=== PATIENT | male | born 1950 | race Caucasian/White ===

== ENCOUNTER 2016-06-21 12:21 | Observation (INO) | payer MEDICARE, OTHER ==
[2016-06-21] MEDS ORDERED: SODIUM CHLORIDE 0.9% 1,000 ML IV STA (12:55)
[2016-06-21] MEDS ORDERED: SODIUM CHLORIDE 0.9% 500 ML IV STA (12:55)
[2016-06-21] MEDS ORDERED: PANTOPRAZOLE 40 MG/10 ML VIAL IVP STA (12:56)
[2016-06-21 14:19] LABS: Basophils # (A) 0.1 k/uL (0-0.2); Basophils % (A) 1 %; CH 31.9; CHCM 33.9; Eosinophils # (A) 0.3 k/uL (0-0.7); Eosinophils % (A) 3 %; HCT 31.6 % (39.0-53.0); HDW 2.62; HGB 10.7 gm/dL (13.0-17.5); Luc % (Auto) 2; Lymphocytes % (A) 21 %; MCHC 33.9 g/dL (31.0-37.0); MCV 94.4 fL (80.0-100.0); Mean Platelet Volume 7.3; Monocytes # (A) 0.5 k/uL (0-1.0); Monocytes % (A) 5 %; Neutrophils # (A) 6.2 k/uL (1.3-7.7); Neutrophils % (A) 67 %; RBC 3.34 m/uL (4.30-5.90); RDW 13.8 % (11.5-15.5); WBC 9.2 k/uL (3.8-10.6); WBC (Perox) 9.63
[2016-06-21 14:22] LABS: Prothrombin Time 10.6 sec (9.0-12.0)
[2016-06-21 14:28] LABS: Calcium 8.4 mg/dL (8.4-10.2); Potassium 4.4 mmol/L (3.5-5.1); Total Bilirubin 0.3 mg/dL (0.2-1.3)
--- NOTE | 2016-06-21 16:34 | ED ---
Recheck HPI - General Chief Complaint: Recheck/Abnormal Lab/Rx Stated Complaint: POSS ULCER - SENT BY [facility] IN [place] Time Seen by Provider: 06/21/16 12:41 Source: patient Mode of arrival: ambulatory Limitations: no limitations - History of Present Illness Initial Comments: Extremities 5 years old male seen at the [facility] yesterday he had some blood work done and he also had some rectal bleed the call them today and advised him to come to the ER he did know his baseline hemoglobin level but he felt that he he fell from a bit of abdominal pain this pain is similar to when he had a duodenal ulcer he also felt very weak, just ambulating few feet makes him short winded planes about mild epigastric pain he is bit short winded no chest pain he is profoundly weak he saying he denies any blood thinners no frequency urgency dysuria no symptoms of TIA or CVA - Related Data Home Medications Medication Instructions Recorded Confirmed Allopurinol [Allopurinol] 100 mg PO DAILY 06/21/16 06/21/16 Lisinopril-Hctz 20-25 mg 1 tab PO DAILY 06/21/16 06/21/16 [Zestoretic 20-25] Omeprazole [PriLOSEC] 20 mg PO DAILY 06/21/16 06/21/16 amLODIPine BESYLATE [Amlodipine 5 mg PO DAILY 06/21/16 06/21/16 Besylate] Allergies Allergy/AdvReac Type Severity Reaction Status Date / Time No Known Allergies Allergy Verified 06/21/16 13:51 Review of Systems ROS Statement: Those systems with pertinent positive or pertinent negative responses have been documented in the HPI. ROS Other: All systems not noted in ROS Statement are negative. Past Medical History Past Medical History: Hypertension Additional Past Medical History / Comment(s): ulcers, gout History of Any Multi-Drug Resistant Organisms: None Reported Past Psychological History: No Psychological Hx Reported Smoking Status: Former smoker Past Alcohol Use History: None Reported Past Drug Use History: None Reported General Exam - General Exam Comments Initial Comments: General: The patient is awake and alert, in no distress, and does not appear acutely ill. Skin: Skin is warm and dry and no rashes or lesions are noted. Eye: Pupils are equal, round and reactive to light, extra-ocular movements are intact; there is normal conjunctiva bilaterally. Ears, nose, mouth and throat: There are moist mucous membranes and no oral lesions. Neck: The neck is supple, there is no tenderness or JVD. Cardiovascular: There is a regular rate and rhythm. No murmur, rub or gallop is appreciated. Respiratory: To auscultation bilateral, no wheezing no rhonchi no distress respiratory espinoza noticed Gastrointestinal: Mildly tender in epigastric area. Back: There is no tenderness to palpation in the midline. There is no obvious deformity. Musculoskeletal: Normal ROM, no tenderness, There is no pedal edema. There is no calf tenderness or swelling. No cords were appreciated. Neurological: CN II-XII intact, Cranial nerves III through XII are intact. There are no obvious motor or sensory deficits. Coordination appears grossly intact. Speech is normal. Psychiatric: Cooperative, appropriate mood & affect, normal judgment. Limitations: no limitations Course Vital Signs 06/21/16 06/21/16 06/21/16 12:23 12:40 14:15 Temperature 98.1 F Pulse Rate 92 99 77 Respiratory 20 18 16 Rate Blood Pressure 99/53 106/52 94/55 O2 Sat by Pulse 98 99 96 Oximetry 06/21/16 06/21/16 15:44 16:14 Temperature Pulse Rate 87 83 Respiratory 16 16 Rate Blood Pressure 117/60 103/55 O2 Sat by Pulse 96 98 Oximetry Him EKG is normal sinus rhythm medical rate is 93 ID interval is 152 QRS duration is 88 QT/QTc is 362/450 review of this EKG does not reveal any ST elevation or ST depression Medical Decision Making - Lab Data Result diagrams: 06/21/16 12:40 06/21/16 12:40 Lab Results 06/21/16 06/21/16 06/21/16 Range/Units 12:40 12:40 12:40 WBC 9.2 (3.8-10.6) k/uL RBC 3.34 L (4.30-5.90) m/uL Hgb 10.7 L (13.0-17.5) gm/dL Hct 31.6 L (39.0-53.0) % MCV 94.4 (80.0-100.0) fL MCH 32.0 (25.0-35.0) pg MCHC 33.9 (31.0-37.0) g/dL RDW 13.8 (11.5-15.5) % Plt Count 348 (150-450) k/uL Neutrophils % 67 % Lymphocytes % 21 % Monocytes % 5 % Eosinophils % 3 % Basophils % 1 % Neutrophils # 6.2 (1.3-7.7) k/uL Lymphocytes # 2.0 (1.0-4.8) k/uL Monocytes # 0.5 (0-1.0) k/uL Eosinophils # 0.3 (0-0.7) k/uL Basophils # 0.1 (0-0.2) k/uL PT 10.6 (9.0-12.0) sec INR 1.0 (<1.1) Sodium 140 (137-145) mmol/L Potassium 4.4 (3.5-5.1) mmol/L Chloride 105 (98-107) mmol/L Carbon Dioxide 20 L (22-30) mmol/L Anion Gap 15 mmol/L BUN 51 H (9-20) mg/dL Creatinine 1.80 H (0.66-1.25) mg/dL Est GFR (MDRD) Af Amer 46 (>60 ml/min/1.73 sqM) Est GFR (MDRD) Non-Af 38 (>60 ml/min/1.73 sqM) Glucose 101 H (74-99) mg/dL Calcium 8.4 (8.4-10.2) mg/dL Total Bilirubin 0.3 (0.2-1.3) mg/dL AST 35 (17-59) U/L ALT 60 (21-72) U/L Alkaline Phosphatase 107 (38-126) U/L Total Protein 7.0 (6.3-8.2) g/dL Albumin 4.1 (3.5-5.0) g/dL Amylase 101 (30-110) U/L Lipase 437 H (23-300) U/L Stool Occult Blood (Negative) Blood Type Blood Type Recheck Antibody Screen Spec Expiration Date 06/21/16 06/21/16 Range/Units 12:40 15:40 WBC (3.8-10.6) k/uL RBC (4.30-5.90) m/uL Hgb (13.0-17.5) gm/dL Hct (39.0-53.0) % MCV (80.0-100.0) fL MCH (25.0-35.0) pg MCHC (31.0-37.0) g/dL RDW (11.5-15.5) % Plt Count (150-450) k/uL Neutrophils % % Lymphocytes % % Monocytes % % Eosinophils % % Basophils % % Neutrophils # (1.3-7.7) k/uL Lymphocytes # (1.0-4.8) k/uL Monocytes # (0-1.0) k/uL Eosinophils # (0-0.7) k/uL Basophils # (0-0.2) k/uL PT (9.0-12.0) sec INR (<1.1) Sodium (137-145) mmol/L Potassium (3.5-5.1) mmol/L Chloride (98-107) mmol/L Carbon Dioxide (22-30) mmol/L Anion Gap mmol/L BUN (9-20) mg/dL Creatinine (0.66-1.25) mg/dL Est GFR (MDRD) Af Amer (>60 ml/min/1.73 sqM) Est GFR (MDRD) Non-Af (>60 ml/min/1.73 sqM) Glucose (74-99) mg/dL Calcium (8.4-10.2) mg/dL Total Bilirubin (0.2-1.3) mg/dL AST (17-59) U/L ALT (21-72) U/L Alkaline Phosphatase (38-126) U/L Total Protein (6.3-8.2) g/dL Albumin (3.5-5.0) g/dL Amylase (30-110) U/L Lipase (23-300) U/L Stool Occult Blood Positive (Negative) Blood Type A Positive Blood Type Recheck No Antibody Screen NEGATIVE Spec Expiration Date 06/24/2016 - 2339 Critical Care Time Total Critical Care Time: 35 Critical Care Time: Patient felt that meal to do a duodenal ulcer him he had a blood work done yesterday hemoglobin has dropped lower than his baseline he is on a blood thinners his lipase is slightly elevated as well for 37, blood was positive but didn't see any kassi dark tarry blood or bright red and his blood pressure was low was giving him a fluid bolus now blood (up as an IV Protonix spoke to Dr. Foreman he be admitted to his service and now will get Dr. Mere Rutherford on board and then will keep an eye on his lipase [facility] [place] office CT of the abdomen and considering his elevated lipase since his creatinine is elevated I have hydrated him and I think we have typed and crossed for transfusion in case his hemoglobin drops, once his creatinine Stabilized he could have a CT abdomen with IV contrast as a inpatient Disposition Clinical Impression: GI bleed, Hypotension, Elevated lipase Disposition: ADMITTED IP TO THIS HOSP Condition: Good
[2016-06-21] MEDS ORDERED: MORPHINE SULFATE 4 MG/ML SYRINGE IV PRN (16:38)
[2016-06-21] MEDS ORDERED: NALOXONE 0.4 MG/ML 1 ML VIAL IV PRN (16:38)
[2016-06-21] MEDS ORDERED: ACETAMINOPHEN TAB 325 MG TAB PO PRN (16:38)
--- NOTE | 2016-06-21 17:22 | XR ---
EXAMINATION TYPE: XR chest 2V DATE OF EXAM: 06/21/2016 5:16 PM COMPARISON: 09/02/2008 HISTORY: Abdominal pain. Chest pain. TECHNIQUE: Frontal and lateral views of the chest are obtained. FINDINGS: There is no heart failure nor confluent pneumonic infiltrate. There are no hilar masses. T here are chest leads. Only thorax is intact. IMPRESSION: No active cardiopulmonary disease. No change.
--- NOTE | 2016-06-21 17:24 | XR ---
EXAMINATION TYPE: XR KUB DATE OF EXAM: 06/21/2016 5:16 PM COMPARISON: 09/01/2008 HISTORY: Abdominal pain TECHNIQUE: 4 views FINDINGS: There is no sign of intestinal obstruction or pneumoperitoneum. Fecal pattern is normal. Th ere is no sign of a mass. Lung bases are clear. There are no pathologic calcifications over the kidne ys. IMPRESSION: Nonacute abdomen. No change.
[2016-06-21 19:00] VITALS: BMI 35.4
[2016-06-21 19:43] LABS: Basophils % (A) 1 %; CHCM 32.9; Eosinophils # (A) 0.3 k/uL (0-0.7); Eosinophils % (A) 4 %; HCT 28.4 % (39.0-53.0); HDW 2.68; HGB 9.5 gm/dL (13.0-17.5); Luc # (Auto) 0.19; Luc % (Auto) 3; Lymphocytes # (A) 1.7 k/uL (1.0-4.8); Lymphocytes % (A) 26 %; MCH 31.8 pg (25.0-35.0); MCHC 33.7 g/dL (31.0-37.0); MCV 94.6 fL (80.0-100.0); Mean Platelet Volume 7.3; Monocytes # (A) 0.4 k/uL (0-1.0); Monocytes % (A) 6 %; Neutrophils # (A) 3.8 k/uL (1.3-7.7); Neutrophils % (A) 60 %; RDW 13.6 % (11.5-15.5); WBC 6.4 k/uL (3.8-10.6); WBC (Perox) 6.78
[2016-06-22 00:54] LABS: Basophils % (A) 1 %; CH 31.6; CHCM 33.1; Eosinophils # (A) 0.3 k/uL (0-0.7); Eosinophils % (A) 5 %; HCT 29.3 % (39.0-53.0); HDW 2.61; HGB 9.2 gm/dL (13.0-17.5); Luc # (Auto) 0.18; Luc % (Auto) 3; Lymphocytes # (A) 2.1 k/uL (1.0-4.8); Lymphocytes % (A) 33 %; MCH 30.4 pg (25.0-35.0); MCHC 31.6 g/dL (31.0-37.0); MCV 96.2 fL (80.0-100.0); Mean Platelet Volume 7.6; Monocytes # (A) 0.4 k/uL (0-1.0); Monocytes % (A) 7 %; Neutrophils # (A) 3.3 k/uL (1.3-7.7); Neutrophils % (A) 52 %; RBC 3.04 m/uL (4.30-5.90); RDW 13.8 % (11.5-15.5); WBC 6.3 k/uL (3.8-10.6); WBC (Perox) 6.39
[2016-06-22 07:48] LABS: Basophils % (A) 1 %; CH 31.2; CHCM 33.2; Eosinophils # (A) 0.2 k/uL (0-0.7); Eosinophils % (A) 4 %; HCT 29.1 % (39.0-53.0); HDW 2.66; HGB 9.9 gm/dL (13.0-17.5); Luc # (Auto) 0.16; Luc % (Auto) 3; Lymphocytes # (A) 1.7 k/uL (1.0-4.8); Lymphocytes % (A) 30 %; MCH 32.3 pg (25.0-35.0); MCHC 34.1 g/dL (31.0-37.0); MCV 94.5 fL (80.0-100.0); Monocytes # (A) 0.4 k/uL (0-1.0); Monocytes % (A) 7 %; Neutrophils # (A) 3.1 k/uL (1.3-7.7); Neutrophils % (A) 56 %; RBC 3.08 m/uL (4.30-5.90); RDW 13.7 % (11.5-15.5); WBC 5.6 k/uL (3.8-10.6); WBC (Perox) 5.88
[2016-06-22 07:56] LABS: ALT 53 U/L (21-72); AST 28 U/L (17-59); Alkaline Phosphatase 86 U/L (38-126); Anion Gap 9 mmol/L; Blood Urea Nitrogen 30 mg/dL (9-20); Calcium 8.3 mg/dL (8.4-10.2); Carbon Dioxide 24 mmol/L (22-30); Chloride 110 mmol/L (98-107); Glucose 96 mg/dL (74-99); Non-African American GFR(MDRD) 56 (>60 ml/min/1.73 sqM); Potassium 4.6 mmol/L (3.5-5.1); Sodium 143 mmol/L (137-145); Total Bilirubin 0.4 mg/dL (0.2-1.3); Total Protein 6.4 g/dL (6.3-8.2)
[2016-06-22] MEDS ORDERED: PANTOPRAZOLE 40 MG/10 ML VIAL IV SCH (09:00)
--- NOTE | 2016-06-22 09:54 | P.CONS ---
History of Present Illness - Reason for Consult Consult date: 06/22/16 GI bleed history of duodenal ulcer Requesting physician: Kalina Foreman - History of Present Illness 65-year-old [facility] hypertension, duodenal ulcer disease several years ago and gout. Presented to the ER with mild abdominal pain in the midepigastrium with black colored stool x 4 days similar to when he had a duodenal ulcer several years ago. Patient states he had an EGD performed by Dr. Chauhan several years ago with findings of "large duodenal ulcer". Denies ETOH, ASA or NSAID usage. Few doses of Pepto-Bismol a few days ago. Mild epigastric discomfort no emesis. No weight loss or fever. Hemoglobin 10.7 on admission currently 9.2. White count 6.3. BUN 51 creatinine 1.8. Hemoccult stool positive. Review of Systems Constitutional: Denies fever, chills, sweats, weight gain, or loss. HEENT: Negative for migraines, blurred vision or loss, earaches, drainage, tinnitus, oral mucosal lesions, dysphagia, or odynophagia. Cardiac: Hypertension. Negative for chest pain, arrhythmias, or palpitation. Respiratory: Negative for shortness of breath, hemoptysis, cough, or sputum production. Gastrointestinal: See HPI for pertinent findings. Genitourinary: Negative for hematuria, urgency, frequency, polyuria, dysuria, or penile discharge. Musculoskeletal: History of gout. Negative for muscle aches, swelling, arthritis, and arthralgias. Neurologic: Negative for stroke or TIA. Endocrine: Negative for thyroid problems. Skin: Negative for rash or itching. Psychiatric: Negative history for depression and anxiety Past Medical History Past Medical History: Hypertension Additional Past Medical History / Comment(s): ulcers, gout History of Any Multi-Drug Resistant Organisms: None Reported Past Surgical History: Appendectomy, Tonsillectomy Additional Past Surgical History / Comment(s): COLONOSCOPY, EGD [facility] DR Audie CHAUHAN 6 YEARS AGO FOR DUODENAL ULCER, RIGHT ROTATER CUFF, Past Anesthesia/Blood Transfusion Reactions: No Reported Reaction Past Psychological History: No Psychological Hx Reported Smoking Status: Never smoker Past Alcohol Use History: None Reported Past Drug Use History: None Reported - Past Family History Father Family Medical History: Prostate Disorder Additional Family Medical History / Comment(s): FROM PROSATE CA, DUODENAL ULCER Medications and Allergies Home Medications Medication Instructions Recorded Confirmed Type Allopurinol [Allopurinol] 100 mg PO DAILY 06/21/16 06/21/16 History Lisinopril-Hctz 20-25 mg 1 tab PO DAILY 06/21/16 06/21/16 History [Zestoretic 20-25] Omeprazole [PriLOSEC] 20 mg PO DAILY 06/21/16 06/21/16 History amLODIPine BESYLATE [Amlodipine 5 mg PO DAILY 06/21/16 06/21/16 History Besylate] Allergies Allergy/AdvReac Type Severity Reaction Status Date / Time No Known Allergies Allergy Verified 06/21/16 13:51 Physical Exam Vitals: Vital Signs Temp Pulse Pulse Resp BP BP Pulse Ox 06/22/16 04:00 16 06/22/16 03:44 98 F 102 H 16 136/68 96 06/21/16 23:47 97.8 F 88 16 105/61 95 06/21/16 23:41 16 06/21/16 20:00 16 06/21/16 18:41 97.7 F 90 16 115/57 98 06/21/16 17:30 97.3 F L 85 18 110/55 99 Intake and Output 06/21/16 06/22/16 06/22/16 22:59 06:59 14:59 Other: # Voids 1 Weight 118.7 kg General appearance: The patient is alert, oriented, in no acute distress. HET: Head is normocephalic and atraumatic. Pupils are equal and reactive. Oropharynx is clear without lesions. Neck: Supple without lymphadenopathy. Trachea midline. Heart: S1 S2. Regular rate and rhythm. Lungs: No crackles or wheezes are heard. Abdomen: Soft, mild midepigastric tenderness, nondistended with bowel sounds. No peritoneal signs. No palpable organomegaly or masses. Extremities: Normal skin color and turgor. No cyanosis, rash, ulceration, clubbing, or edema. Radial and pedal pulses are 2/4 bilaterally. Neurological: No focal deficits. Strength and sensation are grossly intact. Results CBC & Chem 7: 06/22/16 06:49 06/22/16 06:49 Labs: Abnormal Lab Results - Last 24 Hours (Table) 06/21/16 06/22/16 Range/Units 19:02 00:26 RBC 3.00 L 3.04 L (4.30-5.90) m/uL Hgb 9.5 L 9.2 L (13.0-17.5) gm/dL Hct 28.4 L 29.3 L (39.0-53.0) % Assessment and Plan (1) GI bleed Narrative/Plan: Possible recurrent peptic ulcer disease. History of duodenal ulcer. Status: Acute (2) Acute blood loss anemia Status: Acute Plan: 1. Protonix 40 mg IV every 12. 2. CBC monitoring. 3. We'll proceed with EGD evaluation this afternoon. The processor helper has discussed the risks, benefits and alternative therapies for the above-mentioned procedure and for both sedation/analgesia as well as necessary blood product administration, if indicated, as they pertain to this patient. The patient has indicated understanding and acceptance of the risks and procedures discussed. Thank you for this kind referral and the opportunity to participate in the care of your patient. This consultation was discussed with Dr. Moore. The impression and plan of care have been directed as dictated.
[2016-06-22] MEDS: PANTOPRAZOLE 40 MG/10 ML VIAL IV SCH ×2 (11:57→20:55)
[2016-06-22] MEDS: ALLOPURINOL 100 MG TAB PO SCH (11:57)
[2016-06-22 13:35] LABS: Basophils % (A) 1 %; CH 31.1; CHCM 33.3; Eosinophils # (A) 0.2 k/uL (0-0.7); Eosinophils % (A) 4 %; HCT 28.5 % (39.0-53.0); HGB 9.7 gm/dL (13.0-17.5); Luc # (Auto) 0.17; Luc % (Auto) 3; Lymphocytes # (A) 1.5 k/uL (1.0-4.8); Lymphocytes % (A) 27 %; MCH 31.9 pg (25.0-35.0); MCHC 33.9 g/dL (31.0-37.0); Mean Platelet Volume 7.1; Monocytes # (A) 0.4 k/uL (0-1.0); Monocytes % (A) 7 %; Neutrophils # (A) 3.1 k/uL (1.3-7.7); Neutrophils % (A) 58 %; RBC 3.03 m/uL (4.30-5.90); RDW 13.6 % (11.5-15.5); WBC 5.4 k/uL (3.8-10.6); WBC (Perox) 5.61
--- NOTE | 2016-06-22 14:13 | CONS ---
DATE OF CONSULTATION: 06/22/2016 REASON FOR CONSULTATION: Renal failure. HISTORY OF PRESENT ILLNESS: Patient is a 65-year-old white male with no prior history of kidney disease. He was admitted to the hospital with complaints of rectal bleeding. He also had some abdominal pain and overall not feeling well. He is scheduled for an endoscopy today. Patient did admit to history of use of nonsteroidal anti-inflammatory agents prior to admission. His blood pressure was low with systolic in the 90s when he first came in. Patient had been on EDNA inhibitors at home and he did admit to use of nonsteroidal anti-inflammatory agents. PAST MEDICAL HISTORY: 1. Hypertension. 2. Gastroesophageal reflux disease. 3. Hyperuricemia/gout. PAST SURGICAL HISTORY: None. SOCIAL HISTORY: Patient is an ex-smoker. No history of drug abuse or alcohol abuse. Medications at home included: 1. Allopurinol. 2. Lisinopril/hydrochlorothiazide. 3. Omeprazole. 4. Amlodipine. On examination, patient is comfortable, awake, alert, oriented x3. He is not in any acute distress. Blood pressure is 122/61, heart rate 96 per minute. He is afebrile. EXAMINATION OF THE HEART: S1 and S2. EXAMINATION OF THE LUNGS: Bilateral breath sounds are heard. ABDOMEN: Soft, nontender. Examination of lower extremities shows no evidence of edema. 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 Labs show sodium 143, potassium 4.6, chloride 110, BUN 30, serum creatinine 1.29. Hemoglobin 9.7 g/dL. ASSESSMENT: 1. Acute kidney injury. Appears to be mainly prerenal with serum creatinine improved from 1.8 to 1.29 mg/dL. Continue off of EDNA inhibitors. Continue to avoid nonsteroidal anti-inflammatory agents. Patient has been maintained on IV fluids, which we can continue until he is eating. 2. Rule out chronic kidney disease. We do not have any previous labs available for comparison at this time. 3. Peptic ulcer disease; scheduled for endoscopy today. PLAN: Continue off of EDNA inhibitors. Continue IV fluids. Avoid NSAIDs and repeat labs in a.m.
[2016-06-22] MEDS ORDERED: LACTATED RINGERS 1,000 ML IV ONE ×2 (17:00)
[2016-06-22] MEDS ORDERED: PROPOFOL 10 MG/ML 20 ML VIAL IV ONE (17:20)
--- NOTE | 2016-06-22 18:01 | P.PCN ---
Date of Procedure: 06/22/16 Procedure(s) Performed: Procedure: Esophagogastroduodenoscopy and biopsy. Preoperative diagnosis: Upper GI bleeding and anemia. Postoperative diagnosis: 1. Duodenal ulcer in the immediate post bulbar area not actively bleeding at the time of this exam or causing any gastric outlet obstruction. 2. Mild antral gastritis, biopsies obtained to rule out H. pylori infection. Preparation and sedation: Was provided by anesthesia. Brief clinical history: The patient is a 65-year-old male with PMH of hypertension, duodenal ulcer disease several years ago and gout. Presented to the ER with mild abdominal pain in the midepigastrium with black colored stool x 4 days similar to when he had a duodenal ulcer several years ago. Patient states he had an EGD performed by Dr. Chauhan several years ago with findings of "large duodenal ulcer". Denies ETOH, ASA or NSAID usage. Had few doses of Pepto- Bismol a few days ago. Mild epigastric discomfort no emesis. No weight loss or fever. Hemoglobin 10.7 on admission currently 9.2. White count 6.3. BUN 51 creatinine 1.8. Hemoccult stool positive. The details are summarized in the history and physical and dictated consultation. Procedure: With the patient on his left lateral decubitus position and after informed consent and adequate sedation, I passed the Olympus-GIF 160 video upper endoscope through the cricopharyngeus down the esophagus. The esophagus appeared healthy with no ulcers, erosions, strictures or Metz's esophagus. There was no hiatal hernia, then the endoscope was advanced into the stomach which was insufflated with air and inspected in detail including the retroflex view in the cardia. There was some mottling and erythema in the antrum consistent with mild antral gastritis but no ulcers or definite erosions. Pyloric channel did not show any ulcers. Duodenal bulb showed erythema and edema and in the immediate post bulbar area there was a large ulcer covered with white exudate with some edema and friability noted upon manipulating the endoscope into the descending duodenum. There was no spontaneous bleeding or any visible vessel, clots or dark protuberances. Descending duodenum showed normal mucosa and bilious colored secretions. I obtained biopsies from the antrum before the endoscope was withdrawn. All secretions in the stomach, esophagus and duodenum were normal in color. The patient tolerated the procedure well. Plan: The patient was reassured. Would keep on PPI and clear liquid diet and monitor blood counts closely. Further plans based on his course and biopsy results.
[2016-06-22 19:08] LABS: Basophils % (A) 1 %; CH 31.2; CHCM 32.8; Eosinophils # (A) 0.2 k/uL (0-0.7); Eosinophils % (A) 4 %; HCT 30.1 % (39.0-53.0); HDW 2.68; HGB 10.2 gm/dL (13.0-17.5); Luc % (Auto) 2; Lymphocytes # (A) 1.3 k/uL (1.0-4.8); Lymphocytes % (A) 25 %; MCH 32.4 pg (25.0-35.0); MCHC 33.9 g/dL (31.0-37.0); MCV 95.6 fL (80.0-100.0); Mean Platelet Volume 6.8; Monocytes # (A) 0.2 k/uL (0-1.0); Monocytes % (A) 5 %; Neutrophils # (A) 3.3 k/uL (1.3-7.7); Neutrophils % (A) 63 %; RBC 3.15 m/uL (4.30-5.90); RDW 13.6 % (11.5-15.5); WBC 5.2 k/uL (3.8-10.6); WBC (Perox) 5.43
--- NOTE | 2016-06-22 19:11 | HP ---
DATE OF ADMISSION: Patient is a 65-year-old with history of duodenal ulcer in the past; came in with epigastric abdominal pain which resolved at this point of time. Had dark-colored stools, about 3 to 4 a day for the last 3 days. Last stool was about 3 days ago. His stool yesterday and today was normal, as per the patient. Patient's hemoglobin was 10.7; now around 9.7. Patient has highly elevated BUN and creatinine went up to 1.8. Patient's baseline creatinine is not available at this time. Patient is on lisinopril hydrochlorothiazide along with amlodipine. Blood pressure is normal without these medications. Patient may have hypotension related to these medications. Anti-hypertensives are being held at this point of time. Upon discharge patient may not need hydrochlorothiazide and lisinopril. He probably still will require amlodipine. Will continue to monitor him without blood pressure medications until tomorrow. REVIEW OF SYSTEMS: CONSTITUTIONAL: No fever, no malaise, no fatigue. HEENT: No recent visual problems or hearing problems. Denied any sore throat. CARDIOVASCULAR: No chest pain, orthopnea, PND, no palpitations, no syncope. PULMONARY: No shortness of breath, no cough, no hemoptysis. GASTROINTESTINAL: As described in HPI. NEUROLOGICAL: No headaches, no weakness, no numbness. HEMATOLOGICAL: Denies any bleeding or petechiae. GENITOURINARY: Denies any burning micturition, frequency, or urgency. MUSCULOSKELETAL/RHEUMATOLOGICAL: Denies any joint pain, swelling, or any muscle pain. ENDOCRINE: Denies any polyuria or polydipsia. The rest of the 14 point review of systems is negative. PAST MEDICAL HISTORY: 1. Hypertension. 2. Gout. 3. Duodenal ulcer in the past. SOCIAL HISTORY: Denied any smoking, alcohol abuse or any drug abuse. FAMILY HISTORY: Father had prostate cancer and duodenal ulcer. Home medications include: 1. Allopurinol. 2. Lisinopril hydrochlorothiazide. 3. Omeprazole. 4. Amlodipine. ALLERGIES: NO KNOWN DRUG ALLERGIES. PHYSICAL EXAMINATION: VITAL SIGNS: Temperature 97.6, pulse of 96, respiratory rate of 18. Blood pressure is 122/61. Saturating at 97% on room air. GENERAL: The patient is alert and oriented x3, not in any acute distress. Well developed, well nourished. HEENT: Pupils are round and equally reacting to light. EOMI. No scleral icterus. No conjunctival pallor. Normocephalic, atraumatic. No pharyngeal erythema. No thyromegaly. CARDIOVASCULAR: S1 and S2 present. No murmurs, rubs, or gallops. PULMONARY: Chest is clear to auscultation, no wheezing or crackles. ABDOMEN: Soft, nontender, nondistended, normoactive bowel sounds. No palpable organomegaly. MUSCULOSKELETAL: No joint swelling or deformity. EXTREMITIES: No cyanosis, clubbing, or pedal edema. NEUROLOGICAL: Gross neurological examination did not reveal any focal deficits. SKIN: No rashes. LABORATORY DATA: CBC, CMP as mentioned above. BUN and creatinine as mentioned above. ASSESSMENT AND PLAN: 1. Acute gastrointestinal bleed, probably upper gastrointestinal bleed. Patient has peptic ulcer disease. Patient is on Protonix. Patient is going for upper GI endoscopy today. 2. Acute blood loss anemia from gastrointestinal bleed. 3. Tachycardia due to acute blood loss anemia. 4. Acute renal failure probably related to: 1) gastrointestinal bleed; 2) anti-hypertensive medications. Patient may eventually require amlodipine. Will monitor blood pressure without any of his antihypertensives. Patient is on lisinopril and hydrochlorothiazide, which will be discontinued. Patient is on IV fluids, which will be continued. Kidney function did improve. Will continue to monitor the kidney function. Anti-hypertensive medications upon discharge depending on his blood pressure behavior today and tomorrow. Patient may not need hydrochlorothiazide and lisinopril; most probably will need amlodipine.
[2016-06-22] MEDS: SODIUM CHLORIDE 0.9% 1,000 ML IV SCH (20:54)
[2016-06-23 01:55] LABS: Basophils # (A) 0.1 k/uL (0-0.2); Basophils % (A) 1 %; CH 31.4; Eosinophils # (A) 0.2 k/uL (0-0.7); Eosinophils % (A) 4 %; HCT 29.6 % (39.0-53.0); HDW 2.71; HGB 9.9 gm/dL (13.0-17.5); Luc # (Auto) 0.16; Luc % (Auto) 3; Lymphocytes # (A) 1.7 k/uL (1.0-4.8); Lymphocytes % (A) 29 %; MCHC 33.5 g/dL (31.0-37.0); MCV 95.4 fL (80.0-100.0); Mean Platelet Volume 6.8; Monocytes # (A) 0.4 k/uL (0-1.0); Monocytes % (A) 7 %; Neutrophils # (A) 3.5 k/uL (1.3-7.7); Neutrophils % (A) 57 %; RDW 13.6 % (11.5-15.5); WBC (Perox) 6.28
[2016-06-23] MEDS: SODIUM CHLORIDE 0.9% 1,000 ML IV SCH ×2 (06:39→16:49)
[2016-06-23 08:24] LABS: Anion Gap 9 mmol/L; Blood Urea Nitrogen 17 mg/dL (9-20); Calcium 8.4 mg/dL (8.4-10.2); Carbon Dioxide 22 mmol/L (22-30); Chloride 111 mmol/L (98-107); Glucose 145 mg/dL (74-99); Non-African American GFR(MDRD) >60 (>60 ml/min/1.73 sqM); Potassium 4.4 mmol/L (3.5-5.1); Sodium 142 mmol/L (137-145)
[2016-06-23] MEDS: ALLOPURINOL 100 MG TAB PO SCH (09:02)
[2016-06-23] MEDS: PANTOPRAZOLE 40 MG/10 ML VIAL IV SCH ×2 (09:03→19:41)
[2016-06-23 11:42] LABS: Basophils # (A) 0.1 k/uL (0-0.2); Basophils % (A) 1 %; CH 31.7; CHCM 32.4; Eosinophils # (A) 0.3 k/uL (0-0.7); Eosinophils % (A) 5 %; HCT 30.2 % (39.0-53.0); HDW 2.61; HGB 9.5 gm/dL (13.0-17.5); Luc # (Auto) 0.14; Luc % (Auto) 2; Lymphocytes # (A) 1.8 k/uL (1.0-4.8); Lymphocytes % (A) 26 %; MCH 30.9 pg (25.0-35.0); MCHC 31.5 g/dL (31.0-37.0); MCV 98.3 fL (80.0-100.0); Mean Platelet Volume 7.4; Monocytes # (A) 0.4 k/uL (0-1.0); Monocytes % (A) 5 %; Neutrophils # (A) 4.2 k/uL (1.3-7.7); Neutrophils % (A) 62 %; RBC 3.07 m/uL (4.30-5.90); RDW 13.9 % (11.5-15.5); WBC 6.8 k/uL (3.8-10.6); WBC (Perox) 6.68
--- NOTE | 2016-06-23 13:00 | P.PN ---
Subjective Principal diagnosis: this is a 65-year-old male with acute kidney injury secondary to low blood pressure, EDNA inhibitor's and possibly use of nonsteroidals. He came in because of GI bleed.he had a EGD and a duodenal ulcer was noted without any active bleeding. Mild antral gastritis was also noted. his creatinine is improved to 1.12 this morning. He is completely asymptomatic and is able to walk around and is looking forward to eating full diet as morning. He has no dizziness chest pain shortness of breath no abdominal pain or back pain. No bowel movement this morning. His hemoglobin stable, currently 9.5was 10.7 on admission on 06/21/2016 Objective - Vital Signs Vital signs: Vital Signs Temp 97.5 F L 06/23/16 07:47 Pulse 90 06/23/16 07:47 Resp 16 06/23/16 07:47 BP 153/66 06/23/16 07:47 Pulse Ox 98 06/23/16 07:47 Intake & Output 06/22/16 06/23/16 06/23/16 18:59 06:59 18:59 Intake Total 860 525 Balance 860 525 Intake: IV 200 Oral 660 525 Other: Voiding Method Toilet Toilet Toilet # Voids 1 on examination is awake alert oriented HEENT exam no JVP neck supple no facial asymmetry Lungs are clear to auscultation good air entry bilaterally. Heart sounds are unremarkable Abdomen soft nontender Extremity exam was no edema Neurologically awake alert oriented - Labs CBC & Chem 7: 06/23/16 07:35 06/23/16 07:35 Labs: Abnormal Lab Results - Last 24 Hours (Table) 06/22/16 06/22/16 06/23/16 Range/Units 12:52 18:40 01:28 RBC 3.03 L 3.15 L 3.10 L (4.30-5.90) m/uL Hgb 9.7 L 10.2 L 9.9 L (13.0-17.5) gm/dL Hct 28.5 L 30.1 L 29.6 L (39.0-53.0) % Chloride (98-107) mmol/L Glucose (74-99) mg/dL 06/23/16 06/23/16 Range/Units 07:35 07:35 RBC 3.07 L (4.30-5.90) m/uL Hgb 9.5 L (13.0-17.5) gm/dL Hct 30.2 L (39.0-53.0) % Chloride 111 H (98-107) mmol/L Glucose 145 H (74-99) mg/dL Assessment and Plan Plan: impression. 1. Acute kidney injury from low blood pressure, EDNA inhibitor's and possible use of nonsteroidals resolved creatinines down to 1.12. 2. Upper GI bleed from duodenal ulcer. Has had this 7 years ago. Cause not very clear. Recommendation. recommendation is to continue same medication hold off the EDNA inhibitor is for right now until followed up in the outpatient and resume if necessary based on blood pressures
--- NOTE | 2016-06-23 18:35 | PN ---
DATE OF SERVICE: 06/23/2016 Mr. Agosto is a 65-year-old male with a past medical history of duodenal ulcer, hypertension, and gout, coming to the hospital with the chief complaint of epigastric abdominal pain and dark-colored stool that has been going on for the past 3 to 4 days. The patient's hemoglobin at the time of admission is 10.4 and his creatinine was also elevated at time of admission. Patient was given IV fluids and GI, Dr. Moore has been consulted. The patient did have an EGD done yesterday showing a duodenal ulcer in the immediate post bulbar area and mild gastritis. This morning the patient has been started on clear liquids and has been tolerating well. He does not have any active complaints. Patient did have a bowel movement this morning that was brownish in color, but no active bleeding noticed. REVIEW OF SYSTEMS: CONSTITUTIONAL: Denies having any dizziness, loss of consciousness, no fevers. GI: He has mild abdominal discomfort, but no pain. No nausea, vomiting. He had a bowel movement which is brown in color. CHEST: No cough. No difficulty in breathing. CARDIAC: No chest pain or palpitations. Patient's medications have been reviewed. He is on: 1. Tylenol. 2. Allopurinol. 3. Morphine. 4. Narcan. 5. Protonix IV. 6. IV fluids. 7. Normal saline. On examination, patient's vital signs temperature 97.3, heart rate 85, respiratory rate 16, blood pressure 137/65, saturating at 97% on room air. GENERAL EXAMINATION: Patient appears to be in no acute distress lying comfortably in the bed. HEAD: Atraumatic, normocephalic. EYES: Pupils, round, and reactive to light. NECK: No JVD. No thyromegaly. CARDIOVASCULAR: S1, S2 heard. LUNGS: Bilateral breath sounds are positive. No wheeze or crackles. ABDOMEN: Soft, nontender. Bowel sounds are positive. EXTREMITIES: No edema. No cyanosis, no clubbing. Peripheral pulses are felt. MUSCULOSKELETAL: No joint swelling or deformity. NEUROLOGICAL: CHEESE SUPERVISOR alert, awake, oriented x3. No focal deficits. SKIN: No rashes. LABS: Hemoglobin is 9.5, platelets of 327. Sodium 142, potassium 4.4, chloride 111, bicarb 22, BUN 17, creatinine 1.12. ASSESSMENT AND PLAN: 1. Anemia secondary to acute gastrointestinal bleed. 2. Gastrointestinal bleed from duodenal ulcer and also having mild antral gastritis. 3. Acute kidney injury, most likely prerenal in the origin. His creatinine is improving with IV fluids. We will avoid nephrotoxins. 4. Hypertension. 5. History of duodenal ulcer in the past. 6. History of gout. Plan is to continue the patient on PPIs, and we will advance the diet as tolerated. We will check his hemoglobin. We will resume his home medications and further recommendations to follow depending on the progress of the patient.
[2016-06-23 19:28] LABS: Basophils % (A) 1 %; CH 31.5; Eosinophils # (A) 0.3 k/uL (0-0.7); Eosinophils % (A) 4 %; HCT 30.4 % (39.0-53.0); HDW 2.69; HGB 10.1 gm/dL (13.0-17.5); Luc # (Auto) 0.15; Luc % (Auto) 2; Lymphocytes # (A) 1.6 k/uL (1.0-4.8); Lymphocytes % (A) 24 %; MCHC 33.3 g/dL (31.0-37.0); MCV 95.9 fL (80.0-100.0); Monocytes # (A) 0.3 k/uL (0-1.0); Monocytes % (A) 5 %; Neutrophils # (A) 4.2 k/uL (1.3-7.7); Neutrophils % (A) 65 %; RBC 3.17 m/uL (4.30-5.90); RDW 13.5 % (11.5-15.5); WBC 6.6 k/uL (3.8-10.6); WBC (Perox) 7.16
[2016-06-24] MEDS: SODIUM CHLORIDE 0.9% 1,000 ML IV SCH ×2 (06:54→06:55)
[2016-06-24 07:36] LABS: Anion Gap 8 mmol/L; Blood Urea Nitrogen 14 mg/dL (9-20); Carbon Dioxide 23 mmol/L (22-30); Chloride 110 mmol/L (98-107); Glucose 94 mg/dL (74-99); Non-African American GFR(MDRD) >60 (>60 ml/min/1.73 sqM); Potassium 4.8 mmol/L (3.5-5.1); Sodium 141 mmol/L (137-145)
[2016-06-24 07:50] VITALS: RESP 16
[2016-06-24] MEDS: ALLOPURINOL 100 MG TAB PO SCH (08:49)
[2016-06-24] MEDS: PANTOPRAZOLE 40 MG/10 ML VIAL IV SCH (08:49)
[2016-06-24 11:24] VITALS: BP 132/68; PULSE 69; TEMP 98.8
--- NOTE | 2016-06-25 17:26 | DS ---
DATE OF ADMISSION: 06/21/2016 DATE OF DISCHARGE: 06/24/2016 HOSPITAL COURSE: Mr. Agosto is a 65-year-old male with a past medical history of duodenal ulcer, hypertension and gout, coming to the hospital with the chief complaint of epigastric abdominal pain and dark-colored stool. The patient was also having acute kidney injury secondary to hypovolemia. Patient was given IV fluids, started on IV Protonix. GI, Dr. Moore, was consulted. The patient did have an EGD done showing a duodenal ulcer in the immediate post-bulbar area and also showing mild gastritis. The patient was advised to continue on PPIs. Patient's blood pressure medication has been held in view of his elevated creatinine and low blood pressure. His kidney function is back to baseline today. We are holding off his EDNA inhibitors for now, as his blood pressure has been within normal limits without his blood pressure medications. Patient had a bowel movement this afternoon which was normal. He did not notice any blood in his bowel movement. PATIENT'S VITALS AT THE TIME OF DISCHARGE: Temperature 98.8, heart rate 69, respiratory rate 16, blood pressure 132/68. Saturating at 94% on room air. GENERAL EXAMINATION: Patient appears to be in no acute distress. Alert and awake, oriented x3. HEAD: Atraumatic, normocephalic. EYES: No pallor. NECK: No JVD. CARDIOVASCULAR: S1, S2 heard. BILATERAL LOWER EXTREMITIES: No edema. No cyanosis. DISTRIBUTION AGENT: No focal deficits. PATIENT'S LABS AT THE TIME OF DISCHARGE: White count 6.6, hemoglobin 10.1, platelets 351. Sodium 141, potassium 4.8, chloride 110, bicarb 23. BUN 14, creatinine 1.09. DISCHARGE DIAGNOSES: 1. Acute blood loss anemia secondary to gastrointestinal bleed. 2. Gastrointestinal bleed from duodenal ulcer and also has mild antral gastritis. 3. Acute kidney injury secondary to dehydration and ( ) secondary to hypovolemia. Creatinine is back to baseline. 4. Hypertension. 5. History of duodenal ulcer in the past. 6. History of gout. PATIENT'S DISCHARGE MEDICATIONS: 1. Allopurinol 100 mg p.o. daily. 2. Omeprazole 20 mg p.o. daily. 3. Amlodipine 5 mg p.o. daily. His Zestoretic has been kept on hold until he follows up with his primary care physician, as he is recovering from the acute kidney injury. Normal diet. Activity as tolerated. The patient is advised to follow up with his primary care physician, Dr. Oliver Price, in 2 to 3 days. Patient is being discharged home in stable condition. More than 35 minutes spent on discharge of the patient.
== END 2016-06-24 15:59 | disposition home or self-care (01) ==
LOC: EC 12:21 → 3OBS 16:38
PROVIDERS: ADMIT Hospitalist; ATTEND Hospitalist
DX: D62 Acute posthemorrhagic anemia (principal); K26.4 Chronic or unspecified duodenal ulcer with hemorrhage; K29.60 Other gastritis without bleeding; E86.0 Dehydration; E86.1 Hypovolemia; N17.9 Acute kidney failure, unspecified; I10 Essential (primary) hypertension; M10.9 Gout, unspecified; K21.9 Gastro-esophageal reflux disease without esophagitis; Z79.899 Other long term (current) drug therapy; Z87.891 Personal history of nicotine dependence; R53.1 Weakness; I95.9 Hypotension, unspecified; N14.1 Nephropathy induced by other drugs, medicaments and biological substances; T50.995A Adverse effect of other drugs, medicaments and biological substances, initial encounter
CPT/HCPCS: 99284 ×2; 96374 ×2; 96361 ×6; 36415; 86900; 86901; 88305; 80053 ×2; 80048 ×2; 82150; 83690; 85025 ×3; 85610; 86850; 82272; 88342; 71020; 74000; 43239; G0378 ×4; J2704; C9113 ×4; 93005

== ENCOUNTER 2019-01-14 12:05 | Day surgery (SDC) | payer OTHER ==
[2019-01-09 14:26] VITALS: BMI 33.6
[~2019-01-14 12:05] MED LIST: LACTATED RINGERS 1,000 ML IV SCH; LIDOCAINE 1% 20 ML VIAL (10MG/ML) FOR IV START INTRADERMA PRN
[2019-01-14 12:22] VITALS: TEMP 98.1
[2019-01-14] MEDS ORDERED: LACTATED RINGERS 1,000 ML IV ONE (12:22)
[2019-01-14] MEDS ORDERED: PROPOFOL 10 MG/ML 20 ML VIAL IV ONE (13:15)
--- NOTE | 2019-01-14 13:48 | P.PCN ---
Date of Procedure: 01/14/19 Procedure(s) Performed: BRIEF HISTORY: Patient is a 68-year-old pleasant white male, scheduled for an elective colonoscopy as a part of an elective colonoscopy as a part of screening for colorectal neoplasia. His last coloscopy was about 10 years ago. PROCEDURE PERFORMED: Colonoscopy with biopsy and snare polypectomy. PREOPERATIVE DIAGNOSIS: Screening for colon cancer. IV sedation per Anesthesia. PROCEDURE: After informed consent was obtained, the patient, was brought into the endoscopy unit. IV sedation was administered by Anesthesia under continuous monitoring. Digital rectal examination was normal. Initially the Olympus CF-160 flexible video colonoscope was then inserted in the rectum, gradually advanced into the cecum without any difficulty. Careful examination was performed as the scope was gradually being withdrawn. Ileocecal valve and the appendiceal orifice were visualized and appeared normal. Prep was fair.. Mucosa of the cecum, ascending colon, transverse colon, descending colon, sigmoid colon, and rectum appeared normal. Retroflexion was performed in the rectum and there was a 2.5-3 cm distal rectal polypoid mass involving the dentate line. Part of the polyp was removed by snare polypectomy and this time it appeared the mass was very suspicious for neoplasm. Hence multiple biopsies were done from this area. Scattered sigmoidal diverticulosis seen. The patient tolerated the procedure well. IMPRESSION: 2.5-3 cm distal rectal polypoid mass involving the dentate line status post biopsy/partial piecemeal snare polypectomy Scattered sigmoid diverticulosis. RECOMMENDATIONS: Findings of this examination were discussed with the patient as well as his family. He was advised to follow with the biopsy results and he'll be seen in office next week..
[2019-01-14 14:10] VITALS: BP 133/64; PULSE 75; RESP 18
== END 2019-01-14 14:30 | disposition home or self-care (01) ==
LOC: ORWHC2ENDO 12:05
PROVIDERS: ATTEND Internal Medicine Gastroenterology
DX: Z12.11 Encounter for screening for malignant neoplasm of colon (principal); C20 Malignant neoplasm of rectum; K57.30 Diverticulosis of large intestine without perforation or abscess without bleeding; K21.9 Gastro-esophageal reflux disease without esophagitis; I10 Essential (primary) hypertension; F32.9 Major depressive disorder, single episode, unspecified; Z79.899 Other long term (current) drug therapy; Z97.2 Presence of dental prosthetic device (complete) (partial)
CPT/HCPCS: 45385; 45380; 88305; J2704

== ENCOUNTER → 2019-02-25 | Outpatient (CLI) | payer OTHER ==
--- NOTE | 2019-02-25 15:14 | CT ---
EXAMINATION TYPE: CT ChestAbdPelvis w con DATE OF EXAM: 02/25/2019 COMPARISON: HISTORY: rectal and prostate ca CT DLP: 2550.4 mGycm CONTRAST: CT scan of the chest, abdomen and pelvis is performed with Oral Contrast and with IV Contrast, patien t injected with 100 mL of Isovue 300. CT Chest: LUNGS: The lungs are clear and free of infiltrate or atelectasis. No pulmonary nodule or mass is det ected. No pleural effusion or CT evidence of interstitial lung disease. MEDIASTINUM: Thoracic aorta is of normal caliber. The heart is not enlarged. No evidence for media stinal mass or adenopathy. HILAR STRUCTURES: No evidence for mass. No hilar adenopathy is appreciated. OTHER: No significant abnormality. None CONTRAST CT ABDOMEN AND PELVIS FINDINGS: LIVER/GB: Fatty infiltration is noted. No calcified gallstones. No space occupying hepatic lesion. Biliary tree is of normal caliber. PANCREAS: No inflammation. No distinct mass. SPLEEN: No splenic enlargement. No lesion seen. ADRENALS: No nodule. No thickening. KIDNEYS/BLADDER: No hydronephrosis. No nephrolithiasis. No disctinct renal mass. BOWEL: Normal appendix. Normal bowel caliber. No inflammation. GENITAL ORGANS: No gross abnormality. LYMPH NODES: No greater than 1cm abdominal or pelvic lymph nodes are appreciated. AORTA: No significant abnormality. OSSEOUS STRUCTURES: No significant abnormality is seen. OTHER: No significant additional abnormality is seen. IMPRESSION: 1. No evidence of metastatic disease. 2. Fatty hepatic infiltration.
== END | disposition home or self-care (01) ==
LOC: RADCTMAIN 13:05
PROVIDERS: ATTEND Internal Medicine Hematology & Oncology
DX: K76.0 Fatty (change of) liver, not elsewhere classified (principal); C21.0 Malignant neoplasm of anus, unspecified
CPT/HCPCS: 82565; 84520; 71260; 74177; 36415; Q9967

== ENCOUNTER → 2019-03-23 | Outpatient (CLI) | payer OTHER ==
--- NOTE | 2019-03-24 12:27 | MR ---
EXAMINATION TYPE: MR pelvis wo/w con DATE OF EXAM: 03/23/2019 COMPARISON: CT chest abdomen pelvis dated 02/25/2019. HISTORY: Anal Cancer CONTRAST: Standard multiplanar, multisequence MRI departmental protocol of the low pelvis and evaluation for an al carcinoma utilizing 13 mL intravenous Gadavist gadolinium contrast. FINDINGS: Beginning approximately 1.9 cm from the anal verge there is annular and circumferential nodular mass with rectal wall thickening and resultant luminal narrowing. The rectum however is nondistended. The T2 hypointense muscularis propria is preserved at most locations however there is nodular contour wit h poor delineation of the T2 hyperintense peripheral muscularis propria on T2 axial image 15 of elias s 401 measuring 1.1 cm. This extends approximately 6 mm in craniocaudal dimension also seen on image 17. No extension into the mesorectal fat is seen. There does not appear to be invasion into the urina ry bladder. No local adenopathy is identified. The area of nodularity extends approximately 3.0 cm in length. As noted in the operative report the dentate line would be involved. The more proximal rectu m is nondistended and suboptimally evaluated with the appearance of mild wall thickening likely on th e basis of nondistention. The prostate gland appears surgically absent. Visualized osseous structures appear to maintain normal bone marrow signal. Limited images of the pelvis were performed. IMPRESSION: Biopsy-proven squamous cell anal carcinoma measuring approximately 3.0 cm in length of beginning appr oximately 1.9 cm from the anal verge, involving the dentate line and demonstrating a focal 1.1 x 0.6 cm area of invasion through the muscularis propria corresponding to a radiographic T2 N0 M0 neoplasm. No local suspicious adenopathy or invasion into the urinary bladder.
== END | disposition home or self-care (01) ==
LOC: RADMRIMAIN 16:40
PROVIDERS: ATTEND Internal Medicine Hematology & Oncology
DX: C21.0 Malignant neoplasm of anus, unspecified (principal)
CPT/HCPCS: 72197; A9585

== ENCOUNTER → 2019-04-06 | Day surgery (SDC) | payer OTHER ==
[2019-04-02 09:16] VITALS: BMI 34.5
[~2019-04-06] MED LIST changes: -LACTATED RINGERS 1,000 ML IV SCH; -LIDOCAINE 1% 20 ML VIAL (10MG/ML) FOR IV START INTRADERMA PRN; +LIDOCAINE 1% INJ 10MG/ML (20 ML MDV) ONE; +LIDOCAINE 1% INJ 10MG/ML (20 ML MDV) SQ ONE
[2019-04-06 10:21] VITALS: RESP 18; TEMP 97.9
[2019-04-06 11:58] LABS: Basophils # (A) 0.1 k/uL (0-0.2); Basophils % (A) 2 %; Eosinophils # (A) 0.3 k/uL (0-0.7); Eosinophils % (A) 4 %; HCT 39.8 % (39.0-53.0); HGB 13.1 gm/dL (13.0-17.5); Lymphocytes % (A) 28 %; MCH 30.9 pg (25.0-35.0); MCHC 32.9 g/dL (31.0-37.0); MCV 94.1 fL (80.0-100.0); Mean Platelet Volume 7.6; Monocytes # (A) 0.5 k/uL (0-1.0); Monocytes % (A) 7 %; Neutrophils # (A) 3.9 k/uL (1.3-7.7); Neutrophils % (A) 56 %; Platelet Count 268 k/uL (150-450); Potassium 4.5 mmol/L (3.5-5.1); RBC 4.23 m/uL (4.30-5.90); RDW 13.3 % (11.5-15.5); WBC 6.9 k/uL (3.8-10.6)
[2019-04-06 12:36] VITALS: BP 131/59; PULSE 78
--- NOTE | 2019-04-06 16:14 | IR ---
EXAMINATION TYPE: IR cvc insert >=5 years DATE OF EXAM: 04/06/2019 COMPARISON: NONE CLINICAL HISTORY: Anal carcinoma Needs long-term intravenous access for chemotherapy. PROCEDURE: After informed consent, the skin overlying the left basilic vein was localized with ultrasound and no maría to be compressible and patent. An ultrasound image was obtained and submitted on the patient's c romeo. The overlying skin was prepped and draped and Lidocaine was used for local anesthesia. A skin elba was made with a scalpel. Access was gained to the vein under ultrasound guidance with a 21 gau ge needle and a 0.018 inch wire was advanced. Access site was dilated with Peel-Away sheath and cath eter tailored to the appropriate length and advanced such that the distal tip is at the cavoatrial ju nction. Spot image was obtained verifying placement. Catheter was fixed to the skin with suture and a sterile dressing was placed following hemostasis. Catheter was aspirated and flushed with saline. Patient was discharged in stable condition without complication.Maximal barrier technique is utiliz ed. Ultrasound image is documented on the chart. Ultrasound used with sterile technique. Fluoro time and fluoroscopic images submitted to document procedure: 25 intraoperative images tanisha t the procedure, 0.1 minutes fluoroscopy time IMPRESSION: STATUS POST ULTRASOUND AND FLUOROSCOPIC GUIDED PICC LINE PLACEMENT, READY FOR USE. THIS PROCEDURE WAS PERFORMED BY THE UNDERSIGNED.
== END ==
LOC: CATHCVL 09:56
PROVIDERS: ATTEND Radiology Diagnostic Radiology
DX: C21.0 Malignant neoplasm of anus, unspecified (principal); I10 Essential (primary) hypertension; M10.9 Gout, unspecified; I87.2 Venous insufficiency (chronic) (peripheral); Z79.899 Other long term (current) drug therapy; Z98.890 Other specified postprocedural states; Z90.49 Acquired absence of other specified parts of digestive tract; Z90.79 Acquired absence of other genital organ(s); Z87.891 Personal history of nicotine dependence; Z80.42 Family history of malignant neoplasm of prostate; Z80.1 Family history of malignant neoplasm of trachea, bronchus and lung; Z86.19 Personal history of other infectious and parasitic diseases
CPT/HCPCS: 36573; 80051; 82565; 84520; 85025; C1751; C1769; J2001

== ENCOUNTER → 2019-11-27 | Day surgery (SDC) | payer OTHER ==
[2019-11-25 11:20] VITALS: BMI 34.5
[~2019-11-27] MED LIST changes: +LACTATED RINGERS 1,000 ML IV SCH; +LIDOCAINE 1% (10MG/ML) FOR IV START INTRADERMA PRN; -LIDOCAINE 1% INJ 10MG/ML (20 ML MDV) ONE; -LIDOCAINE 1% INJ 10MG/ML (20 ML MDV) SQ ONE; +PROPOFOL 10 MG/ML 20 ML VIAL IV ONE
[2019-11-27 09:03] VITALS: RESP 16; TEMP 98.1
--- NOTE | 2019-11-27 10:11 | P.PCN ---
Date of Procedure: 11/27/19 Procedure(s) Performed: BRIEF HISTORY: Patient is a 69-year-old pleasant male scheduled for an elective colonoscopy as a part of follow-up of history of anal cancer diagnosed in December 2018. He is status post chemoradiation therapy that ended in May 2019. PROCEDURE PERFORMED: Colonoscopy with biopsy. PREOPERATIVE DIAGNOSIS: History of anal cancer diagnosed in December 2018. IV sedation per Anesthesia. PROCEDURE: After informed consent was obtained, the patient, was brought into the endoscopy unit. IV sedation was administered by Anesthesia under continuous monitoring. Digital rectal examination was normal. Initially the Olympus CF-160 flexible video colonoscope was then inserted in the rectum, gradually advanced into the cecum without any difficulty. Careful examination was performed as the scope was gradually being withdrawn. Ileocecal valve and the appendiceal orifice were visualized and appeared normal. Prep was excellent. Mucosa of the cecum, ascending colon, appeared normal. In the past millimeters polyp that was removed by cold biopsy. Rest of the transverse colon, descending colon, sigmoid colon appeared normal. In the distal rectum there were multiple telangiectasia consistent with radiation proctitis. No bleeding noted. Retroflexion was performed in the rectum and no lesions were seen. The patient tolerated the procedure well. IMPRESSION: 3 mm transverse colon polyp status post cold biopsy Moderate to severe radiation therapy. RECOMMENDATIONS: Findings of this examination were discussed with the patient as well as his family. He was advised to follow with the biopsy results. He can have a repeat colonoscopy in 3 years as a part of surveillance of anal cancer..
[2019-11-27 10:37] VITALS: BP 115/71; PULSE 72
== END ==
LOC: ORWHC2ENDO 08:06
PROVIDERS: ATTEND Internal Medicine Gastroenterology
DX: Z12.11 Encounter for screening for malignant neoplasm of colon (principal); D12.3 Benign neoplasm of transverse colon; K62.7 Radiation proctitis; I10 Essential (primary) hypertension; M10.9 Gout, unspecified; F41.9 Anxiety disorder, unspecified; K21.9 Gastro-esophageal reflux disease without esophagitis; Z85.048 Personal history of other malignant neoplasm of rectum, rectosigmoid junction, and anus; Z92.21 Personal history of antineoplastic chemotherapy; Z92.3 Personal history of irradiation; Z79.899 Other long term (current) drug therapy; Z79.890 Hormone replacement therapy; Z97.2 Presence of dental prosthetic device (complete) (partial); Z85.820 Personal history of malignant melanoma of skin; Z85.46 Personal history of malignant neoplasm of prostate; Z87.11 Personal history of peptic ulcer disease
CPT/HCPCS: 88305; 45380; J2704

== ENCOUNTER → 2020-06-20 | Outpatient (CLI) | payer OTHER ==
--- NOTE | 2020-06-20 12:51 | CT ---
EXAMINATION TYPE: CT ChestAbdPelvis w con DATE OF EXAM: 06/20/2020 COMPARISON: 02/25/2019 HISTORY: Anal cancer, observation for mets CT DLP: 2979.3 mGycm Automated exposure control for dose reduction was used. CONTRAST: CT scan of the chest, abdomen and pelvis is performed with Oral Contrast and with IV Contrast, patien t injected with 80 mL of Isovue 300. FINDINGS: LUNGS: The lungs are grossly clear, there is stable 3 mm nodule left lower lobe axial image 46. The re is no pleural effusion or pneumothorax seen. The tracheobronchial tree is patent. MEDIASTINUM: There are no greater than 1 cm hilar or mediastinal lymph nodes. No pericardial effusi on is seen. Coronary artery calcification noted. OTHER: No additional significant abnormality is seen. LIVER/GB: Reduced attenuation liver is compatible with fatty infiltration. Tiny gallstones not exclud ed. PANCREAS: No significant abnormality is seen. SPLEEN: No significant abnormality is seen. ADRENALS: No significant abnormality is seen. KIDNEYS: Punctate 1 mm lower pole right renal calculus with no hydronephrosis. BOWEL: Changes of mild diverticulosis. Mild thickening of the wall the sigmoid colon without evidenc e of significant inflammatory changes. LYMPH NODES: No greater than 1 cm abdominal or pelvic lymph nodes are appreciated. OSSEOUS STRUCTURES: Hypertrophic and degenerative changes of the spine.. OTHER: Aorta of normal caliber. No sizable free fluid. IMPRESSION: 1. Nonspecific mild wall thickening to the sigmoid colon correlate clinically and with direct visuali zation as clinically warranted. 2. No pathologic adenopathy. Stable 3 mm left lower lobe pulmonary nodule axial image 6 2 small to ch aracterize. 3. Fatty infiltration of the liver 4. Cholelithiasis 5. Nonobstructing punctate 1 mm right renal calculus.
== END | disposition home or self-care (01) ==
LOC: RADCTMAIN 10:24
PROVIDERS: ATTEND Internal Medicine Hematology & Oncology
DX: N20.0 Calculus of kidney (principal); K80.20 Calculus of gallbladder without cholecystitis without obstruction; K76.0 Fatty (change of) liver, not elsewhere classified
CPT/HCPCS: 82565; 84520; 71260; 74177; 36415; Q9967

== ENCOUNTER 2020-08-12 10:49 | Day surgery (SDC) | payer OTHER ==
[2020-08-09 15:45] VITALS: BMI 35.2
[~2020-08-12 10:49] MED LIST changes: -PROPOFOL 10 MG/ML 20 ML VIAL IV ONE
[2020-08-12 11:17] VITALS: TEMP 97.5
[2020-08-12] MEDS ORDERED: MIDAZOLAM 2 MG/2 ML VIAL ONE (11:53)
[2020-08-12] MEDS ORDERED: PROPOFOL 10 MG/ML 20 ML VIAL IV ONE (11:53)
--- NOTE | 2020-08-12 12:09 | P.PCN ---
Date of Procedure: 08/12/20 Procedure(s) Performed: BRIEF HISTORY: Patient is a 69-year-old pleasant white male scheduled for an elective colonoscopy as a part of follow-up of anal cancer diagnosed in 2019. He is in clinical remission. PROCEDURE PERFORMED: Colonoscopy. PREOPERATIVE DIAGNOSIS: Follow-up in the cancer diagnosed in 2019. IV sedation per Anesthesia. PROCEDURE: After informed consent was obtained, the patient, was brought into the endoscopy unit. IV sedation was administered by Anesthesia under continuous monitoring. Digital rectal examination was normal. Initially the Olympus CF-160 flexible video colonoscope was then inserted in the rectum, gradually advanced into the cecum without any difficulty. Careful examination was performed as the scope was gradually being withdrawn. Ileocecal valve and the appendiceal orifice were visualized and appeared normal. Prep was excellent. Mucosa of the cecum, ascending colon, transverse colon, descending colon, sigmoid colon, and rectum appeared normal. There were scattered telangiectasia noted in the distal rectum consistent with very mild radiation proctitis. Moderate sigmoid diverticulosis seen. Retroflexion was performed in the rectum and small internal hemorrhoids were seen. The patient tolerated the procedure well. IMPRESSION: Normal-appearing colon from rectum to cecum with no evidence of colorectal neoplasia. 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 He was advised to have a repeat colonoscopy in 3 years..
[2020-08-12 12:31] VITALS: RESP 20
[2020-08-12 12:38] VITALS: BP 111/71; PULSE 84
== END 2020-08-12 13:00 | disposition home or self-care (01) ==
LOC: ORWHC2ENDO 10:49
PROVIDERS: ATTEND Internal Medicine Gastroenterology
DX: Z12.11 Encounter for screening for malignant neoplasm of colon (principal); Z85.048 Personal history of other malignant neoplasm of rectum, rectosigmoid junction, and anus; K62.7 Radiation proctitis; K64.8 Other hemorrhoids; K57.90 Diverticulosis of intestine, part unspecified, without perforation or abscess without bleeding; I10 Essential (primary) hypertension; E07.9 Disorder of thyroid, unspecified; Z79.899 Other long term (current) drug therapy
CPT/HCPCS: J2250; J2704; G0105; 45378

== ENCOUNTER 2020-09-08 17:46 | Emergency (ER) | payer OTHER ==
[2020-09-08 18:04] VITALS: RESP 18
[2020-09-08] MEDS ORDERED: MORPHINE SULFATE 4 MG/ML SYRINGE IV STA (18:31)
[2020-09-08] MEDS ORDERED: SODIUM CHLORIDE 0.9% 500 ML 500 ML IV STA (18:31)
[2020-09-08] MEDS ORDERED: KETOROLAC 15 MG/ML 1 ML VIAL IVP STA (18:31)
[2020-09-08] MEDS ORDERED: ONDANSETRON 4 MG/2 ML VIAL IVP STA (18:31)
[2020-09-08] MEDS ORDERED: SODIUM CHLORIDE 0.9% 1,000 ML IV STA (18:31)
[2020-09-08 18:58] LABS: Basophils % (A) 0 %; Eosinophils % (A) 0 %; HCT 36.4 % (39.0-53.0); HGB 12.6 gm/dL (13.0-17.5); Lymphocytes # (A) 0.5 k/uL (1.0-4.8); Lymphocytes % (A) 6 %; MCH 32.1 pg (25.0-35.0); MCHC 34.5 g/dL (31.0-37.0); MCV 92.9 fL (80.0-100.0); Mean Platelet Volume 7.2; Monocytes # (A) 0.6 k/uL (0-1.0); Monocytes % (A) 7 %; Neutrophils # (A) 7.4 k/uL (1.3-7.7); Neutrophils % (A) 86 %; Platelet Count 268 k/uL (150-450); RBC 3.92 m/uL (4.30-5.90); RDW 13.6 % (11.5-15.5); WBC 8.6 k/uL (3.8-10.6)
[2020-09-08 19:06] LABS: Albumin 4.4 g/dL (3.5-5.0); Calcium 9.5 mg/dL (8.4-10.2); Potassium 4.1 mmol/L (3.5-5.1); Total Bilirubin 0.2 mg/dL (0.2-1.3); Total Protein 7.2 g/dL (6.3-8.2)
--- NOTE | 2020-09-08 19:52 | ED ---
Abdominal Pain HPI - General Chief Complaint: Abdominal Pain Stated Complaint: Abd pain Time Seen by Provider: 09/08/20 18:25 Source: patient Mode of arrival: ambulatory Limitations: no limitations - History of Present Illness Initial Comments: This 69-year-old male presents with a complaint of right flank pain. This started at approximately 4:30 AM this morning. He describes as a sharp and severe type of pain. He denies any previous similar incidents. He denies any urinary frequency, urgency or dysuria or hematuria. He denies any fevers or chi lls. He was nauseated and vomited twice today. He denies any diarrhea or constipation. He denies any history of kidney stones in the past. He is requesting something for pain as he states that the pain is fairly severe. No other complaints or modifying factors. No anterior abdominal tenderness. - Related Data Home Medications Medication Instructions Recorded Confirmed Allopurinol 100 mg PO QAM 06/21/16 08/12/20 Omeprazole [PriLOSEC] 20 mg PO QAM 06/21/16 08/12/20 amLODIPine BESYLATE [Amlodipine 5 mg PO QAM 06/21/16 08/12/20 Besylate] Lisinopril-Hctz 20-25 mg 1 tab PO QAM 01/09/19 08/12/20 [Zestoretic 20-25] PARoxetine [Paxil] 10 mg PO QAM 01/09/19 08/12/20 Levothyroxine Sodium [Synthroid] 25 mcg PO DAILY 11/25/19 08/12/20 Previous Rx's Medication Instructions Recorded HYDROcodone/APAP 5-325MG [[place] 5] 1 - 2 each PO Q6HR PRN #15 tab 09/08/20 Ondansetron Odt [Zofran ODT] 8 mg PO Q8HR PRN #10 tab 09/08/20 Tamsulosin [Flomax] 0.4 mg PO DAILY #15 cap 09/08/20 Allergies Allergy/AdvReac Type Severity Reaction Status Date / Time No Known Allergies Allergy Verified 08/12/20 11:18 Review of Systems ROS Statement: Those systems with pertinent positive or pertinent negative responses have been documented in the HPI. ROS Other: All systems not noted in ROS Statement are negative. Past Medical History Past Medical History: Cancer, GERD/Reflux, Hypertension, Thyroid Disorder Additional Past Medical History / Comment(s): HX DUODENAL ULCER, PROSTATE CANCER (SURGERY), MELANOMA ., GOUT, INFECTION AFTER WRIST SURGERY AND HARDWARE REMOVED AND CAST WAS APPLIED. 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 History of Any Multi-Drug Resistant Organisms: None Reported Past Surgical History: Appendectomy, Orthopedic Surgery, Prostate Surgery, Tonsillectomy Additional Past Surgical History / Comment(s): COLONOSCOPY, EGD , RIGHT ROTATER CUFF, FX RIGHT WRIST SURGERY, rt cataract surgery. Past Anesthesia/Blood Transfusion Reactions: No Reported Reaction Past Psychological History: Anxiety Smoking Status: Former smoker Past Alcohol Use History: None Reported Past Drug Use History: None Reported - Past Family History Father Family Medical History: Cancer Additional Family Medical History / Comment(s): Prostate cancer Mother Family Medical History: Cancer Additional Family Medical History / Comment(s): Lung Brother(s) Family Medical History: Cancer Additional Family Medical History / Comment(s): Prostate General Exam - General Exam Comments Initial Comments: GENERAL: The patient is well nourished and well hydrated. VITAL SIGNS: Heart rate, blood pressure, respiratory rate reviewed as recorded in nurse's notes. EYES: Pupils are round and reactive. Extraocular movements are intact. No conjunctival / lid redness or swelling. ENT: No external evidence of injury, swelling, or ecchymosis. Airway is patent. Throat is clear. NECK: Nontender. No swelling or evidence of injury. No subcutaneous emphysema. Trachea is midline. No thyroid mass. HEART: Regular rate and rhythm. Good peripheral pulses. LUNGS/CHEST: Breath sounds clear and equal bilaterally. No rales, rhonchi, or wheezes. No ecchymosis, subcutaneous emphysema, or tenderness. ABDOMEN: Tenderness noted to the right flank. No palpable masses or organomegaly. No peritoneal signs. No abdominal wall swelling or ecchymosis. EXTREMITIES: No extremity tenderness. Normal muscle tone and function. No thoracolumbar tenderness. NEUROLOGIC: Sensation is grossly intact. Cranial nerve exam reveals face is symmetrical, tongue is midline, speech is clear. SKIN: No abrasions or ecchymosis is noted. No induration or masses noted. PSYCHIATRIC: Alert and oriented. Appropriate behavior and judgment. Limitations: no limitations Course Vital Signs 09/08/20 18:01 Temperature 97.8 F Pulse Rate 88 Respiratory 18 Rate Blood Pressure 141/74 O2 Sat by Pulse 97 Oximetry Medical Decision Making - Medical Decision Making The patient was seen and examined. All diagnostics are reviewed. Laboratory shows a slight anemia. The patient also received an IV with IV fluids and formula because of morphine intravenously and 4 mg of Zofran intravenously and 30 mg of Toradol intravenously. On recheck, he is feeling remarkably improved. The laboratory overall is fairly unremarkable with a mild anemia. The urinalysis does not show any evidence of infection. The computed tomography scan of the abdomen and pelvis does show 2 stones in the right kidney but no definitive ureteral stones. Upon my evaluation of the films, there is potentially a small stone noted at the ureteral vesicular junction. There is no identifiable hydronephrosis. His symptoms certainly would be consistent with a ureteral stone. It is felt as though he stable for discharge. Return parameters are discussed. Urology referral information is given. - Lab Data Result diagrams: 09/08/20 18:54 09/08/20 18:54 Lab Results 09/08/20 09/08/20 09/08/20 Range/Units 18:54 18:54 19:55 WBC 8.6 (3.8-10.6) k/uL RBC 3.92 L (4.30-5.90) m/uL Hgb 12.6 L (13.0-17.5) gm/dL Hct 36.4 L (39.0-53.0) % MCV 92.9 (80.0-100.0) fL MCH 32.1 (25.0-35.0) pg MCHC 34.5 (31.0-37.0) g/dL RDW 13.6 (11.5-15.5) % Plt Count 268 (150-450) k/uL MPV 7.2 Neutrophils % 86 % Lymphocytes % 6 % Monocytes % 7 % Eosinophils % 0 % Basophils % 0 % Neutrophils # 7.4 (1.3-7.7) k/uL Lymphocytes # 0.5 L (1.0-4.8) k/uL Monocytes # 0.6 (0-1.0) k/uL Eosinophils # 0.0 (0-0.7) k/uL Basophils # 0.0 (0-0.2) k/uL Sodium 137 (137-145) mmol/L Potassium 4.1 (3.5-5.1) mmol/L Chloride 101 (98-107) mmol/L Carbon Dioxide 27 (22-30) mmol/L Anion Gap 9 mmol/L BUN 27 H (9-20) mg/dL Creatinine 1.07 (0.66-1.25) mg/dL Est GFR (CKD-EPI)AfAm 81 (>60 ml/min/1.73 sqM) Est GFR (CKD-EPI)NonAf 70 (>60 ml/min/1.73 sqM) Glucose 129 H (74-99) mg/dL Calcium 9.5 (8.4-10.2) mg/dL Total Bilirubin 0.2 (0.2-1.3) mg/dL AST 36 (17-59) U/L ALT 38 (4-49) U/L Alkaline Phosphatase 84 (38-126) U/L Total Protein 7.2 (6.3-8.2) g/dL Albumin 4.4 (3.5-5.0) g/dL Lipase 93 (23-300) U/L Urine Color Yellow Urine Appearance Clear (Clear) Urine pH 5.0 (5.0-8.0) Ur Specific [place] 1.021 (1.001-1.035) Urine Protein Trace H (Negative) Urine Glucose (UA) Negative (Negative) Urine Ketones Negative (Negative) Urine Blood Negative (Negative) Urine Nitrite Negative (Negative) Urine Bilirubin Negative (Negative) Urine Urobilinogen <2.0 (<2.0) mg/dL Ur Leukocyte Esterase Negative (Negative) Disposition Clinical Impression: Flank pain, Nausea and vomiting, Kidney stone on right side, Anemia Disposition: ADMITTED IP TO THIS [facility] Condition: Good Instructions (If sedation given, give patient instructions): Flank Pain (ED), Kidney Stones (ED) Prescriptions: Tamsulosin [Flomax] 0.4 mg PO DAILY #15 cap HYDROcodone/APAP 5-325MG [[place] 5] 1 - 2 each PO Q6HR PRN #15 tab PRN Reason: Pain Ondansetron Odt [Zofran ODT] 8 mg PO Q8HR PRN #10 tab PRN Reason: Nausea And Vomiting Is patient prescribed a controlled substance at d/c from ED?: Yes When asked, does pt state using other controlled substances?: No If prescribed controlled substance>3 days was MAPS reviewed?: Prescribed <3 Days Referrals: [facility],Clinic [Primary Care Provider] - 1-2 days Time of Disposition: 20:32
--- NOTE | 2020-09-08 19:57 | CT ---
EXAMINATION TYPE: CT abdomen pelvis wo con DATE OF EXAM: 09/08/2020 COMPARISON: 06/20/2020 CT HISTORY: right flank pain CT DLP: 1580.4 mGycm Automated exposure control for dose reduction was used. TECHNIQUE: Helical acquisition of images was performed from the lung bases through the pelvis. FINDINGS: Within the study limitations of noncontrast CT, the following observations are made. LUNG BASES: No acute findings, but left coronary calcifications noted. LIVER/GB: No significant abnormality is appreciated. PANCREAS: No significant abnormality is seen. SPLEEN: No significant abnormality is seen. ADRENALS: No significant abnormality is seen. KIDNEYS AND URETERS: No hydronephrosis. No hydroureter. No calcifications within the ureters. There i s a nonobstructing 1 mm calcification in the upper pole right kidney and a 3 mm nonobstructing calcif ication lower pole right kidney. No calcifications in the left kidney. URINARY BLADDER: No significant abnormality is seen. No calcifications. FREE AIR: No free air is visualized RETROPERITONEAL ADENOPATHY: None visualized REPRODUCTIVE ORGANS: No significant abnormality is seen PELVIC ADENOPATHY: None visualized. OSSEOUS STRUCTURES: No significant abnormality is seen. BOWEL: No significant abnormality is seen. 2.5 cm diameter posterior duodenal diverticulum at the ju nction of the second and third portion of the duodenum is redemonstrated. IMPRESSION: NO ACUTE PROCESS.
[2020-09-08 20:06] LABS: Appearance,Urine Clear (Clear); Bilirubin,Urine Negative (Negative); Blood,Urine Negative (Negative); Color,Urine Yellow; Glucose,Urine (UA) Negative (Negative); Ketones,Urine Negative (Negative); Leukocyte Esterase,Urine Negative (Negative); Nitrite,Urine Negative (Negative); Protein,Urine Trace (Negative); Specific Gravity,Urine 1.021 (1.001-1.035); Urobilinogen,Urine <2.0 mg/dL (<2.0)
[2020-09-08 20:43] VITALS: BP 109/59; PULSE 78; TEMP 98.1
== END 2020-09-08 20:51 | disposition other institution (70) ==
LOC: EC 17:46
DX: N20.0 Calculus of kidney (principal); D64.9 Anemia, unspecified; I10 Essential (primary) hypertension; K21.9 Gastro-esophageal reflux disease without esophagitis; M10.9 Gout, unspecified; E07.9 Disorder of thyroid, unspecified; Z85.46 Personal history of malignant neoplasm of prostate; Z85.820 Personal history of malignant melanoma of skin; Z87.891 Personal history of nicotine dependence
CPT/HCPCS: 36415; 80053; 83690; 85025; 81003; 74176; 99284; 96374; 96375 ×2; 96361 ×2; J2270; J2405; J1885

== ENCOUNTER 2021-02-15 10:01 | Day surgery (SDC) | payer OTHER ==
[2021-02-10 11:26] VITALS: BMI 33.9
[~2021-02-15 10:01] MED LIST changes: -LIDOCAINE 1% (10MG/ML) FOR IV START INTRADERMA PRN
[2021-02-15 10:47] VITALS: TEMP 97.2
[2021-02-15] MEDS ORDERED: LIDOCAINE 1% (10MG/ML) FOR IV START INTRADERMA ONE (10:47)
[2021-02-15] MEDS ORDERED: PROPOFOL 10 MG/ML 20 ML VIAL IV ONE (11:15)
[2021-02-15] MEDS ORDERED: LIDOCAINE 1% INJ 10MG/ML (20 ML MDV) ONE (11:15)
--- NOTE | 2021-02-15 11:30 | P.PCN ---
Date of Procedure: 02/15/21 Procedure(s) Performed: BRIEF HISTORY: Patient is a 70-year-old pleasant white male scheduled for an elective colonoscopy as a part of follow-up of anal cancer that was diagnosed in 2018. Last colonoscopy was a year ago and was within normal limits. PROCEDURE PERFORMED: Colonoscopy with biopsy With biopsy PREOPERATIVE DIAGNOSIS: Follow-up anal cancer diagnosed in 2069. IV sedation per Anesthesia. PROCEDURE: After informed consent was obtained, the patient, was brought into the endoscopy unit. IV sedation was administered by Anesthesia under continuous monitoring. Digital rectal examination was normal. Initially the Olympus CF-160 flexible video colonoscope was then inserted in the rectum, gradually advanced into the cecum without any difficulty. Careful examination was performed as the scope was gradually being withdrawn. Ileocecal valve and the appendiceal orifice were visualized and appeared normal. Prep was excellent. Mucosa of the cecum,appeared normal. In the ascending colon there was a 5 mm polyp that was removed by cold biopsy. Rest of the ascending colon, transverse colon, descending colon, sigmoid colon, and rectum appeared normal. In the distal rectum there were several scattered telangiectasia consistent with mild radiation proctitis. Retroflexion was performed in the rectum andsmall internal hemorrhoids were seen. were seen. The patient tolerated the procedure well. IMPRESSION: 5 mm ascending colon polyp status post removal by cold biopsy Mild radiation proctitis Small internal hemorrhoids RECOMMENDATIONS: Findings of this examination were discussed with the patient as well as his family. he was advised to follow with the biopsy results and martinez ve a repeat Surveillance colonoscopy in 3 years from now..
[2021-02-15 11:53] VITALS: BP 106/68; PULSE 69; RESP 20
== END 2021-02-15 12:20 | disposition home or self-care (01) ==
LOC: ORWHC2ENDO 10:01
PROVIDERS: ATTEND Internal Medicine Gastroenterology
DX: Z08 Encounter for follow-up examination after completed treatment for malignant neoplasm (principal); K62.7 Radiation proctitis; K64.8 Other hemorrhoids; D12.2 Benign neoplasm of ascending colon; I10 Essential (primary) hypertension; E07.9 Disorder of thyroid, unspecified; Z85.46 Personal history of malignant neoplasm of prostate; Z79.899 Other long term (current) drug therapy
CPT/HCPCS: 88305; 45380; J2001; J2704

== ENCOUNTER → 2021-06-12 | Outpatient (CLI) | payer OTHER ==
--- NOTE | 2021-06-12 20:07 | CT ---
EXAMINATION TYPE: CT ChestAbdPelvis w con DATE OF EXAM: 06/12/2021 COMPARISON: CT dated 06/20/2020 and 09/08/2020 HISTORY: f/u ca CT DLP: 2590.8 mGycm Automated exposure control for dose reduction was used. CONTRAST: CT scan of the chest, abdomen and pelvis is performed with Oral Contrast and with IV Contrast, patien t injected with 80cc mL of Isovue 300. FINDINGS: LUNGS: Slightly more prominent left lung base nodule measuring 4.8 mm compared to 3.7 mm previously, attention on follow-up. Stable right posterior lower lobe subpleural reticulations. No new suspicious or progressive lung lesion otherwise. Patent central airways. No pleural effusion. MEDIASTINUM: No pathologically enlarged lymph nodes in the chest. No pericardial effusion. Unchanged cardiac size and arterial atherosclerotic calcifications. OTHER: No aggressive bone lesion. LIVER/GB: Hepatic steatosis. With this limitation, no definite hepatic focal lesion identified. Depen dent tiny calculi versus thick sludge seen at the gallbladder neck. No evidence of acute cholecystiti s. PANCREAS: No significant abnormality is seen. SPLEEN: No significant abnormality is seen. ADRENALS: No significant abnormality is seen. KIDNEYS: No significant abnormality is seen. BOWEL: Mild thickening of the gastric fundus and its greater curvature as well as the gastroduodenal junction, nonspecific. Unremarkable stomach otherwise. Second part of the duodenum diverticulum. Unr emarkable small bowel. Mesorectal fascial thickening and perirectal adhesions. Scattered uncomplicate d colonic diverticulosis. No gross colonic mass however a small lesion cannot be excluded. REPRODUCTIVE ORGANS: Nonvisualized prostate. Nondistended the urinary bladder. LYMPH NODES: No greater than 1 cm abdominal or pelvic lymph nodes are appreciated. OSSEOUS STRUCTURES: No aggressive bone lesion. OTHER: No sizable ascites. IMPRESSION: 1. Slightly more prominent left basal lung nodule as described above, recommend precautionary follow- up CT scan of the chest in 3 months for reassessment. 2. Otherwise no evidence of metastatic disease seen in the chest, abdomen or the pelvis. Incidental f indings as described above.
== END | disposition home or self-care (01) ==
LOC: RADCTMAIN 13:02
PROVIDERS: ATTEND Internal Medicine Hematology & Oncology
DX: C21.0 Malignant neoplasm of anus, unspecified (principal); R91.1 Solitary pulmonary nodule
CPT/HCPCS: 82565; 84520; 71260; 74177; 36415; Q9967

== ENCOUNTER → 2021-12-13 | Outpatient (CLI) | payer OTHER ==
--- NOTE | 2021-12-13 10:04 | CT ---
EXAMINATION TYPE: CT chest wo con DATE OF EXAM: 12/13/2021 COMPARISON: 06/12/2021 HISTORY: Lung nodule CT DLP: 693 mGycm, Automated exposure control for dose reduction was used. CONTRAST: Performed injected with 0 mL of Isovue 300. TECHNIQUE: Axial images were obtained at 5 mm thick sections. Reconstructed images are reviewed on olook computer in the coronal plane. FINDINGS: Portion of the thyroid visualized is normal. There is a punctate nodule in the posterior right lung base. Series 4 image 38. This appears to prese nt previously. There is a 0.4 cm stable nodule within the left lateral lung base. Series 4 image 44. No enlarged mediastinal or hilar adenopathy is evident. The ascending aorta diameter at the level o f the main pulmonary artery is 3.5 cm. The main pulmonary artery diameter at the bifurcation is 3.5 cm. While coronary artery calcification is present. Limited CT sections are obtained through the upper abdomen. Abdomen is essentially unremarkable. IMPRESSIONS: 1. Small stable bilateral lung nodules discussed above. Follow-up examination in 6 months is recommen ded.
== END | disposition home or self-care (01) ==
LOC: RADCTMAIN 09:21
PROVIDERS: ATTEND Internal Medicine Hematology & Oncology
DX: R91.8 Other nonspecific abnormal finding of lung field (principal)
CPT/HCPCS: 71250

== ENCOUNTER 2022-03-02 11:12 | Day surgery (SDC) | payer OTHER ==
[2022-03-01 11:47] VITALS: BMI 34.5
[2022-03-02] MEDS ORDERED: LACTATED RINGERS 1,000 ML IV SCH (11:26)
[2022-03-02 11:30] VITALS: TEMP 97.9
[2022-03-02] MEDS ORDERED: LIDOCAINE 2% INJ 20 MG/ML (2 ML VIAL) ONE (12:29)
[2022-03-02] MEDS ORDERED: PROPOFOL 10 MG/ML 20 ML VIAL IV ONE (12:29)
--- NOTE | 2022-03-02 12:42 | P.PCN ---
Date of Procedure: 03/02/22 Procedure(s) Performed: BRIEF HISTORY: Patient is a 71-year-old pleasant white male scheduled for an elective colonoscopy as a part of surveillance of anorectal cancer diagnosed in 2019. Status post radiation therapy and is in clinical remission. He scheduled for a flexible sigmoidoscopy as a part of surveillance today. 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 IV sedation per Anesthesia. PROCEDURE: After informed consent was obtained, the patient, was brought into the endoscopy unit. IV sedation was administered by Anesthesia under continuous monitoring. Digital rectal examination was normal. Initially the Olympus CF-160 flexible video colonoscope was then inserted in the rectum, gradually advanced into the splenic flexure without any difficulty. Careful examination was pe rformed as the scope was gradually being withdrthe cause of the descending colon, sigmoid colon, and rectum appeared normal. in the mid rectum there was a small polypoid-like area noted which was biopsied. It was not clear whether this was a thickened rectal fold versus a polyp. Scattered sigmoid diverticula seen. Retroflexion was performed in the rectummild radiation proctitis and small internal hemorrhoids were seen. The patient tolerated the procedure well. IMPRESSION: Mild radiation proctitis and small internal hemorrhoids Scattered sigmoid diverticulosis 5 mm and 7 mm rectal polyp thickened rectal fold status post biopsy . RECOMMENDATIONS: Findings of this examination were discussed with the patient as well as a family. He was advised to follow with the biopsy results and will plan a repeat surveillance sigmoidoscopy in 6 months
[2022-03-02 12:51] VITALS: RESP 16
[2022-03-02 13:03] VITALS: BP 116/58; PULSE 83
== END 2022-03-02 13:59 | disposition home or self-care (01) ==
LOC: ORWHC2ENDO 11:12
PROVIDERS: ATTEND Internal Medicine Gastroenterology
DX: C21.8 Malignant neoplasm of overlapping sites of rectum, anus and anal canal (principal); K62.89 Other specified diseases of anus and rectum; K57.30 Diverticulosis of large intestine without perforation or abscess without bleeding; K64.8 Other hemorrhoids; Y84.2 Radiological procedure and radiotherapy as the cause of abnormal reaction of the patient, or of later complication, without mention of misadventure at the time of the procedure; Z98.890 Other specified postprocedural states; Z92.3 Personal history of irradiation; K21.9 Gastro-esophageal reflux disease without esophagitis; E03.9 Hypothyroidism, unspecified; Z79.890 Hormone replacement therapy; Z79.01 Long term (current) use of anticoagulants; Z79.83 Long term (current) use of bisphosphonates
CPT/HCPCS: 45331; 88305; J2704; J2001; 45380

== ENCOUNTER → 2022-07-17 | Outpatient (CLI) | payer OTHER ==
--- NOTE | 2022-07-17 22:01 | CT ---
EXAMINATION TYPE: CT ChestAbdPelvis w con DATE OF EXAM: 07/17/2022 COMPARISON: Most recent whole body CT June 12, 2021 and older studies. HISTORY: obs for mets. hx of rectal ca CT DLP: 2802.0 mGycm. Automated Exposure Control for Dose Reduction was Utilized. CONTRAST: CT scan of the thorax, abdomen and pelvis is performed with oral and with IV Contrast, patient inject ed with 100 mL of Isovue 300. FINDINGS: LUNGS: The lungs are grossly clear, there is no concerning new greater than 5 mm parenchymal mass or nodule identified. Stable 4 mm peripheral left lower lobe nodule axial image 47. There is no pleural effusion or pneumothorax seen. The tracheobronchial tree is patent. MEDIASTINUM: There are no greater than 1 cm hilar or mediastinal lymph nodes. No cardiomegaly or pe ricardial effusion is seen. Coronary artery calcification is redemonstrated. LIVER/GB: Tiny dependent gallstones in the gallbladder. Diffuse fatty infiltration of liver redemonst rated. PANCREAS: No significant abnormality is seen. SPLEEN: No significant abnormality is seen. ADRENALS: No significant abnormality is seen. KIDNEYS: Incidental 2 left renal arteries are noted. BOWEL: Contrast reaches level of splenic flexure. No suspicious small or large bowel dilatation. GENITAL ORGANS: Prostate gland is not seen and suspected surgically absent. LYMPH NODES: No new greater than 1cm abdominal or pelvic lymph nodes are appreciated. OSSEOUS STRUCTURES: No significant abnormality is seen. OTHER: No significant additional abnormality is seen. IMPRESSION: No suspicious nor enlarging mass or adenopathy to suggest active neoplastic recurrence.
== END | disposition home or self-care (01) ==
LOC: RADCTMAIN 14:26
PROVIDERS: ATTEND Internal Medicine Hematology & Oncology
DX: Z03.89 Encounter for observation for other suspected diseases and conditions ruled out (principal); C21.0 Malignant neoplasm of anus, unspecified
CPT/HCPCS: 82565; 84520; 71260; 74177; 36415; Q9967

== ENCOUNTER 2022-09-12 18:54 | Observation (INO) | payer MEDICARE, OTHER ==
--- NOTE | 2022-09-12 20:11 | CT ---
EXAMINATION TYPE: CT brain petar burciaga DATE OF EXAM: 09/12/2022 COMPARISON: HISTORY: pain after fall CT DLP: 1768.[address] of the brain was performed. The ventricles, basal cisterns and sulci overlying the cerebral convexities demonstrate enlargement. There is no evidence for intracranial hemorrhage or sulcal effacement. There is decreased attenuatio n about the periventricular white matter and deep white matter of both cerebral hemispheres, compatib le with chronic small vessel ischemia. No mass effects are seen. If symptoms persist consider MRI. Osseous calvarium is intact. Moderate to large left frontal scalp hematoma. IMPRESSION: 1. Age related atrophic and chronic small vessel ischemic change without acute intracranial process seen at this time. CT Cervical Spine: Unenhanced CT of the cervical spine was performed with bone and soft tissue window settings submitted . Coronal and sagittal reconstruction is obtained. There is a lytic lesion involving the right articular pillar of C2 as well as the right articular pil lar of C3 seen best on image 44 sequence 303, image 61 through 63 sequence 304 and axial images 47 th rough 54. While these could reflect subarticular cysts underlying lesions are not excluded. Image 49 of 109 sequence 301 demonstrates cortical discontinuity pathologic fracture is not excluded. No addit ional fractures are felt to be present. Alignment is anatomic. Moderate degenerative disc space narro wing C4-C6. IMPRESSION: 1. 2 lytic lesions involving the right articular pillars of C2 and C3 as discussed above. While these could reflect subarticular degenerative cysts underlying metastatic disease is not excluded. As note d above there is a suggestion of cortical discontinuity image 49 sequence 301 and pathologic fracture is not excluded. No additional fracture seen.
--- NOTE | 2022-09-12 21:06 | XR ---
EXAMINATION TYPE: XR chest 2V DATE OF EXAM: 09/12/2022 COMPARISON: 06/21/2016 HISTORY: Shortness of breath TECHNIQUE: Frontal and lateral views of the chest are obtained. FINDINGS: Scattered senescent parenchymal changes noted. Hyperinflation compatible with COPD. No evidence for infiltrate. No evidence for atelectasis. Heart size is stable. Mediastinal structures are stable and grossly unremarkable. No evidence for hilar prominence. Degenerative changes dorsal spine. IMPRESSION: 1. No evidence for acute pulmonary disease.
--- NOTE | 2022-09-12 21:24 | ED ---
Fall HPI - General Chief Complaint: Fall Stated Complaint: Fall, Head Injury Time Seen by Provider: 09/12/22 19:06 Source: patient, EMS Mode of arrival: EMS - History of Present Illness Initial Comments: 71-year-old male presenting for evaluation post fall. Patient had a trip and fall in his bathroom and hit his head on the floor. There is a large hematoma to the left side of the forehead. Patient is not on any blood thinners, no loss of consciousness. Patient has some discomfort in the left thoracic area with certain movements. No neck pain, nausea, vomiting, dizziness, abdominal pain, numbness, tingling, weakness, vision or hearing changes. He is wearing a collar that was placed by EMS. - Related Data Home Medications Medication Instructions Recorded Confirmed Omeprazole [PriLOSEC] 20 mg PO QAM 06/21/16 03/01/22 allopurinoL [Allopurinol] 100 mg PO QAM 06/21/16 03/01/22 amLODIPine BESYLATE [Amlodipine 10 mg PO QAM 06/21/16 03/01/22 Besylate] PARoxetine [Paxil] 20 mg PO QAM 01/09/19 03/01/22 Levothyroxine Sodium [Synthroid] 50 mcg PO DAILY 11/25/19 03/01/22 Naproxen Sodium [Aleve] 440 mg PO Q12HR PRN 07/28/21 03/01/22 Allergies Allergy/AdvReac Type Severity Reaction Status Date / Time No Known Allergies Allergy Verified 03/01/22 11:40 Review of Systems ROS Statement: Those systems with pertinent positive or pertinent negative responses have been documented in the HPI. ROS Other: All systems not noted in ROS Statement are negative. Past Medical History Past Medical History: Cancer, GERD/Reflux, Hypertension, Thyroid Disorder Additional Past Medical History / Comment(s): HX DUODENAL ULCER, PROSTATE CANCER (SURGERY), MELANOMA ., GOUT, INFECTION AFTER WRIST SURGERY AND HARDWARE REMOVED AND CAST WAS APPLIED. 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 History of Any Multi-Drug Resistant Organisms: None Reported Past Surgical History: Appendectomy, Orthopedic Surgery, Prostate Surgery, Tonsillectomy Additional Past Surgical History / Comment(s): COLONOSCOPY, EGD , RIGHT ROTATER CUFF, FX RIGHT WRIST SURGERY, b/l cataract surgery. Past Anesthesia/Blood Transfusion Reactions: No Reported Reaction Past Psychological History: Anxiety Smoking Status: Former smoker - Past Family History Father Family Medical History: Cancer Additional Family Medical History / Comment(s): Prostate cancer. Mother Family Medical History: Cancer Additional Family Medical History / Comment(s): Lung cancer. Brother(s) Family Medical History: Cancer Additional Family Medical History / Comment(s): Prostate cancer. General Exam Limitations: no limitations General appearance: alert, in no apparent distress Head exam: Present: atraumatic, normocephalic, normal inspection Eye exam: Present: normal appearance, PERRL, EOMI. Absent: scleral icterus, conjunctival injection, periorbital swelling Neck exam: Present: normal inspection. Absent: tenderness Respiratory exam: Present: normal lung sounds bilaterally. Absent: respiratory distress, wheezes, rales, rhonchi, stridor Cardiovascular Exam: Present: regular rate, normal rhythm, normal heart sounds. Absent: systolic murmur, diastolic murmur, rubs, gallop, clicks Neurological exam: Present: alert, oriented X3, CN II-XII intact Expanded Patient oriented to: Present: person, place, time Speech: Present: fluid speech Cranial nerves: EOM's Intact: Normal Cerebellar function: Finger to Nose: Normal Motor strength exam: RUE: 5, LUE: 5, RLE: 5, LLE: 5 Eye Response: (4) open spontaneously Motor Response: (6) obeys commands Verbal Response: (5) oriented [place] Total: 15 Psychiatric exam: Present: normal affect, normal mood Skin exam: Present: warm, dry, intact, normal color. Absent: rash Course Vital Signs 09/12/22 09/13/22 18:58 00:04 Temperature 98.5 F 98.1 F Pulse Rate 68 70 Respiratory 18 20 Rate Blood Pressure 148/88 140/78 O2 Sat by Pulse 96 98 Oximetry Medical Decision Making - Medical Decision Making Was pt. sent in by a medical professional or institution (, PA, CHEMICAL PLANT MANAGER, urgent ca re, hospital, or snf...) When possible be specific @ -No Did you speak to anyone other than the patient for history (EMS, parent, family, police, friend...)? What history was obtained from this source @ -No Did you review nursing and triage notes (agree or disagree)? Why? @ -I reviewed and agree with nursing and triage notes Were old charts reviewed (outside hosp., previous admission, EMS record, old EKG, old radiological studies, urgent care reports/EKG's, snf records)? Report findings @ -No old charts were reviewed Differential Diagnosis (chest pain, altered mental status, abdominal pain women, abdominal pain men, vaginal bleeding, weakness, fever, dyspnea, syncope, headache, dizziness, GI bleed, back pain, seizure, CVA, palpatations, mental health, musculoskeletal)? @ -Differential includes intracranial hemorrhage, cervical spine fracture, hematoma, this is not an all inclusive list EKG interpreted by me (3pts min.). @ -As above X-rays interpreted by me (1pt min.). @ -chest x-ray shows no acute process CT interpreted by me (1pt min.). @ -CT shows no acute intracranial process. 2 lytic lesions involving the right articular pillars of C2 and C3. All these could reflect subarticular degenerative cysts underlying metastatic disease is not excluded. There is a suggestion of cortical discontinuity in pathologic fracture is not excluded. No additional fracture seen U/S interpreted by me (1pt. min.). @ -None done What testing was considered but not performed or refused? (CT, X-rays, U/S, labs)? Why? @ -None What meds were considered but not given or refused? Why? @ -None Did you discuss the management of the patient with other professionals (professionals i.e. , PA, CHEMICAL PLANT MANAGER, lab, RT, psych nurse, manager social services, billing associate, teacher, co founder and chief strategy officer, director of casework services)? Give summary @ -My attending spoke with Dr. Valderrama, who states that the changes in the cervical spine seen on CT appear chronic, given that the patient has no neck pain or radicular symptoms he may remove his hard c-collar in follow up with his PCP. I spoke with Dr. Graf who accepted admission Was smoking cessation discussed for >3mins.? @ -No Was critical care preformed (if so, how long)? @ -No Were there social determinants of health that impacted care today? How? (Homelessness, low income, unemployed, alcoholism, drug addiction, transportation, low edu. Level, literacy, decrease access to med. care, custodial, rehab)? @ -No Was there de-escalation of care discussed even if they declined (Discuss DNR or withdrawal of care, Hospice)? DNR status @ -No What co-morbidities impacted this encounter? (DM, HTN, Smoking, COPD, CAD, Cancer, CVA, ARF, Chemo, Hep., AIDS, mental health diagnosis, sleep apnea, morbid obesity)? @ -None Was patient admitted / discharged? Hospital course, mention meds given and route, prescriptions, significant lab abnormalities, going to OR and other pertinent info. @ -Admitted. 71-year-old male presenting for evaluation post fall at home. Patient did hit his head, no loss of consciousness or blood thinners. CT showed no acute intracranial process. There was concern for irregularity seen with the cervical spine. My attending spoke with Dr. Valderrama who states that these irregularities appear chronic, given that the patient has no neck pain we may remove the hard c-collar in patient may follow up with his PCP. Attempted to ambulate the patient but he was unable to do so. He will be admitted for generalized weakness. Basic labs and urine are ordered. I spoke with Dr. Graf who accepted admission. Patient is agreeable with this plan. I discussed this case my attending Dr. Nuñez Undiagnosed new problem with uncertain prognosis? @ -No Drug Therapy requiring intensive monitoring for toxicity (Heparin, Nitro, Insulin, Cardizem)? @ -No Were any procedures done? @ -No Diagnosis/symptom? @ -Weakness, fall Acute, or Chronic, or Acute on Chronic? @ -acute Uncomplicated (without systemic symptoms) or Complicated (systemic symptoms)? @ -Complicated Side effects of treatment? @ -No Exacerbation, Progression, or Severe Exacerbation? @ -No Poses a threat to life or bodily function? How? (Chest pain, USA, CA, pneumonia, PE, COPD, DKA, ARF, appy, cholecystitis, CVA, Diverticulitis, Homicidal, Suicidal, threat to staff... and all critical care pts) @ -Low likelihood - Lab Data Result diagrams: 09/13/22 00:20 09/13/22 00:20 Disposition Clinical Impression: Fall Disposition: ADMITTED IP TO THIS [facility] Condition: Fair Time of Disposition: 23:10
[2022-09-12] MEDS ORDERED: KETOROLAC 15 MG/ML 1 ML VIAL IVP STA (23:11)
[2022-09-12] MEDS ORDERED: ACETAMINOPHEN TAB 325 MG TAB PO PRN (23:49)
[2022-09-12] MEDS ORDERED: NALOXONE 0.4 MG/ML 1 ML VIAL IV PRN (23:49)
[2022-09-12] MEDS: LIDOCAINE 5% PATCH TOPICAL SCH (23:52)
[2022-09-13 00:36] LABS: Basophils % (A) 0 %; Eosinophils # (A) 0.1 k/uL (0-0.7); Eosinophils % (A) 2 %; HGB 11.8 gm/dL (13.0-17.5); Lymphocytes # (A) 0.8 k/uL (1.0-4.8); Lymphocytes % (A) 11 %; MCH 32.1 pg (25.0-35.0); MCHC 33.6 g/dL (31.0-37.0); MCV 95.7 fL (80.0-100.0); Mean Platelet Volume 8.8; Monocytes # (A) 0.6 k/uL (0-1.0); Monocytes % (A) 8 %; Neutrophils # (A) 5.5 k/uL (1.3-7.7); Neutrophils % (A) 76 %; Platelet Count 271 k/uL (150-450); RBC 3.66 m/uL (4.30-5.90); RDW 13.7 % (11.5-15.5); WBC 7.2 k/uL (3.8-10.6)
[2022-09-13 00:57] LABS: ALT 29 U/L (4-49); AST 28 U/L (17-59); African American GFR (CKD) 82 (>60 ml/min/1.73 sqM); Albumin 3.8 g/dL (3.5-5.0); Alkaline Phosphatase 85 U/L (38-126); Anion Gap 6 mmol/L; Blood Urea Nitrogen 23 mg/dL (9-20); Calcium 8.5 mg/dL (8.4-10.2); Carbon Dioxide 25 mmol/L (22-30); Chloride 106 mmol/L (98-107); Glucose 104 mg/dL (74-99); Non-African American GFR(CKD) 71 (>60 ml/min/1.73 sqM); Potassium 4.1 mmol/L (3.5-5.1); Sodium 137 mmol/L (137-145); Total Bilirubin 0.4 mg/dL (0.2-1.3); Total Protein 6.6 g/dL (6.3-8.2)
[2022-09-13 01:54] LABS: Appearance,Urine Clear (Clear); Bilirubin,Urine Negative (Negative); Blood,Urine Negative (Negative); Color,Urine Light Yellow; Glucose,Urine (UA) Negative (Negative); Ketones,Urine Negative (Negative); Leukocyte Esterase,Urine Negative (Negative); Nitrite,Urine Negative (Negative); PH, Urine 6.5 (5.0-8.0); Protein,Urine Negative (Negative); Specific Gravity,Urine 1.014 (1.001-1.035); Urobilinogen,Urine <2.0 mg/dL (<2.0)
[2022-09-13] MEDS ORDERED: KETOROLAC 15 MG/ML 1 ML VIAL IVP STA (02:09)
[2022-09-13] MEDS: PANTOPRAZOLE 40 MG TABLET PO SCH ×2 (02:26→06:21)
--- NOTE | 2022-09-13 05:04 | P.HPIM ---
History of Present Illness H&P Date: 09/13/22 Chief Complaint: fall 71 year old male with hypertension patient coming in for evaluation after sustaining a fall at home. 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 he denies any recent illnesses or hospitalizations. he was in the bathroom when accidentally slipped and fell, hit his head, no LOC. he is not on blood thinner. he found it difficult to get up as he was hurting on his side due to the fall. no nausea , vomiting, no focal neuro deficits, no palpitations, no history of arrhythmias , no chest pain no SOB. denies tobacco smoking or heavy drinking , denies any illicit drugs review of systems Pertinent positives as noted in HPI. All other systems were reviewed and are negative on exam Constitutional: No acute distress, conversant, pleasant Eyes: Anicteric sclerae, moist conjunctiva, Pupils equal round reactive to light ENMT: NC/ hematoma over the left forehead. no open wounds Oropharynx clear, no erythema, or exudates Neck: Supple, no masses, or JVD No carotid bruits No thyromegaly Lungs: Clear to auscultation Clear to percussion Normal respiratory effort, no accessory muscle use Cardiovascular: Heart regular in rate and rhythm, No murmurs, gallops, or rubs No peripheral edema Abdominal: Soft Nontender, no guarding, rebound or rigidity Abdomen moving with respiration Normoactive bowel sounds No hepatomegaly, No splenomegaly No palpable mass No abdominal wall hernia noted Skin: Normal temperature, tone, texture, turgor No induration No subcutaneous nodules No rash, lesions No ulcers Extremities: No digital cyanosis No clubbing Pedal pulses intact and symmetrical Radial pulses intact and symmetrical No calf tenderness Psychiatric: Alert and oriented to person, place and time Appropriate affect fair judgement Neuro Muscles Strength 5/5 in all 4 extremities Sensation to light touch grossly present throughout Cranial nerves II-XII grossly intact Lymphatics: no palpable cervical or supraclavicular lymph nodes Past Medical History Past Medical History: Cancer, GERD/Reflux, Hypertension, Thyroid Disorder Additional Past Medical History / Comment(s): HX DUODENAL ULCER, PROSTATE CANCER (SURGERY), MELANOMA ., GOUT, INFECTION AFTER WRIST SURGERY AND HARDWARE REMOVED AND CAST WAS APPLIED. 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 History of Any Multi-Drug Resistant Organisms: None Reported Past Surgical History: Appendectomy, Orthopedic Surgery, Prostate Surgery, Tonsillectomy Additional Past Surgical History / Comment(s): COLONOSCOPY, EGD , RIGHT ROTATER CUFF, FX RIGHT WRIST SURGERY, b/l cataract surgery. Past Anesthesia/Blood Transfusion Reactions: No Reported Reaction Past Psychological History: Anxiety Smoking Status: Former smoker - Past Family History Father Family Medical History: Cancer Additional Family Medical History / Comment(s): Prostate cancer. Mother Family Medical History: Cancer Additional Family Medical History / Comment(s): Lung cancer. Brother(s) Family Medical History: Cancer Additional Family Medical History / Comment(s): Prostate cancer. Medications and Allergies Home Medications Medication Instructions Recorded Confirmed Type Omeprazole [PriLOSEC] 20 mg PO QAM 06/21/16 03/01/22 History allopurinoL [Allopurinol] 100 mg PO QAM 06/21/16 03/01/22 History amLODIPine BESYLATE [Amlodipine 10 mg PO QAM 06/21/16 03/01/22 History Besylate] PARoxetine [Paxil] 20 mg PO QAM 01/09/19 03/01/22 History Levothyroxine Sodium [Synthroid] 50 mcg PO DAILY 11/25/19 03/01/22 History Naproxen Sodium [Aleve] 440 mg PO Q12HR PRN 07/28/21 03/01/22 History Allergies Allergy/AdvReac Type Severity Reaction Status Date / Time No Known Allergies Allergy Verified 03/01/22 11:40 Physical Exam Vitals: Vital Signs Temp Pulse Pulse Resp BP BP Pulse Ox 09/13/22 01:23 97.9 F 85 18 142/83 98 09/13/22 00:04 98.1 F 70 20 140/78 98 09/12/22 18:58 98.5 F 68 18 148/88 96 Intake and Output 09/12/22 09/12/22 09/13/22 14:59 22:59 06:59 Output Total 600 Balance -600 Output: Urine 600 Other: Voiding Method Urinal Weight 119.748 kg 119.748 kg Results CBC & Chem 7: 09/13/22 00:20 09/13/22 00:20 Labs: Abnormal Lab Results - Last 24 Hours (Table) 09/13/22 09/13/22 Range/Units 00:20 00:20 RBC 3.66 L (4.30-5.90) m/uL Hgb 11.8 L (13.0-17.5) gm/dL Hct 35.0 L (39.0-53.0) % Lymphocytes # 0.8 L (1.0-4.8) k/uL BUN 23 H (9-20) mg/dL Glucose 104 H (74-99) mg/dL Thrombosis Risk Factor Assmnt - Choose All That Apply Each Factor Represents 1 point: Medical pt on bed rest, Obesity (BMI >25) Each Risk Factor Represents 2 Points: Age 61-74 years Thrombosis Risk Factor Assessment Total Risk Factor Score: 4 Thrombosis Risk Factor Assessment Level: Moderate Risk Assessment and Plan Assessment: 71 year old male with hypertension , had an accidental fall at home , coming in for evaluation , I discussed the case with ED doc, patient had refractory pain to his side, with difficulty moving, I accepted the admission for pain control with anticipated length of stay < 2 midnights refractory pain post accidental fall at home pain control with Toradol PRN 15 mg IVP Protonix 40 mg po daily h/o duodenal ulcer CT brain no acute fractures, suspicious lytic lesion over C1 and C2, consider OP workup , patient does have history of rectal cancer in remission mild anemia Hgb 11.8 denies GI bleeding h/o duodenal ulcer Protonix 40 mg po daily patient had 6 C scopes over past 3 years with his GI specialist , post rectal cancer hypertension , controlled resume amlodipine hypothyroid resume levothyroxine renal function unremarkable with Na 137, K 4.1 , BUN 23 , Cr 1.05 CXR no acute pathology full code fall precautions DVT PPX mechanical
[2022-09-13] MEDS: LEVOTHYROXINE 50 MCG TAB PO SCH (06:21)
[2022-09-13] MEDS: amLODIPine 10 MG TAB PO SCH (08:37)
[2022-09-13] MEDS: LIDOCAINE 5% PATCH TOPICAL SCH (08:37)
[2022-09-13] MEDS: FLUoxetine HCL 20 MG CAP PO SCH (08:37)
[2022-09-13] MEDS ORDERED: PARoxetine 20 MG TAB PO SCH (09:00)
--- NOTE | 2022-09-13 19:25 | P.PN ---
Subjective Progress Note Date: 09/13/22 Hospital course: Patient is a 71-year-old male with a past medical history hypertension and hypothyroidism. He presented to the emergency department status post fall at home. Patient reportedly tripped and fell hitting his head when ambulating his to use the restroom. 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 He underwent full evaluation in the emergency department chest x-ray was completed negative for acute cardiopulmonary process. CT had completed revealing right articular pillars of C2 and C3 which could reflect degenerative cysts versus underlying metastatic process, recommend outpatient follow-up for repeat imaging. Physical exam: Vital signs reviewed and stable. General: Nontoxic, no distress and appears stated age. Derm: Skin warm and dry, normal coloration for ethnicity. Head: Small abrasion with bruising to left lateral head, normocephalic and symmetric. Eyes: EOMs intact, no lid lag, and anicteric sclera Mouth: no lip lesions, mucus membranes moist Cardiovascular: regular rate and rhythm with normal S1S2, systolic murmur, positive posterior tibial pulses bilaterally, and cap refill < 2 seconds. Lungs: Respirations even, regular, and unlabored on room air. Lungs CTA bilaterally, no rhonchi, no rales, no wheezing, and no accessory muscle usage. Abdominal: soft, nontender to palpation, no guarding, no appreciable organomegaly Ext: ROM intact. No gross muscle atrophy, 1+ bilateral lower extremity pitting edema, no contractures Neuro: Speech clear, face symmetrical and CN II-XII grossly intact with no noted focal neuro deficits Psych: Alert and oriented to person, place, time, and situation. Appropriate and pleasant affect. Assessment and Plan of Care: Mechanical fall Generalized pain/discomfort Head injury -Fall precautions -PT/OT consult -Symptomatic care and pain management -Consult orthospine secondary to persistent pain and CT findings of articular pillars of C2 and C3\ Hypertension -Monitor vital signs and continue daily medication regimen with amlodipine. Hypothyroidism -Continue daily medication management with levothyroxine. CODE STATUS: Full code DVT prophylaxis: SCDs Discussed with: Patient and RN Anticipated discharge date: 24-[address]: Home Patient was seen independently by Nurse Pracitioner. This document was prepared using [employer] dictation software. Please allow for errors in mounter smoking pipe, while rare they do occur. Goran Pako, FUNCTIONAL ARCHITECT rendered care for this patient independently, reviewed the findings and plan as documented in the note above. I did not physically speak with or examine the patient on this date. Objective - Vital Signs Vital signs: Vital Signs Temp 97.9 F 09/13/22 07:00 Pulse 72 09/13/22 07:00 Resp 18 09/13/22 07:00 BP 138/71 09/13/22 07:00 Pulse Ox 96 09/13/22 07:00 FiO2 Intake & Output 09/12/22 09/13/22 09/13/22 18:59 06:59 18:59 Output Total 600 Balance -600 Weight 119.748 kg 119.748 kg Output: Urine 600 Other: Voiding Method Urinal - Labs CBC & Chem 7: 09/14/22 05:43 09/14/22 05:43 Labs: Abnormal Lab Results - Last 24 Hours (Table) 09/13/22 09/13/22 Range/Units 00:20 00:20 RBC 3.66 L (4.30-5.90) m/uL Hgb 11.8 L (13.0-17.5) gm/dL Hct 35.0 L (39.0-53.0) % Lymphocytes # 0.8 L (1.0-4.8) k/uL BUN 23 H (9-20) mg/dL Glucose 104 H (74-99) mg/dL
[2022-09-13] MEDS: HYDROcodone/APAP 5-325MG 1 EACH TAB PO PRN (21:13)
[2022-09-14] MEDS: PANTOPRAZOLE 40 MG TABLET PO SCH (05:49)
[2022-09-14] MEDS: LEVOTHYROXINE 50 MCG TAB PO SCH (05:49)
[2022-09-14 08:52] LABS: ALT 28 U/L (10-49); AST 23 U/L (14-35); Albumin/Globulin Ratio 1.67 Ratio (1.60-3.17); Alkaline Phosphatase 93 U/L (41-126); BUN/Creat Ratio 21.58 Ratio (12.00-20.00); Blood Urea Nitrogen 25.9 mg/dL (9.0-27.0); Calcium 9.1 mg/dL (8.7-10.3); Carbon Dioxide 25.2 mmol/L (21.6-31.8); Chloride 104 mmol/L (96-109); Globulin 2.4 d/dL (1.6-3.3); Glucose 94 mg/dL (70-110); Potassium 4.4 mmol/L (3.5-5.5); Sodium 139 mmol/L (135-145); Total Bilirubin 0.3 mg/dL (0.3-1.2); Total Protein 6.4 d/dL (6.2-8.2)
[2022-09-14] MEDS: FLUoxetine HCL 20 MG CAP PO SCH (08:59)
[2022-09-14] MEDS: amLODIPine 10 MG TAB PO SCH (08:59)
[2022-09-14] MEDS: MORPHINE SULFATE 4 MG/ML SYRINGE IV PRN ×3 (09:02→20:51)
[2022-09-14 09:04] LABS: HCT 37.9 % (39.6-50.0); MCH 30.5 pg (27.0-32.0); MCHC 31.7 d/dL (32.0-37.0); MCV 96.2 FL (80.0-97.0); Mean Platelet Volume 10.2 FL (9.5-12.2); NRBC Per 100 WBC 0 X 10*3/uL (0.00-0.01); Platelet Count 260 X 10*3/uL (140-440); RBC 3.94 X 10*6/uL (4.40-5.60); RDW 13.7 % (11.5-14.5); WBC 6.05 X 10*3/uL (4.50-10.00)
--- NOTE | 2022-09-14 10:48 | CT ---
EXAMINATION TYPE: CT CervThoracic spine wo con DATE OF EXAM: 09/14/2022 COMPARISON: None HISTORY: Increased left sided rib/back pain post fall. CT DLP: 1328 mGycm Automated exposure control for dose reduction was used. Contrast: None Technique: Axial images 3 mm thick sections. Reconstructed images in the coronal and sagittal planes. FINDINGS: Uncovertebral joint hypertrophy is present bilaterally C3-4 on the left at C2-3 and to mild degree bi laterally C4-5 contributes to some mild foraminal narrowing. Correlate with radicular symptoms. Some endplate spurring is present centrally at C4-5 mild anterior thecal sac compression. Central and endplate spurring is present C5-6 without spinal canal stenosis Vertebral body heights are preserved. Mild diffuse disc space narrowing is present through the cervic al spine and to a lesser degree through the thoracic spine. No spinal canal stenosis is present. No a cute osseous abnormality is evident. Vertebral body heights are preserved. Other: Kidneys within the field of view appear unremarkable. Note is made of cholelithiasis. Liver sp mary and pancreas within the field of view is unremarkable. No pericardial effusion is evident. Mild coronary artery calcification is noted. Lung windows appear clear. IMPRESSION: 1. MILD CERVICAL SPINE DEGENERATIVE DISC CHANGE, UNCOVERTEBRAL JOINT HYPERTROPHY AND ENDPLATE SPURRIN G DISCUSSED ABOVE. CORRELATE WITH RADICULAR SYMPTOMS. NO SPINAL CANAL STENOSIS IS EVIDENT. 2. MILDER DEGENERATIVE CHANGES WITHIN THE THORACIC SPINE WITHOUT SPINAL CANAL STENOSIS
[2022-09-14] MEDS: LIDOCAINE 5% PATCH TOPICAL SCH (11:01)
[2022-09-14] MEDS: HYDROcodone/APAP 5-325MG 1 EACH TAB PO PRN (11:01)
--- NOTE | 2022-09-14 11:05 | XR ---
EXAMINATION TYPE: XR ribs LT w pa chest xray DATE OF EXAM: 09/14/2022 CLINICAL HISTORY: Worsening left rib pain after fall injury. TECHNIQUE: Single frontal view of the chest is obtained. A frontal and oblique images of the left-ena ed ribs. COMPARISON: Chest x-ray 2 days earlier and older studies. FINDINGS: There is focal left lower lung linear scarring and/or atelectasis redemonstrated. Right bernie g remains clear. The cardiac silhouette size is stable and upper limits of normal. The osseous str uctures are intact. Dedicated images of the left-sided ribs show no acute displaced fractures. Overlying soft tissue is u nremarkable. IMPRESSION: 1. No acute displaced left-sided rib fractures. 2. No suspicious new acute pulmonary process.
[2022-09-14] MEDS ORDERED: KETOROLAC 15 MG/ML 1 ML VIAL IVP STA (13:33)
[2022-09-14] MEDS ORDERED: ORPHENADRINE 30 MG/ML 2 ML VIAL IVP STA (13:33)
[2022-09-14] MEDS ORDERED: LORazepam 2 MG/ML INJ IV STA (14:16)
--- NOTE | 2022-09-14 16:21 | MR ---
EXAMINATION TYPE: MR brain wo con DATE OF EXAM: 09/14/2022 3:35 PM COMPARISON: 09/04/2022 CT. CLINICAL INDICATION:Male, 71 years old with history of new weakness; New weakness TECHNIQUE: Multi planar, multi sequence imaging was performed through the brain including: T1, T2, In version recovery, Diffusion weighted imaging, and gradient echo imaging. No gadolinium was given. FINDINGS: Dilation of the ventricles in proportion to cerebral atrophy.. Left scalp hematoma remains present. S cattered foci of high T2 signal intensity are seen within the periventricular white matter. Midline s tructures show no abnormality. Diffusion-weighted imaging shows no evidence of restricted diffusion. The susceptibility weighted images do not reveal any evidence for micro-hemorrhage. The bone marrow signal is within normal limits. Paranasal sinuses and mastoid air cells: Mild scattered paranasal sinus disease. Visualized orbits: Bilateral aphakia IMPRESSION: 1. No evidence of intracranial mass or acute/subacute infarct. 2. Nonspecific white matter changes, likely secondary to small vessel ischemic disease. 3. Left scalp hematoma.
--- NOTE | 2022-09-14 16:21 | MR ---
EXAMINATION TYPE: MR cspine/tspine wo con DATE OF EXAM: 09/14/2022 4:15 PM CLINICAL INDICATION:Male, 71 years old with history of new weakness; New weakness COMPARISON: CT 09/04/2022 TECHNIQUE: Multi planar, multi sequence imaging was performed utilizing: T1-weighted, T2-weighted, a nd turbo inversion recovery imaging of the cervical and thoracic spine. MR contrast: IV Contrast: None. FINDINGS: CERVICAL: Motion artifact limits evaluation. Alignment: The cervical vertebral bodies have preserved heights. Alignment is within normal limits gi nany patient positioning. Bones: Scattered mild degeneration changes with osteophyte formation, disc space narrowing and facet and uncovertebral joint arthropathy. Cord: The spinal cord is unremarkable with regards to their signal intensity and morphology. Discs: Multilevel disc desiccation is present. C2-C3: No significant disc pathology. The spinal canal is patent. No neural foraminal stenosis. C3-C4: No significant disc pathology. The spinal canal is patent. No neural foraminal stenosis. C4-C5: A disc osteophyte complex is present with mild spinal canal stenosis. This impresses upon the anterior spinal cord. Bilateral facet and uncovertebral joint arthropathy are present with moderate right and mild to moderate left neural foraminal stenosis. C5-C6: A disc osteophyte complex is present with mild spinal canal stenosis. This impresses upon the anterior spinal cord. Bilateral facet and uncovertebral joint arthropathy are present with mild bila teral neural foraminal stenosis. C6-C7: No significant disc pathology. The spinal canal is patent. No neural foraminal stenosis. C7-T1: No significant disc pathology. The spinal canal is patent. No neural foraminal stenosis. THORACIC: . Multilevel disc degeneration changes of the thoracic spine with disc space narrowing, ost eophytes and Schmorl's nodes. Facet joint arthropathy seen throughout the thoracic spine. No evidence for fracture or significant spinal canal or neural foraminal stenosis. The spinal cord signal is dina ntained. Other: None. IMPRESSION: Extremely limited exam secondary to motion artifact. 1. C4-C5 and C5-C6 central Disc osteophyte complex which impresses upon the anterior spinal cord. Sp inal cord signal is maintained. 2. Degeneration changes worse at C4-C5 and C5-C6 with at least moderate right C4-C5 and mild bilater al C5-C6 neural foraminal stenosis. 3. No evidence for significant spinal canal or neural foraminal stenosis of the thoracic spine.
--- NOTE | 2022-09-14 18:40 | P.PN ---
Subjective Progress Note Date: 09/14/22 Hospital course: Patient is a 71-year-old male with a past medical history hypertension and hypothyroidism. He presented to the emergency department status post fall at home. Patient reportedly tripped and fell hitting his head when ambulating his to use the restroom. 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 Patient since having difficulty with ambulation, pain Phy to left rib region and upper back with palpation and/or movement. Patient requiring moderate to maximum assistance at this time. PT/OT following. Repeat imaging being ordered at this time. Physical exam: Vital signs reviewed and stable. General: Nontoxic, no distress and appears stated age. Derm: Skin warm and dry, normal coloration for ethnicity. Head: Small abrasion with bruising to left lateral head, normocephalic and symmetric. Eyes: EOMs intact, no lid lag, and anicteric sclera Mouth: no lip lesions, mucus membranes moist Cardiovascular: regular rate and rhythm with normal S1S2, systolic murmur, positive posterior tibial pulses bilaterally, and cap refill < 2 seconds. Lungs: Respirations even, regular, and unlabored on room air. Lungs CTA bila terally, no rhonchi, no rales, no wheezing, and no accessory muscle usage. Abdominal: soft, nontender to palpation, no guarding, no appreciable organomegaly. Patient reporting significant pain to left rib region upon palpation. No noted bruising, erythema, or obvious injury. Ext: Movement and sensation intact, however limited secondary to patient's reports of pain. No gross muscle atrophy, scant lower extremity edema, no contractures Neuro: Speech clear, face symmetrical and CN II-XII grossly intact with no noted focal neuro deficits Psych: Alert and oriented to person, place, time, and situation. Appropriate and pleasant affect. Assessment and Plan of Care: Mechanical fall, trip and fall Left rib pain accompanied by thoracic back pain Generalized pain/discomfort Head injury -Fall precautions -PT/OT following and discussed plan of care with physical and occupational therapist, patient continues to require moderate to maximum assistance with sitting and standing. Patient baseline independent and is the primary caregiver for his at home. -Patient reporting significant left flank pain and upon further evaluation also reporting pain/discomfort to thoracic region of the back. -Order placed for x-ray left ribs and CT cervical and thoracic spine. -Continue symptomatic care and pain management -Order placed for 5% lidocaine patch, Toradol 15 mg IVP 1 dose, and Norflex 60 mg IVP 1 dose. -Consult placed to orthospine surgery secondary to persistent pain and CT findin gs of articular pillars of C2 and C3. Hypertension -Monitor vital signs and continue daily medication regimen with amlodipine 10 mg daily . Hypothyroidism -Continue daily medication management with levothyroxine 50 mg daily . Data review: CBC unremarkable with stable hemoglobin of 12.0, WBC count 6.05, and platelet count of 260. BMP unremarkable. Liver profile unremarkable. Urinalysis unre markable with no signs of blood, protein, or infection. Vital signs reviewed. Blood pressure 172/80, heart rate 82, respiratory rate 16, SpO2 96% on room air and temp 97.9F. Imaging review: -Order placed for CT cervical and thoracic spine without contrast will follow-up on results -Order placed for x-ray left ribs CODE STATUS: Full code DVT prophylaxis: SCDs Discussed with: Patient, physical therapist, occupational therapist and RN Anticipated discharge date: 24-[address]: Home vs alf facility pending improvement with patient's ambulation and ability to perform ADLs independently Patient was seen independently by Nurse Pracitioner. This document was prepared using [employer] dictation software. Please allow for errors in corporate buyer, while rare they do occur. alexey Min NP rendered care for this patient independently, reviewed the findings and plan as documented in the note above. I did not physically speak with or examine the patient on this date. Objective - Vital Signs Vital signs: Vital Signs Temp 97.9 F 09/14/22 07:30 Pulse 82 09/14/22 07:30 Resp 16 09/14/22 07:30 BP 172/80 09/14/22 07:30 Pulse Ox 96 09/14/22 07:30 FiO2 Intake & Output 09/13/22 09/14/22 09/14/22 18:59 06:59 18:59 Intake Total 120 Balance 120 Intake: Oral 120 Other: Voiding Method Urinal # Voids 1 1 - Labs CBC & Chem 7: 09/14/22 05:43 09/14/22 05:43 Labs: Abnormal Lab Results - Last 24 Hours (Table) 09/14/22 09/14/22 Range/Units 05:43 05:43 RBC 3.94 L (4.40-5.60) X 10*6/uL Hct 37.9 L (39.6-50.0) % MCHC 31.7 L (32.0-37.0) d/dL BUN/Creatinine Ratio 21.58 H (12.00-20.00) Ratio
[2022-09-15] MEDS: MORPHINE SULFATE 4 MG/ML SYRINGE IV PRN ×3 (04:56→19:53)
[2022-09-15] MEDS: LEVOTHYROXINE 50 MCG TAB PO SCH (06:09)
[2022-09-15] MEDS: PANTOPRAZOLE 40 MG TABLET PO SCH (06:09)
[2022-09-15] MEDS: HYDROcodone/APAP 5-325MG 1 EACH TAB PO PRN ×2 (08:49→16:11)
[2022-09-15] MEDS: amLODIPine 10 MG TAB PO SCH (08:49)
[2022-09-15] MEDS: LIDOCAINE 5% PATCH TOPICAL SCH (08:51)
[2022-09-15] MEDS: FLUoxetine HCL 20 MG CAP PO SCH (08:51)
--- NOTE | 2022-09-15 09:03 | P.CNOR ---
History of Present Illness - [facility] Consult date: 09/15/22 Requesting physician: Goran Min Consult reason: other (Left rib pain and thoracic back pain) History of present illness: Patient is a 71-year-old male who presented to the emergency department on 09/12/2022 status post fall at home. Patient was in his bathroom at home and his head on the floor. Patient was seen at bedside this morning sitting up in chair with legs elevated. Patient says at this time mostly he is having pain in the lives rib cage. Patient says he has been up and walking with therapy, however is been difficult because he says he does get short of breath due to the pain on the left side. Patient denies any back pain at this time. Patient denies any saddle anesthesia/loss of bowel/bladder control. Patient denies any neck pain. Patient is not on any blood thinners. When patient did fall at home. Patient denied losing consciousness. Patient did have MRI of cervical and thoracic spines which were negative for any acute processes. Spinal cord appeared to be patent. Negative for any fractures/significant stenosis. Patient denies chest pain, fever, nausea, vomiting, change in vision, loss of bowel/bladder control. Past Medical History Past Medical History: Cancer, GERD/Reflux, Hypertension, Thyroid Disorder Additional Past Medical History / Comment(s): HX DUODENAL ULCER, PROSTATE CANCER (SURGERY), MELANOMA ., GOUT, INFECTION AFTER WRIST SURGERY AND HARDWARE REMOVED AND CAST WAS APPLIED. 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 History of Any Multi-Drug Resistant Organisms: None Reported Past Surgical History: Appendectomy, Orthopedic Surgery, Prostate Surgery, Tonsillectomy Additional Past Surgical History / Comment(s): COLONOSCOPY, EGD , RIGHT ROTATER CUFF, FX RIGHT WRIST SURGERY, b/l cataract surgery. Past Anesthesia/Blood Transfusion Reactions: No Reported Reaction Past Psychological History: Anxiety Smoking Status: Former smoker - Past Family History Father Family Medical History: Cancer Additional Family Medical History / Comment(s): Prostate cancer. Mother Family Medical History: Cancer Additional Family Medical History / Comment(s): Lung cancer. Brother(s) Family Medical History: Cancer Additional Family Medical History / Comment(s): Prostate cancer. Medications and Allergies Home Medications Medication Instructions Recorded Confirmed Type Omeprazole [PriLOSEC] 20 mg PO DAILY 06/21/16 09/13/22 History allopurinoL [Allopurinol] 100 mg PO DAILY 06/21/16 09/13/22 History FLUoxetine HCL 20 mg PO DAILY 09/13/22 09/13/22 History Indomethacin [Indocin] 50 mg PO TID PRN 09/13/22 09/13/22 History Levothyroxine Sodium [Synthroid] 50 mcg PO DAILY 09/13/22 09/13/22 History amLODIPine [Norvasc] 10 mg PO DAILY 09/13/22 09/13/22 History Allergies Allergy/AdvReac Type Severity Reaction Status Date / Time No Known Allergies Allergy Verified 09/13/22 07:57 Physical Examination Inspection: Negative for any open fractures, seen for erythema/wounds. There is some ecchymosis present over the left side of the forehead where patient did fall. Sensation: Sensation is equal, symmetric, bilaterally intact Palpation: There is moderate tenderness to patient over the left-sided rib cage. Nontender to palpation throughout rest of exam Range of motion: Patient has full range of motion in bilateral upper and lower extremities Motor: 5/5 in all major motor groups in bilateral upper extremities. 4+/5 in all major motor in bilateral lower extremities Special tests: Negative clonus bilaterally. Negative Loco bilaterally. Negative Homans bilaterally. Neurovascular: Radial pulses intact, 2+ bilaterally. Cap refill under 3 seconds in digits of the upper extremities. Results - Labs Labs: Abnormal Lab Results - Last 24 Hours (Table) 09/14/22 09/14/22 Range/Units 05:43 05:43 RBC 3.94 L (4.40-5.60) X 10*6/uL Hct 37.9 L (39.6-50.0) % MCHC 31.7 L (32.0-37.0) d/dL BUN/Creatinine Ratio 21.58 H (12.00-20.00) Ratio H & H 09/13/22 09/14/22 Range/Units 00:20 05:43 Hgb 11.8 L 12.0 (13.0-17.5) gm/dL Hct 35.0 L 37.9 L (39.0-53.0) % Result Diagrams: 09/14/22 05:43 09/14/22 05:43 - Diagnostic results Cervical MRI with/without contrast: report reviewed, image reviewed (Cervical spine MRI presents with some generalized cervical spondylosis and mild stenosis. Negative for any significant neuroforaminal/ central cord stenosis) CT scan - cervical: report reviewed (CT of cervical spine resistance with some generalized cervical spondylosis. Negative for any fractures throughout the cervical and thoracic spine. Cord appears to be patent), image reviewed Assessment and Plan Assessment: 1. Left upper abdominal pain; mild cervical spondylosis Plan: 1. Left upper abdominal pain; mild cervical spondylosis - computed tomography scan of the thoracic and cervical spine performed. Negative for any fractures. There is some generalized spondylosis throughout the cervical spine. MRI of the cervical and thoracic spine performed. Some mild stenosis in the cervical spine. Negative for any moderate to significant stenosis. Patient stable at bedside this morning. At this time we are not recommending any emergent/urgent orthopedic surgical intervention. We do recommend patient to follow-up in the outpatient setting for further evaluation as needed with Dr. Valderrama. Pain medication as needed. PT/OT daily. At this time orthopedics is signing off. Please do not hesitate to contact us for any further questions. 2. Appreciate medical management 3. Pain management - Tylenol; [place] 4. DVT prophylaxis - mechanical 5. GI prophylaxis - Protonix 6. PT/OT - weightbearing as tolerated with walker and assistance as needed 7. Encourage incentive spirometer use 8. Appreciate consult Time with Patient: Less than 30
--- NOTE | 2022-09-15 13:52 | P.PN ---
Subjective Progress Note Date: 09/15/22 No new complaints today. Ongoing pain with breathing and requiring max assist with PT. Gen: awake, alert HEENT: normocephalic, atraumatic, good hearing acuity, moist mucous membranes Resp: good air exchange, breathing comfortably with no accessory muscle use CVS: good distal perfusion x 4, GI: soft, NTTP, ND : no SPT, no CVAT, guzman catheter not present MSK: no pitting edema, no clubbing Neuro: non-focal, moving all extremities Psych: cooperative, euthymic mood Assessment and Plan of Care: Mechanical fall, trip and fall Left rib pain accompanied by thoracic back pain Generalized pain/discomfort Head injury -Fall precautions -PT/OT following, recommending SNF for [facility] -Continue symptomatic care and pain management -Order placed for 5% lidocaine patch, Toradol 15 mg IVP 1 dose, and Norflex 60 mg IVP 1 dose. -Consult placed to orthospine surgery secondary to persistent pain and CT findings of articular pillars of C2 and C3. Hypertension -Monitor vital signs and continue daily medication regimen with amlodipine 10 mg daily . Hypothyroidism -Continue daily medication management with levothyroxine 50 mg daily . Data review: CBC unremarkable with stable hemoglobin of 12.0, WBC count 6.05, and platelet count of 260. BMP unremarkable. Liver profile unremarkable. Urinalysis unremarkable with no signs of blood, protein, or infection. Vital signs reviewed. Blood pressure 172/80, heart rate 82, respiratory rate 16, SpO2 96% on room air and temp 97.9F. Imaging review: -Order placed for CT cervical and thoracic spine without contrast will follow-up on results -Order placed for x-ray left ribs CODE STATUS: Full code DVT prophylaxis: SCDs Discussed with: Patient, physical therapist, occupational therapist and RN Anticipated discharge date: 24-[address]: Home vs penitentiary facility pending improvement with patient's ambulation and ability to perform ADLs independently Objective - Vital Signs Vital signs: Vital Signs Temp 97.9 F 09/15/22 07:00 Pulse 76 09/15/22 08:00 Resp 15 09/15/22 08:00 BP 126/70 09/15/22 07:00 Pulse Ox 95 09/15/22 07:00 FiO2 Intake & Output 09/14/22 09/15/22 09/15/22 18:59 06:59 18:59 Intake Total 354 118 Output Total 300 900 Balance 630 -359 -452 Intake: Oral 354 118 Output: Urine 300 900 Other: Voiding Method Urinal Urinal # Voids 1 1 - Labs CBC & Chem 7: 09/14/22 05:43 09/14/22 05:43
[2022-09-16] MEDS: MORPHINE SULFATE 4 MG/ML SYRINGE IV PRN ×2 (00:42→04:50)
[2022-09-16] MEDS: PANTOPRAZOLE 40 MG TABLET PO SCH (05:05)
[2022-09-16] MEDS: LEVOTHYROXINE 50 MCG TAB PO SCH (05:05)
[2022-09-16] MEDS: HYDROcodone/APAP 5-325MG 1 EACH TAB PO PRN (07:42)
[2022-09-16] MEDS: FLUoxetine HCL 20 MG CAP PO SCH (09:00)
[2022-09-16] MEDS: amLODIPine 10 MG TAB PO SCH (09:00)
[2022-09-16] MEDS: LIDOCAINE 5% PATCH TOPICAL SCH (09:01)
[2022-09-16] MEDS: IBUPROFEN 400 MG TAB PO PRN ×2 (11:41→22:12)
--- NOTE | 2022-09-16 13:33 | P.PN ---
Subjective Progress Note Date: 09/16/22 No new complaints today. Appears comfortable on interview, but reports uncontrolled pain Gen: awake, alert HEENT: normocephalic, atraumatic, good hearing acuity, moist mucous membranes Resp: good air exchange, breathing comfortably with no accessory muscle use CVS: good distal perfusion x 4, GI: soft, NTTP, ND : no SPT, no CVAT, guzman catheter not present MSK: no pitting edema, no clubbing Neuro: non-focal, moving all extremities Psych: cooperative, euthymic mood Assessment and Plan of Care: Mechanical fall, trip and fall Left rib pain accompanied by thoracic back pain Generalized pain/discomfort Head injury -Fall precautions -PT/OT following, recommending SNF for [facility] -Continue symptomatic care and pain management -Pain contro: tylenol PRN, ibuprofen PRN, lidocaine patch, norco PRN; discontinue morphine. -Consult placed to orthospine surgery secondary to persistent pain and CT findings of articular pillars of C2 and C3. Hypertension -Monitor vital signs and continue daily medication regimen with amlodipine 10 mg daily . Hypothyroidism -Continue daily medication management with levothyroxine 50 mg daily . Data review: CBC unremarkable with stable hemoglobin of 12.0, WBC count 6.05, and platelet count of 260. BMP unremarkable. Liver profile unremarkable. Urinalysis unremarkable with no signs of blood, protein, or infection. Vital signs reviewed. Blood pressure 172/80, heart rate 82, respiratory rate 16, SpO2 96% on room air and temp 97.9F. Imaging review: -Order placed for CT cervical and thoracic spine without contrast will follow-up on results -Order placed for x-ray left ribs CODE STATUS: Full code DVT prophylaxis: SCDs Discussed with: Patient, physical therapist, occupational therapist and RN Anticipated discharge date: 24-[address]: Home vs shelter facility pending improvement with patient's ambulation and ability to perform ADLs independently Objective - Vital Signs Vital signs: Vital Signs Temp 97.5 F L 09/16/22 07:00 Pulse 76 09/16/22 08:00 Resp 16 09/16/22 08:00 BP 155/72 09/16/22 07:00 Pulse Ox 96 09/16/22 07:00 FiO2 Intake & Output 09/15/22 09/16/22 09/16/22 18:59 06:59 18:59 Intake Total 118 118 Output Total 900 1425 Balance -406 -1620 118 Intake: Oral 118 118 Output: Urine 900 1425 Other: Voiding Method Urinal Urinal Urinal # Voids 1 - Labs CBC & Chem 7: 09/14/22 05:43 09/14/22 05:43
[2022-09-17] MEDS: HYDROcodone/APAP 5-325MG 1 EACH TAB PO PRN ×2 (04:48→17:03)
[2022-09-17] MEDS: LEVOTHYROXINE 50 MCG TAB PO SCH (06:04)
[2022-09-17] MEDS: PANTOPRAZOLE 40 MG TABLET PO SCH (06:04)
[2022-09-17] MEDS: FLUoxetine HCL 20 MG CAP PO SCH (07:58)
[2022-09-17] MEDS: IBUPROFEN 400 MG TAB PO PRN ×2 (07:58→21:11)
[2022-09-17] MEDS: amLODIPine 10 MG TAB PO SCH (07:58)
[2022-09-17] MEDS: LIDOCAINE 5% PATCH TOPICAL SCH (09:49)
--- NOTE | 2022-09-17 12:47 | P.PN ---
Subjective Progress Note Date: 09/17/22 No new complaints today. Appears comfortable on interview. Pending SNF placement. Gen: awake, alert HEENT: normocephalic, atraumatic, good hearing acuity, moist mucous membranes Resp: good air exchange, breathing comfortably with no accessory muscle use CVS: good distal perfusion x 4, GI: soft, NTTP, ND : no SPT, no CVAT, guzman catheter not present MSK: no pitting edema, no clubbing Neuro: non-focal, moving all extremities Psych: cooperative, euthymic mood Assessment and Plan of Care: Mechanical fall, trip and fall Left rib pain accompanied by thoracic back pain Generalized pain/discomfort Head injury -Fall precautions -PT/OT following, recommending SNF for [facility] -Continue symptomatic care and pain management -Pain contro: tylenol PRN, ibuprofen PRN, lidocaine patch, norco PRN; discontinue morphine. -Consult placed to orthospine surgery secondary to persistent pain and CT findings of articular pillars of C2 and C3. Hypertension -Monitor vital signs and continue daily medication regimen with amlodipine 10 mg daily . Hypothyroidism -Continue daily medication management with levothyroxine 50 mg daily . Data review: CBC unremarkable with stable hemoglobin of 12.0, WBC count 6.05, and platelet count of 260. BMP unremarkable. Liver profile unremarkable. Urinalysis unremarkable with no signs of blood, protein, or infection. Vital signs reviewed. Blood pressure 172/80, heart rate 82, respiratory rate 16, SpO2 96% on room air and temp 97.9F. Imaging review: -Order placed for CT cervical and thoracic spine without contrast will follow-up on results -Order placed for x-ray left ribs CODE STATUS: Full code DVT prophylaxis: SCDs Discussed with: Patient, physical therapist, occupational therapist and RN Anticipated discharge date: 24-[address]: Home vs residential facility pending improvement with patient's ambulation and ability to perform ADLs independently Objective - Vital Signs Vital signs: Vital Signs Temp 98.2 F 09/17/22 07:00 Pulse 71 09/17/22 08:00 Resp 16 09/17/22 08:00 BP 122/67 09/17/22 07:00 Pulse Ox 97 09/17/22 07:00 FiO2 Intake & Output 09/16/22 09/17/22 09/17/22 18:59 06:59 18:59 Intake Total 218 200 Output Total 25 Balance 218 175 Intake: Oral 218 200 Output: Urine 25 Other: Voiding Method Urinal Urinal Urinal # Voids 1 1 1 - Labs CBC & Chem 7: 09/14/22 05:43 09/14/22 05:43
[2022-09-18] MEDS: LEVOTHYROXINE 50 MCG TAB PO SCH (06:27)
[2022-09-18] MEDS: PANTOPRAZOLE 40 MG TABLET PO SCH (06:27)
[2022-09-18] MEDS: amLODIPine 10 MG TAB PO SCH (08:55)
[2022-09-18] MEDS: FLUoxetine HCL 20 MG CAP PO SCH (08:55)
[2022-09-18] MEDS: LIDOCAINE 5% PATCH TOPICAL SCH (08:55)
[2022-09-18] MEDS: HYDROcodone/APAP 5-325MG 1 EACH TAB PO PRN ×2 (10:34→20:28)
--- NOTE | 2022-09-18 11:41 | P.PN ---
Subjective Progress Note Date: 09/18/22 Patient is a 71-year-old male with a past medical history hypertension and hypothyroidism. He presented to the emergency department status post fall at home. Patient reportedly tripped and fell hitting his head when ambulating his to use the restroom. He denied any loss of consciousness. He underwent extensive workup including CT head, CT C-spine, chest x-ray, cervical and thoracic spine CT, brain MRI, cervical and thoracic spine MRI. PT and OT evaluated the patient and recommended SNF. He is pending insurance authorization. 09/18 Patient was seen and examined. No acute events overnight. He reports that he had a bowel movement today. Pain is well controlled with current pain regimen. No new labs done today. He is pending insurance authorization for SNF. His BP is 137/77, HR of 81. Gen: awake, alert HEENT: normocephalic, atraumatic, good hearing acuity, moist mucous membranes Resp: good air exchange, breathing comfortably with no accessory muscle use CVS: good distal perfusion x 4 MSK: no pitting edema, no clubbing Neuro: non-focal, moving all extremities Psych: cooperative, euthymic mood Mechanical fall, trip and fall Left rib pain accompanied by thoracic back pain Generalized pain/discomfort Head injury Hypertension Hypothyroidism Based on my assessment of this patient, this patient meets a moderate complexity level of care. Patient has a chronic diagnosis of hypertension and hypothyroidism. Hypertension: Continue Amlodipine 10 mg PO QD. Hypothyroidism: Continue Synthroid 50 mcg PO QD. I have reviewed the following internal consultant notes: I have reviewed the results of the following tests: I have ordered the following tests: I have discussed the care of this patient with the following independent historian: I have independently interpreted the following test below: I have discussed the management of this patient with the following physician: This patient has a moderate risk of morbidity due to the following reasons: Patient has 2 or more stable chronic illnessses as outlined above. Objective - Vital Signs Vital signs: Vital Signs Temp 97.4 F L 09/18/22 07:05 Pulse 81 09/18/22 07:05 Resp 16 09/18/22 07:05 BP 137/77 09/18/22 07:05 Pulse Ox 98 09/18/22 07:05 FiO2 Intake & Output 09/17/22 09/18/22 09/18/22 18:59 06:59 18:59 Intake Total 918 237 Output Total 25 Balance 893 237 Intake: Oral 918 237 Output: Urine 25 Other: Voiding Method Urinal Urinal # Voids 2 1 # Bowel Movements 0 - Labs CBC & Chem 7: 09/14/22 05:43 09/14/22 05:43
[2022-09-19] MEDS: PANTOPRAZOLE 40 MG TABLET PO SCH (06:11)
[2022-09-19] MEDS: LEVOTHYROXINE 50 MCG TAB PO SCH (06:11)
[2022-09-19] MEDS: amLODIPine 10 MG TAB PO SCH (08:15)
[2022-09-19] MEDS: LIDOCAINE 5% PATCH TOPICAL SCH (08:16)
[2022-09-19] MEDS: FLUoxetine HCL 20 MG CAP PO SCH (08:16)
[2022-09-19] MEDS: HYDROcodone/APAP 5-325MG 1 EACH TAB PO PRN (10:43)
[2022-09-19 14:30] VITALS: BMI 34.8
--- NOTE | 2022-09-19 14:57 | P.PN ---
Subjective Progress Note Date: 09/19/22 Patient is a 71-year-old male with a past medical history hypertension and hypothyroidism. He presented to the emergency department status post fall at home. Patient reportedly tripped and fell hitting his head when ambulating his to use the restroom. He denied any loss of consciousness. He underwent extensive workup including CT head, CT C-spine, chest x-ray, cervical and thoracic spine CT, brain MRI, cervical and thoracic spine MRI. PT and OT evaluated the patient and recommended SNF. He is pending insurance authorization. 09/18 Patient was seen and examined. No acute events overnight. He reports that he had a bowel movement today. Pain is well controlled with current pain regimen. No new labs done today. He is pending insurance authorization for SNF. His BP is 137/77, HR of 81. 09/19 Patient was seen and examined. No acute events overnight. He is pending insurance authorization for SNF. Gen: awake, alert HEENT: normocephalic, atraumatic, good hearing acuity, moist mucous membranes Resp: good air exchange, breathing comfortably with no accessory muscle use CVS: good distal perfusion x 4 MSK: no pitting edema, no clubbing Neuro: non-focal, moving all extremities Psych: cooperative, euthymic mood Mechanical fall, trip and fall Left rib pain accompanied by thoracic back pain Generalized pain/discomfort Head injury Hypertension Hypothyroidism Based on my assessment of this patient, this patient meets a moderate complexity level of care. Patient has a chronic diagnosis of hypertension and hypothyroidism. Hypertension: Continue Amlodipine 10 mg PO QD. Hypothyroidism: Continue Synthroid 50 mcg PO QD. I have reviewed the following home energy consultant notes: I have reviewed the results of the following tests: I have ordered the following tests: I have discussed the care of this patient with the following independent historian: I have independently interpreted the following test below: I have discussed the management of this patient with the following physician: This patient has a moderate risk of morbidity due to the following reasons: Patient has 2 or more stable chronic illnesses as outlined above. Objective - Vital Signs Vital signs: Vital Signs Temp 97.6 F 09/19/22 13:41 Pulse 89 09/19/22 13:41 Resp 16 09/19/22 13:41 BP 131/72 09/19/22 13:41 Pulse Ox 97 09/19/22 13:41 FiO2 Intake & Output 09/18/22 09/19/22 09/19/22 18:59 06:59 18:59 Intake Total 237 Balance 237 Weight 119.748 kg Intake: Oral 237 Other: # Voids 2 2 1 # Bowel Movements 2 - Labs CBC & Chem 7: 09/14/22 05:43 09/14/22 05:43
[2022-09-19] MEDS: IBUPROFEN 400 MG TAB PO PRN (21:39)
[2022-09-20] MEDS: PANTOPRAZOLE 40 MG TABLET PO SCH (06:03)
[2022-09-20] MEDS: LEVOTHYROXINE 50 MCG TAB PO SCH (06:03)
[2022-09-20 07:38] VITALS: BP 147/74; PULSE 81; RESP 17; TEMP 97.7
[2022-09-20] MEDS: amLODIPine 10 MG TAB PO SCH (08:24)
[2022-09-20] MEDS: FLUoxetine HCL 20 MG CAP PO SCH (08:24)
[2022-09-20] MEDS: LIDOCAINE 5% PATCH TOPICAL SCH (08:24)
[2022-09-20] MEDS: HYDROcodone/APAP 5-325MG 1 EACH TAB PO PRN (10:40)
--- NOTE | 2022-09-20 12:56 | P.DS ---
Providers Date of admission: 09/12/22 23:50 Expected date of discharge: 09/20/22 Attending physician: Carlos Graf MD Consults: 09/14/22 13:41 Consult Physician Routine Consulting Provider: Kayode Valderrama Consult Reason/Comments: Left rib pain and thoracic back pain Do you want consulting provider notified?: Already Contacted Primary care physician: [facility] Course: Patient is a 71-year-old male with a past medical history hypertension and hypothyroidism. He presented to the emergency department status post fall at home. Patient reportedly tripped and fell hitting his head when ambulating his to use the restroom. He denied any loss of consciousness. He underwent extensive workup including CT head, CT C-spine, chest x-ray, cervical and tho racic spine CT, brain MRI, cervical and thoracic spine MRI. PT and OT evaluated the patient and recommended SNF. He is pending insurance authorization. MRI brain showed no infarct and left scalp hematoma. MRI C and T spine showed mild foraminal stenosis C5-C6 Orthopedic surgery recommended outpatient follow up. 09/18 Patient was seen and examined. No acute events overnight. He reports that he had a bowel movement today. Pain is well controlled with current pain regimen. No new labs done today. He is pending insurance authorization for SNF. His BP is 137/77, HR of 81. 09/19 Patient was seen and examined. No acute events overnight. He is pending insurance authorization for SNF. Unfortunately, patient's insurance declined SNF. Patient elected to go home and declined home health. He has no complaints on the day of discharge. Pertinent studies as above. Gen: awake, alert HEENT: normocephalic, atraumatic, good hearing acuity, moist mucous membranes Resp: good air exchange, breathing comfortably with no accessory muscle use CVS: good distal perfusion x 4 MSK: no pitting edema, no clubbing Neuro: non-focal, moving all extremities Psych: cooperative, euthymic mood Discharge Diagnosis: Mechanical fall, trip and fall Left rib pain accompanied by thoracic back pain Generalized pain/discomfort Head injury Hypertension Hypothyroidism This complex discharge took 35 minutes to complete. Patient Condition at Discharge: Stable Plan - Discharge Summary New Discharge Prescriptions: New Lidocaine 5% Patch [Lidoderm 5% Patch] 1 patch TOPICAL DAILY #30 patch HYDROcodone/APAP 5-325MG [[place] 5-325] 1 each PO Q4HR PRN #18 tab PRN Reason: Moderate Pain (Scale 4 To 6) Continue Omeprazole [PriLOSEC] 20 mg PO DAILY allopurinoL [Allopurinol] 100 mg PO DAILY amLODIPine [Norvasc] 10 mg PO DAILY FLUoxetine HCL 20 mg PO DAILY Indomethacin [Indocin] 50 mg PO TID PRN PRN Reason: Pain Levothyroxine Sodium [Synthroid] 50 mcg PO DAILY Discharge Medication List Omeprazole [PriLOSEC] 20 mg PO DAILY 06/21/16 [History] allopurinoL [Allopurinol] 100 mg PO DAILY 06/21/16 [History] FLUoxetine HCL 20 mg PO DAILY 09/13/22 [History] Indomethacin [Indocin] 50 mg PO TID PRN 09/13/22 [History] Levothyroxine Sodium [Synthroid] 50 mcg PO DAILY 09/13/22 [History] amLODIPine [Norvasc] 10 mg PO DAILY 09/13/22 [History] HYDROcodone/APAP 5-325MG [[place] 5-325] 1 each PO Q4HR PRN #18 tab 09/20/22 [Rx] Lidocaine 5% Patch [Lidoderm 5% Patch] 1 patch TOPICAL DAILY #30 patch 09/20/22 [Rx] Follow up Appointment(s)/Referral(s): Kayode Valderrama DO [Doctor of Osteopathic Medicine] - 1 Week [facility]inic [Primary Care Provider] - 1-2 days Discharge Disposition: HOME SELF-CARE
== END 2022-09-20 14:28 | disposition home or self-care (01) ==
LOC: EC 18:54 → 6NMEDSUR 23:50
PROVIDERS: ADMIT Internal Medicine; ATTEND Internal Medicine
DX: S00.83XA Contusion of other part of head, initial encounter (principal); M51.34 Other intervertebral disc degeneration, thoracic region; R07.81 Pleurodynia; I10 Essential (primary) hypertension; E03.9 Hypothyroidism, unspecified; M48.02 Spinal stenosis, cervical region; M47.812 Spondylosis without myelopathy or radiculopathy, cervical region; M50.320 Other cervical disc degeneration, mid-cervical region, unspecified level; K21.9 Gastro-esophageal reflux disease without esophagitis; M10.9 Gout, unspecified; D64.9 Anemia, unspecified; E66.9 Obesity, unspecified; Z68.34 Body mass index [BMI] 34.0-34.9, adult; F41.9 Anxiety disorder, unspecified; W01.0XXA Fall on same level from slipping, tripping and stumbling without subsequent striking against object, initial encounter; Y92.002 Bathroom of unspecified non-institutional (private) residence as the place of occurrence of the external cause; Z79.890 Hormone replacement therapy; Z79.899 Other long term (current) drug therapy; Z85.46 Personal history of malignant neoplasm of prostate; Z87.11 Personal history of peptic ulcer disease; Z85.820 Personal history of malignant melanoma of skin; Z85.048 Personal history of other malignant neoplasm of rectum, rectosigmoid junction, and anus; Z92.21 Personal history of antineoplastic chemotherapy; Z92.3 Personal history of irradiation; Z87.891 Personal history of nicotine dependence; Z90.49 Acquired absence of other specified parts of digestive tract; Z98.42 Cataract extraction status, left eye; Z98.41 Cataract extraction status, right eye; Z98.890 Other specified postprocedural states; Z80.42 Family history of malignant neoplasm of prostate; Z80.1 Family history of malignant neoplasm of trachea, bronchus and lung
CPT/HCPCS: 96376 ×4; 96375; 96374; 99285; 97116; 97530 ×5; 97162; 97166; 80053 ×2; 85025; 85027; 81003; 71101; 71046; 72128; 72125 ×2; 70450; 70551; 72141; 72146; G0378 ×8; J2060; J2270 ×3; J2360; J1885 ×3

== ENCOUNTER → 2023-02-18 | Outpatient (CLI) | payer OTHER | END | disposition home or self-care (01) | LOC: LABWHC1 16:08 | PROVIDERS: ATTEND Orthopaedic Surgery | DX: Z01.812 Encounter for preprocedural laboratory examination (principal); Z22.322 Carrier or suspected carrier of Methicillin resistant Staphylococcus aureus; M17.12 Unilateral primary osteoarthritis, left knee | CPT/HCPCS: 87070 ==

== ENCOUNTER → 2023-04-15 | Outpatient (CLI) | payer OTHER ==
[2023-04-15 19:04] LABS: ALT 32 U/L (10-49); AST 24 U/L (14-35); Albumin 4.5 g/dL (3.8-4.9); Alkaline Phosphatase 107 U/L (41-126); BUN/Creat Ratio 24.91 Ratio (12.00-20.00); Blood Urea Nitrogen 27.4 mg/dL (9.0-27.0); Calcium 9.2 mg/dL (8.7-10.3); Carbon Dioxide 18.4 mmol/L (21.6-31.8); Chloride 105 mmol/L (96-109); Chol/HDL Ratio 2.77 Ratio; Glucose 102 mg/dL (70-110); Sodium 139 mmol/L (135-145); Total Bilirubin 0.2 mg/dL (0.3-1.2); Total Protein 7.5 g/dL (6.2-8.2)
== END | disposition home or self-care (01) ==
LOC: LABWHC1 14:07
PROVIDERS: ATTEND Internal Medicine Interventional Cardiology
DX: E78.2 Mixed hyperlipidemia (principal)
CPT/HCPCS: 36415; 80053; 80061

== ENCOUNTER → 2023-04-24 | Outpatient (CLI) | payer OTHER ==
[2023-04-24 13:57] LABS: African American GFR (CKD) >90 (>60 ml/min/1.73 sqM); Anion Gap 10 mmol/L; Blood Urea Nitrogen 22 mg/dL (9-20); Calcium 9.2 mg/dL (8.4-10.2); Carbon Dioxide 21 mmol/L (22-30); Chloride 113 mmol/L (98-107); Glucose 101 mg/dL (74-99); Non-African American GFR(CKD) 80 (>60 ml/min/1.73 sqM); Potassium 4.2 mmol/L (3.5-5.1); Sodium 144 mmol/L (137-145)
[2023-04-24 14:03] LABS: NT-Pro-B-Type Natriuretic Pept 100 pg/mL
== END | disposition home or self-care (01) ==
LOC: LABWHC1 13:04
PROVIDERS: ATTEND Internal Medicine Interventional Cardiology
DX: R60.0 Localized edema (principal)
CPT/HCPCS: 36415; 80048; 83880

== ENCOUNTER → 2023-05-08 | Outpatient (CLI) | payer OTHER ==
[2023-05-08 18:33] LABS: INR 0.99 sec (0.93-1.11); Prothrombin Time 10.7 sec (9.9-11.9)
[2023-05-08 18:56] LABS: Calcium 9.3 mg/dL (8.7-10.3); Carbon Dioxide 21.4 mmol/L (21.6-31.8); Chloride 106 mmol/L (96-109); Glucose 106 mg/dL (70-110); Potassium 4.6 mmol/L (3.5-5.5); Sodium 143 mmol/L (135-145)
[2023-05-08 19:17] LABS: Basophils # (A) 0.03 X 10*3/uL (0.00-0.10); Basophils % (A) 0.5 %; Eosinophils # (A) 0.18 X 10*3/uL (0.04-0.35); Eosinophils % (A) 2.8 %; HCT 39.3 % (39.6-50.0); Lymphocytes # (A) 1.32 X 10*3/uL (0.90-5.00); Lymphocytes % (A) 20.6 %; MCH 31.3 pg (27.0-32.0); MCHC 33.1 g/dL (32.0-37.0); MCV 94.5 FL (80.0-97.0); Mean Platelet Volume 10.5 FL (9.5-12.2); Monocytes # (A) 0.62 X 10*3/uL (0.20-1.00); Monocytes % (A) 9.7 %; NRBC Per 100 WBC 0 X 10*3/uL (0.00-0.01); Neutrophils # (A) 4.23 X 10*3/uL (1.80-7.70); Neutrophils % (A) 65.9 %; Platelet Count 267 X 10*3/uL (140-440); RBC 4.16 X 10*6/uL (4.40-5.60); RDW 13.8 % (11.5-14.5); WBC 6.41 X 10*3/uL (4.50-10.00)
== END | disposition home or self-care (01) ==
LOC: LABPAT 13:28
PROVIDERS: ATTEND Orthopaedic Surgery
DX: Z01.812 Encounter for preprocedural laboratory examination (principal); M17.12 Unilateral primary osteoarthritis, left knee; Z22.322 Carrier or suspected carrier of Methicillin resistant Staphylococcus aureus
CPT/HCPCS: 80048; 85025; 85610; 87070

== ENCOUNTER 2023-06-04 05:46 | Day surgery (SDC) | payer OTHER ==
[2023-05-29 10:35] VITALS: BMI 38.0
--- NOTE | 2023-06-03 08:07 | P.HPOR ---
History of Present Illness H&P Date: 06/03/23 Chief Complaint: Left knee pain The patient is a 72-year-old retired male who presents with progressive left knee pain for the past several years. It's worsened recently. He's having pain with weightbearing activities that limits him significantly. He notes intermittent swelling and stiffness. He's tried medications along with injections and use of a cane without much relief. Review of Systems As per HPI Past Medical History Past Medical History: Cancer, GERD/Reflux, Hypertension, Thyroid Disorder Additional Past Medical History / Comment(s): HX DUODENAL ULCER, PROSTATE CANCER (SURGERY), MELANOMA-no radiation or chemo ., GOUT, INFECTION AFTER WRIST SURGERY AND HARDWARE REMOVED AND CAST WAS APPLIED. 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 History of Any Multi-Drug Resistant Organisms: None Reported Past Surgical History: Appendectomy, Orthopedic Surgery, Prostate Surgery, Tonsillectomy Additional Past Surgical History / Comment(s): COLONOSCOPY, EGD , RIGHT ROTATER CUFF, FX RIGHT WRIST SURGERY, sweta cataract surgery,prostatectomy Past Anesthesia/Blood Transfusion Reactions: No Reported Reaction Additional Past Anesthesia/Blood Transfusion Reaction / Comment(s): no problems with prior blood transfusion Smoking Status: Former smoker - Past Family History Father Family Medical History: Cancer Additional Family Medical History / Comment(s): Prostate cancer. Mother Family Medical History: Cancer Additional Family Medical History / Comment(s): Lung cancer. Brother(s) Family Medical History: Cancer Additional Family Medical History / Comment(s): Prostate cancer. Medications and Allergies Home Medications Medication Instructions Recorded Confirmed Type Omeprazole [PriLOSEC] 20 mg PO QAM 06/21/16 05/29/23 History allopurinoL [Allopurinol] 100 mg PO QAM 06/21/16 05/29/23 History Levothyroxine Sodium [Synthroid] 50 mcg PO QAM 09/13/22 05/29/23 History Atorvastatin [Lipitor] 20 mg PO DAILY 05/29/23 05/29/23 History Losartan Potassium 50 mg PO QAM 05/29/23 05/29/23 History Metoprolol Succinate [Metoprolol 25 mg PO QAM 05/29/23 05/29/23 History Succinate ER] Allergies Allergy/AdvReac Type Severity Reaction Status Date / Time No Known Allergies Allergy Verified 05/29/23 10:04 Physical Examination - Knee left Appearance: effusion Effusion grade: grade 2 Varus alignment in stance: 5 degrees Tenderness with palpation: anterior, medial Pain: throughout ROM Gait: limping, uses cane ROM: extension: -15 degrees ROM: flexion: 100 degrees Crepitus with motion: Yes Strength: extension: 5/5 Strength: flexion: 5/5 Meniscal tests: medial meniscal tests: positive, medial joint line pain: positive Results Patient is a well-developed well-nourished male approximate 6 foot tall, 265 pounds of endomorphic habitus. HEENT exam is nonfocal, neck supple. He has painless passive motion of his left hip. Straight leg raise negative. On examination of the left knee, he has lateral greater than medial joint line tenderness. Collaterals are stable, Michael was negative, Edouard's is equivocal. His distal neurovascular appears intact in the left lower extremity. Assessment and Plan Assessment: Left knee severe tricompartmental osteoarthrosis History of rectal cancer Plan: I talked with patient at length regarding his condition along with treatment options. At this point is quite limited because of pain related to his left knee osteoarthrosis despite previous conservative measures. After a thorough discussion he opts to proceed with surgery. We will plan to proceed with left total knee arthroplasty. Risks and benefits were discussed at length in layman's terms. We will institute DVT prophylaxis postoperatively.
[~2023-06-04 05:46] MED LIST changes: -LACTATED RINGERS 1,000 ML IV SCH; +TRANEXAMIC 1,000 MG/100ML-NACL 1,000 MG in SALINE 1 100ML.BAG IVPB PRN
[2023-06-04] MEDS: ACETAMINOPHEN TAB 500 MG TAB PO PRN (06:54)
[2023-06-04] MEDS: MELOXICAM 7.5 MG TAB PO PRN (06:54)
[2023-06-04] MEDS: MIDAZOLAM 2 MG/2 ML VIAL IVP ONE (06:57)
[2023-06-04] MEDS ORDERED: MIDAZOLAM 2 MG/2 ML VIAL IV PRN (07:00)
--- NOTE | 2023-06-04 07:22 | P.ANPRN ---
Procedure Note - Anesthesia - Nerve Block Performed Left iPack Single Time Out Performed: Yes Date of Procedure: 06/04/23 Procedure Start Time: 06:56 Procedure Stop Time: 07:00 Location of Patient: PreOp Indication: Acute Post-Operative Pain, Analgesia, Requested by Surgeon Sedation Type: Sedate with meaningful contact maintained Preparation: Sterile Prep Position: Right Lateral Catheter: None Needle Types: Pajunk Needle Gauge: 21 Ultrasound used to visualize needle placement: Yes Ultrasound used to observe medication spread: Yes Injectate: 0.5% Ropivacaine (see comment for volume) ([id number]) Blood Aspirated: No Pain Paresthesia on Injection Noted: No Resistance on Injection: Normal Image Stored and Saved: Yes Events: Uneventful and Well Tolerated
[2023-06-04] MEDS: LACTATED RINGERS 1,000 ML IV SCH (07:23)
[2023-06-04] MEDS: DEXAMETHASONE SOD PHOSPHATE 4 MG/ML 1 ML VIAL IV ONE (07:24)
--- NOTE | 2023-06-04 07:24 | P.ANPRN ---
Procedure Note - Anesthesia - Nerve Block Performed Left Adductor Canal Infusion Time Out Performed: Yes Date of Procedure: 06/04/23 Procedure Start Time: 07:01 Procedure Stop Time: 07:10 Location of Patient: PreOp Indication: Acute Post-Operative Pain, Analgesia, Requested by Surgeon Sedation Type: Sedate with meaningful contact maintained Preparation: Sterile Prep Position: Supine Catheter: Indwelling Needle Types: On-Q Ultrasound used to visualize needle placement: Yes Ultrasound used to observe medication spread: Yes Injectate: 0.5% Ropivacaine (see comment for volume) ([id number] 4mg) Blood Aspirated: No Pain Paresthesia on Injection Noted: No Resistance on Injection: Normal Image Stored and Saved: Yes Events: Uneventful and Well Tolerated
[2023-06-04] MEDS: ONDANSETRON 4 MG/2 ML VIAL IVP ONE (07:25)
[2023-06-04] MEDS ORDERED: TRANEXAMIC 1,000 MG/100ML-NACL PREMIX BAG ONE (07:27)
[2023-06-04] MEDS ORDERED: fentaNYL (PF) 50 MCG/ML 2 ML AMP ONE (07:27)
[2023-06-04] MEDS ORDERED: PROPOFOL 10 MG/ML 20 ML VIAL IV ONE (07:27)
[2023-06-04] MEDS ORDERED: ROPIVACAINE 5 MG/ML 30 ML VIAL ONE (07:27)
[2023-06-04] MEDS ORDERED: NEOSTIGMINE 1 MG/ML 10 ML VIAL ONE (07:27)
[2023-06-04] MEDS ORDERED: ROCURONIUM 10 MG/ML (5 ML VIAL) IV ONE (07:27)
[2023-06-04] MEDS ORDERED: LIDOCAINE 1% INJ 10MG/ML (20 ML MDV) ONE (07:27)
[2023-06-04] MEDS ORDERED: MIDAZOLAM 2 MG/2 ML VIAL ONE (07:27)
[2023-06-04] MEDS ORDERED: GLYCOPYRROLATE 0.2 MG/ML 2 ML VIAL ONE (07:27)
[2023-06-04] MEDS ORDERED: SUCCINYLCHOLINE CHLORIDE 200 MG/10 ML VIAL IV ONE (07:27)
[2023-06-04] MEDS ORDERED: DEXAMETHASONE SOD PHOSPHATE 4 MG/ML 1 ML VIAL ONE (07:27)
[2023-06-04] MEDS ORDERED: HYDROmorphone (PF) 1 MG/ML ONE (07:27)
[2023-06-04] MEDS: ceFAZolin 3 GM in SODIUM CHLORIDE 0.9% 100 ML IVPB PRN (07:30)
[2023-06-04] MEDS: ceFAZolin 1,000 MG in SODIUM CHLORIDE 0.9% 1,000 ML IRRIGATION ONE (08:07)
[2023-06-04] MEDS: LACTATED RINGERS 1,000 ML IV ONE (08:16)
[2023-06-04] MEDS ORDERED: MAGNESIUM HYDROXIDE 2,400 MG/30 ML CUP PO PRN (09:23)
[2023-06-04] MEDS ORDERED: HYDROmorphone 0.5 MG/0.5 ML SYRINGE IVP PRN (09:23)
[2023-06-04] MEDS ORDERED: NALOXONE 0.4 MG/ML 1 ML VIAL IV PRN (09:23)
[2023-06-04] MEDS ORDERED: HYDROcodone/APAP 5-325MG 1 EACH TAB PO PRN (09:23)
[2023-06-04] MEDS ORDERED: hydrOXYzine pamoate 25 MG CAP PO PRN (09:23)
--- NOTE | 2023-06-04 09:44 | P.OP ---
Date of Procedure: 06/04/23 Preoperative Diagnosis: Left knee severe tricompartmental osteoarthrosis Postoperative Diagnosis: Same Procedure(s) Performed: Left total knee arthroplastycementedposterior stabilized Implants: Depuy Attune size 6 cemented femoral component, size 5 cemented tibial component with a 14 x 50 mm stem, 10 mm articular surface, 38 mm cemented patellar component. This is a posterior stabilized implant. Anesthesia: [facility], [facility] Surgeon: Erwin Cruz Load Dispatcher Local #1: Viraj Pelaez Estimated Blood Loss (ml): 50 Pathology: none sent Condition: stable Disposition: PACU Indications for Procedure: The patient's a 72-year-old male who presents with progressive left knee pain secondary to osteoarthrosis despite conservative measures. A discussion of the risks and benefits of operative intervention versus continued conservative adriana ures was made with the patient. He opted to proceed with surgery. Operative risks to include infection, neurovascular injury, development of blood clots, possible component loosening/failure and possible need for subsequent procedures was discussed. Informed consent was obtained. Operative Findings: As below Description of Procedure: The patient was brought to the operating room, and after induction of spinal anesthesia the left lower extremity was prepped and draped in a normal fashion. The tourniquet was inflated to 270 mm marker. A longitudinal incision extending 3 finger breaths above the superior pole of patella extending to the medial aspect the tibial tubercle was then made. The skin and subcutaneous tissues were divided sharply. Electrocautery was used for hemostasis. A medial parapatellar arthrotomy was performed. The medial soft tissues to include the superficial and deep portions of the medial collateral ligament were elevated subperiosteally. The patella was everted. A portion of the retropatellar fat pad was excised sharply. The anterior cruciate ligament was sacrificed. Blunt retractors were placed. A starting hole was made in the distal femur 1 cm anterior to the posterior cruciate ligament origin. An intramedullary femoral guide was then inserted planning on 5 valgus distal cut with 9 mm distal resection. The cutting block was pinned in place. The distal cut was then made. The posterior referencing sizing guide was utilized. I felt size 6 was most appropriate. 3 of external rotation was built into the system and verified off the trans-epicondylar axis and the posterior condyles. The cutting block was pinned in place. The anterior, posterior, and chamfer cuts then made. Bone fragments were removed. The intercondylar guide was placed and the notch cut was made with a sagittal saw. The bone block was removed in one fragment. The trial component was then placed. There is good anterior to posterior and medial to lateral fit. The distal peg holes were drilled. The trial component was removed. Attention was then paid towards preparing the proximal tibia. An extra medullary guide was utilized in line with the tibial shaft and second metatarsal distally. I planned on 4 mm resection from the medial compartment. The cutting block was pinned in place. The proximal tibial cut was then made. The bone was removed in one fragment. The remnants of the medial and lateral menisci were excised at the capsular junction with electrocautery. The tibia sized most appropriately at size 5. The trial femoral and tibial components were placed along with a 10 mm articular surface. I was able to obtain full flexion and extension with internal and external rotation. After several flexion and extension cycles, the tibial rotation was marked with electrocautery line with the medial one third of the tibial tubercle. Attention was then paid towards preparing the patella. A patella reamer was utilized taking stem to 14 mm of bone stock. A good flush cut was made. The patella sized most appropriately 38 mm. The peg holes were drilled. The trial components placed. I had good patellofemoral tracking with no hands technique. The trial components were then removed. The tibia was prepared in the appropriate rotation with appropriate drill and keel punch. The posterior osteophytes were removed with a curved osteotome. The flexion and extension gaps were checked and felt to be symmetric at 10 mm. A trial components were then removed. The bony surfaces were prepared with pulsatile lavage and dried. The tibial component was then cemented place was fully seated. Excess cement was removed. The femoral component cemented place and was fully seated. Excess cement was removed. The trial 10 mm articular surface was placed and the knee was put in full extension. The patella component was cemented place. After the cement had sufficiently hardened, the knee was again taken through a range of motion. Again I was able to obtain full flexion and extension with varus and valgus stress. The trial 10 mm articular surface was removed and the final one inserted. This was fully seated. Care was taken to avoid any soft tissue interposition. Pulsatile lavage was again utilized. The medial parapatellar arthrotomy was closed with #2 Ethibond suture. The tourniquet was deflated with approximately 60 minutes total tourniquet time. Final hemostasis was obtained with the cautery. There was minimal bleeding therefore a deep drain was not pl aced. The subcutaneous tissues were reapproximated with interrupted 2-0 Vicryl sutures. The skin was reapproximated with 3-0 subcuticular strata fix suture. Skin tape and adhesive was applied. A sterile dressing was applied. The patient was awoken from sedation and transferred to recovery room in good condition. Blood loss was estimated at 50 mL. No complications were incurred. Sponge and needle counts were correct at the end of the case. Viraj RAMIREZ assisted during the major components of this case to include exposure, bone resection, implantation, and closure.
[2023-06-04] MEDS: ROPIVACAINE 1,100 MG, SODIUM CHLORIDE 0.9% 500 ML 330 ML, EMPTY PAIN BALL 1 EACH MISCELLANE PRN (10:05)
[2023-06-04] MEDS: HYDROmorphone 0.5 MG/0.5 ML SYRINGE IVP PRN ×2 (10:25→14:21)
--- NOTE | 2023-06-04 10:26 | XR ---
EXAMINATION TYPE: XR knee limited LT DATE OF EXAM: 06/04/2023 COMPARISON: NONE TECHNIQUE: Two views submitted HISTORY: Post op FINDINGS: There is a prosthetic knee in anatomic alignment. There is soft tissue edema and soft tissue emphys jorgito compatible with recent surgery. IMPRESSION: 1. Postoperative change.
[2023-06-04] MEDS: HYDROcodone/APAP 7.5-325MG 1 EACH TAB PO PRN (16:17)
[2023-06-04] MEDS: ceFAZolin 3 GM in SODIUM CHLORIDE 0.9% 100 ML IVPB SCH (16:17)
--- NOTE | 2023-06-04 17:36 | P.CONS ---
History of Present Illness - Reason for Consult Consult date: 06/04/23 cardiomyopathy Requesting physician: Erwin Cruz - Chief Complaint knee pain - History of Present Illness Patient is a 72-year-old male with hypertension, nonischemic cardiomyopathy with ejection fraction 35% gout, hypothyroidism, GERD and osteoarthritis who presented for left total knee arthroplasty. Patient seen and examined at bedside.Patient seen and examined at bedside. He is doing well postoperatively. He denies any lightheadedness, dizziness, shortness of breath, or nausea. He denies any recent acute illnesses. He was diagnosed with cardiomyopathy back in March after seeing Dr. Rodriguez. At that point in time metoprolol was added to his losartan. He denies any issues since then. He reports he was having some lower extremity edema but with discontinuation of the Norvasc and transition to metoprolol this has improved significantly. He has been using a walker at home due to the pain. He decided to seek knee replacement as he had unrelenting pain limiting his activities of daily living. He failed multiple knee aspirations and a short course of physical therapy. Vital signs reviewed General: nontoxic, no distress, appears at stated age Derm: warm, dry Eyes: EOMI, no lid lag, anicteric sclera, pupils equal round reactive to light ENT: Nose and ears atraumatic Cardiovascular: S1S2 reg, no murmur, no edema Lungs: clear to auscultation bilateral, no rhonchi, no rales, no wheeze, no accessory muscle use Abdominal: soft, nontender to palpation, no guarding Ext: no gross muscle atrophy, no contractures Neuro: CN II-XII grossly intact, No focal neuro deficits Psych: Alert, oriented, appropriate affect Assessment/Plan: 72-year-old male status post left total knee arthroplasty Nonischemic cardiomyopathy with ejection fraction 35% Hypertension HLD -Resume metoprolol 25 mg daily, losartan 50 mg daily -Lipitor 20 mg daily Hypothyroidism -Levothyroxine 50 mcg daily Class III obesity with BMI 39.5 -Increase physical activity after knee replacement. GERD Imaging: Knee x-ray: Appropriate postoperative changes Data Review: Preop labs reviewed with creatinine 1.1 and hemoglobin 13 Thank you for allowing us to participate in the care of this pleasant patient. Do not hesitate to contact us with questions. Someone can be reached from the [facility] hospitalist group all hours of the day at [phone] or via Smart[employer]. This dictation was prepared using [employer] voice recognition software. Though every attempt is made to correct errors during dictation some may still exist. Past Medical History Past Medical History: Cancer, GERD/Reflux, Hypertension, Thyroid Disorder Additional Past Medical History / Comment(s): HX DUODENAL ULCER, PROSTATE CANCER (SURGERY), MELANOMA-no radiation or chemo ., GOUT, INFECTION AFTER WRIST SURGERY AND HARDWARE REMOVED AND CAST WAS APPLIED. 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 History of Any Multi-Drug Resistant Organisms: None Reported Past Surgical History: Appendectomy, Orthopedic Surgery, Prostate Surgery, Tonsillectomy Additional Past Surgical History / Comment(s): COLONOSCOPY, EGD , RIGHT ROTATER CUFF, FX RIGHT WRIST SURGERY, sweta cataract surgery,prostatectomy Past Anesthesia/Blood Transfusion Reactions: No Reported Reaction Additional Past Anesthesia/Blood Transfusion Reaction / Comm: no problems with prior blood transfusion Smoking Status: Former smoker - Past Family History Father Family Medical History: Cancer Additional Family Medical History / Comment(s): Prostate cancer. Mother Family Medical History: Cancer Additional Family Medical History / Comment(s): Lung cancer. Brother(s) Family Medical History: Cancer Additional Family Medical History / Comment(s): Prostate cancer. Medications and Allergies Home Medications Medication Instructions Recorded Confirmed Type Omeprazole [PriLOSEC] 20 mg PO QAM 06/21/16 05/29/23 History allopurinoL [Allopurinol] 100 mg PO QAM 06/21/16 05/29/23 History Levothyroxine Sodium [Synthroid] 50 mcg PO QAM 09/13/22 05/29/23 History Atorvastatin [Lipitor] 20 mg PO DAILY 05/29/23 05/29/23 History Losartan Potassium 50 mg PO QAM 05/29/23 05/29/23 History Metoprolol Succinate [Metoprolol 25 mg PO QAM 05/29/23 05/29/23 History Succinate ER] Allergies Allergy/AdvReac Type Severity Reaction Status Date / Time No Known Allergies Allergy Verified 06/04/23 06:19 Physical Exam Osteopathic Statement: *. No significant issues noted on an osteopathic structural exam other than those noted in the History and Physical/Consult. Vitals: Vital Signs Temp Pulse Resp BP Pulse Ox 03/19/24 11:00 74 16 162/74 97 06/04/23 10:45 81 16 146/67 97 06/04/23 10:30 77 16 143/63 95 06/04/23 10:15 77 16 158/72 97 06/04/23 10:00 85 16 169/75 97 06/04/23 09:57 89 16 167/85 97 06/04/23 09:42 97.2 F L 98 16 145/82 95 06/04/23 07:18 87 16 153/73 97 06/04/23 06:37 98.1 F 90 16 163/73 93 L Intake and Output 06/03/23 06/04/23 06/04/23 22:59 06:59 14:59 Intake Total 2899 Output Total 50 Balance 2849 Intake: IV 2899 Output: Estimated Blood Loss 50 Other: Weight 132.2 kg
[2023-06-04] MEDS: SENNOSIDES-DOCUSATE SODIUM 1 EACH TAB PO SCH (22:40)
[2023-06-05] MEDS: LEVOTHYROXINE 50 MCG TAB PO SCH (05:52)
[2023-06-05] MEDS: PANTOPRAZOLE 40 MG TABLET PO SCH (05:53)
[2023-06-05] MEDS: allopurinoL 100 MG TAB PO SCH (08:33)
[2023-06-05] MEDS: ATORVASTATIN 20 MG TAB PO SCH (08:34)
[2023-06-05] MEDS: METOPROLOL SUCCINATE (ER) 25 MG TAB.ER.24H PO SCH (08:34)
[2023-06-05] MEDS: RIVAROXABAN 10 MG TAB PO SCH (08:34)
[2023-06-05 08:46] LABS: Basophils # (A) 0.01 X 10*3/uL (0.00-0.10); Basophils % (A) 0.1 %; Eosinophils # (A) 0.01 X 10*3/uL (0.04-0.35); Eosinophils % (A) 0.1 %; HCT 30.8 % (39.6-50.0); Lymphocytes # (A) 0.94 X 10*3/uL (0.90-5.00); Lymphocytes % (A) 10.2 %; MCH 30.4 pg (27.0-32.0); MCHC 32.5 g/dL (32.0-37.0); MCV 93.6 FL (80.0-97.0); Mean Platelet Volume 10.2 FL (9.5-12.2); Monocytes % (A) 14.1 %; NRBC Per 100 WBC 0 X 10*3/uL (0.00-0.01); Neutrophils # (A) 6.93 X 10*3/uL (1.80-7.70); Neutrophils % (A) 75.3 %; Platelet Count 238 X 10*3/uL (140-440); RBC 3.29 X 10*6/uL (4.40-5.60); RDW 14.2 % (11.5-14.5); WBC 9.21 X 10*3/uL (4.50-10.00)
[2023-06-05 09:00] VITALS: BP 130/66; PULSE 81; RESP 17; TEMP 98.1
--- NOTE | 2023-06-05 09:57 | P.DS ---
Providers Date of admission: 06/04/2023 Expected date of discharge: 06/05/23 Attending physician: Erwin Cruz Consults: 06/04/23 09:27 Consult Physician Routine Consulting Provider: Thomas Mckeon Consult Reason/Comments: Medical Management s/p left total knee arhtroplasty Do you want consulting provider notified?: Yes Primary care physician: [facility] Hospital Course: Date of admission: 06/04/2023 Date of discharge: 06/05/2023 Admission diagnosis: Left knee osteoarthritis Discharge diagnosis: Same Attending physician: Dr. Cruz Surgical procedures: Left total knee arthroplasty Brief history: Patient is a 72-year-old male with a history of progressive primary left knee osteoarthritis. At this point patient has failed conservative treatment measures and has opted to proceed with a elective left total knee arthroplasty. Hospital course: Details of patient's surgery can be found in operative report. Patient tolerated the procedure well and was subsequently transported to orthopedic floor. Patient's orthopeidc and medical care was provided daily. Patient had daily laboratory tests performed for evaluation of overall blood counts. Patient had daily physical therapy to include strengthening range of motion as well as education with walker ambulation. Patient was treated with Xarelto for their postoperative DVT prophylaxis during their inpatient stay. Patient was noted to have a relatively uneventful postoperative course. Patient reported satisfactory pain control with oral pain medications by postoperative day 1. Patient showed satisfactory progress with physical therapy. Patient moved steadily through the program and had no difficulty meeting the goals by postoperative day 1. Given patient's otherwise satisfactory course and having met physical therapy goals, plan is to discharge patient home with health services on postoperative day 1. Discharge condition/disposition: Patient will be discharged home with health services in stable condition. Discharge medications: Instructions are given on resumption of patient's normal daily medications per primary care recommendation, in addition patient will be prescribed [place]; senna; Eliquis 2.5 mg twice a day 2 weeks. Discharge instructions: 1. Wound care and infection precautions, keep incision dry and covered while showering, no lotions, creams, moisturizers. No soaking, tubs, pools, hottubs. Do not scrub over the incision. 2. Weight-bear as tolerated with walker / cane until follow-up. 3. Ice and elevate when necessary. Do not exceed 20 minutes per hour with ice pack. 4. Utilize compression sleeve until seen at first follow up appointment. 5. Visiting nursing care. 6. Home physical therapy including home CPM. 7. Pain meds and anticoagulants per prescription. 8. Pain medication has potential to cause constipation. Increase oral fluid and fiber intake. Contact primary care provider if you have not had a bowel movement within 48 hours after discharge 9. No anti-inflammatory medication until discussed at first post operative visit, this including Motrin, Aleve, Mobic, Diclofenac. 10. Follow up in office at 2 weeks postop with Desean Vega PA-C / Viraj Pelaez PA-C 11. Follow up with your primary care doctor 7-10 days after discharge. 12. Contact [facility] with any questions, . Assessment: Left knee osteoarthritis Procedures: Left total knee arthroplasty Patient Condition at Discharge: Good Plan - Discharge Summary Discharge Rx Participant: Yes New Discharge Prescriptions: No Action Omeprazole [PriLOSEC] 20 mg PO QAM allopurinoL [Allopurinol] 100 mg PO QAM Metoprolol Succinate [Metoprolol Succinate ER] 25 mg PO QAM Levothyroxine Sodium [Synthroid] 50 mcg PO QAM Losartan Potassium 50 mg PO QAM Atorvastatin [Lipitor] 20 mg PO DAILY Discharge Medication List Omeprazole [PriLOSEC] 20 mg PO QAM 06/21/16 [History] allopurinoL [Allopurinol] 100 mg PO QAM 06/21/16 [History] Levothyroxine Sodium [Synthroid] 50 mcg PO QAM 09/13/22 [History] Atorvastatin [Lipitor] 20 mg PO DAILY 05/29/23 [History] Losartan Potassium 50 mg PO QAM 05/29/23 [History] Metoprolol Succinate [Metoprolol Succinate ER] 25 mg PO QAM 05/29/23 [History] Follow up Appointment(s)/Referral(s): Viraj Pelaez, DORINDA [PHYSICIAN [employer]ISHING [employer]S ANALYST] - 2 Weeks Patient Instructions/Handouts: Knee Replacement (DC), Knee Replacement (GEN) Activity/Diet/Wound Care/Special Instructions: Orthopedic Discharge Instructions: 1. Wound care and infection precautions, keep incision dry and covered while showering, no lotions, creams, moisturizers. No soaking, pools, hot tubs. Do not scrub over incision. 2. Weight-bear as tolerated with walker / cane until follow-up. 3. Ice and elevate when necessary. Do not exceed 20 minutes per hour with ice pack. 4. Utilize compression sleeve until seen at first follow up appointment. 5. Pain meds and anticoagulants per prescription. 6. Pain medication has potential to cause constipation. Increase oral fluid and fiber intake. Contact primary care provider if you have not had a bowel movement within 48 hours after discharge. 7. No anti-inflammatory medication until discussed at first post operative visit, this including Motrin, Aleve, Mobic, Diclofenac. 8. Follow up in office at 2 weeks postop with Desean Vega PA-C / Viraj Pelaez PA-C 9. Follow up with your primary care doctor 7-10 days after discharge. 10. Contact [facility] with any questions, . Keep incision clean, dry, intact. While showering, cover fusion tape with Saran wrap. Keep fusion tape on until follow-up appointment in office in 2 weeks Discharge Disposition: HOME WITH HOME HEALTH SERVICES
--- NOTE | 2023-06-05 10:38 | P.PN ---
Subjective Progress Note Date: 06/05/23 Principal diagnosis: Left knee osteoarthritis Patient was seen at bedside this morning sitting up in chair with legs elevated and ice over left knee. Fusion tape is present over left knee. Patient says he just says working with therapy and walk on the hallway and up and down steps. Patient says he does have a walker at home. Patient says the pain is manageable with medication. He says he has urinated several times since surgery yesterday. Patient says he has not had bowel movement yet, however, patient says he has been passing gas. Patient denies chest pain, fever, shortness breath, nausea, vomiting, change in vision, loss of bowel/bladder control. Objective - Vital Signs Vital signs: Vital Signs Temp 98.1 F 06/05/23 06:55 Pulse 81 06/05/23 06:55 Resp 17 06/05/23 06:55 BP 130/66 06/05/23 06:55 Pulse Ox 88 L 06/05/23 07:55 FiO2 Intake & Output 06/04/23 06/05/23 06/05/23 18:59 06:59 18:59 Intake Total 2899 460 Output Total 570 Balance 2329 460 Weight 132.2 kg Intake: IV 2899 Intake, IV Titration 100 Amount ceFAZolin 3 gm In Sodium 100 Chloride 0.9% 100 ml @ 200 mls/hr IVPB Q8HR [facility] Rx#:[id number] Oral 360 Output: Urine 520 Estimated Blood Loss 50 Other: # Voids 1 2 - Exam Left knee: Incision is clean, dry, and intact. The exofin fusion tape is in good condition. There is minimal soft tissue swelling and ecchymosis surrounding the medial and lateral aspects of the incision. Calf is soft, no tenderness with palpation. Plantar flexion, dorsiflexion, EHL, FHL are intact. Sensory exam to light touch throughout the extremity is intact, dorsal pedis pulses 2+. - Labs CBC & Chem 7: 06/05/23 05:03 Labs: Abnormal Lab Results - Last 24 Hours (Table) 06/05/23 Range/Units 05:03 RBC 3.29 L (4.40-5.60) X 10*6/uL Hgb 10.0 L (13.0-17.0) g/dL Hct 30.8 L (39.6-50.0) % Monocytes # 1.30 H (0.20-1.00) X 10*3/uL Eosinophils # 0.01 L (0.04-0.35) X 10*3/uL Assessment and Plan Assessment: 1. Left knee osteoarthritis - Postoperative day #1 status post left total knee arthroplasty Plan: 1. Left knee osteoarthritis - left total knee arthroplasty performed yesterday, 06/04/2023. Patient stable at bedside this morning. Patient does have a walker for home. Patient did do well with therapy this morning. Discharge home today with health services. 2. Appreciate medical management 3. Pain management - [place] 4. DVT prophylaxis - Xarelto in hospital. Going home with Eliquis 2.5 mg twice a day 2 weeks 5. GI prophylaxis - senna 6. PT/OT - weightbearing as tolerated walker 7. Encourage incentive spirometer use 8. Discharge planning - home today with health services Time with Patient: Less than 30
--- NOTE | 2023-06-05 11:05 | P.PN ---
Subjective Progress Note Date: 06/05/23 Patient is a 72-year-old male with hypertension, nonischemic cardiomyopathy with ejection fraction 35% gout, hypothyroidism, GERD and osteoarthritis who presented for left total knee arthroplasty. Patient seen and examined at bedside. Doing well. C/O pain in the knee. No shortness of breath, no chest pain, no nausea, no dizziness. Vital signs reviewed General: Nontoxic, no distress, appears at stated age Cardiovascular: S1S2 reg, no murmur Lungs: CTA bilateral, no rhonchi, no rales, no accessory muscle use Abdominal: Soft, nontender to palpation, no guarding Ext: No gross muscle atrophy, no edema b/l lower extremities, no contractures Neuro: CN II-XI grossly intact, no focal neuro deficits Psych: Alert, oriented, appropriate affect Assessment/Plan: 72-year-old male status post left total knee arthroplasty Nonischemic cardiomyopathy with ejection fraction 35% Hypertension HLD -Metoprolol 25 mg daily, losartan 50 mg daily -Lipitor 20 mg daily Acute blood loss anemia - Ferrous sulfate 325 mg PO daily X 30 day Hypothyroidism -Levothyroxine 50 mcg daily Class III obesity with BMI 39.5 -Increase physical activity after knee replacement. GERD Medically optimized for discharge at the discretion of orthopedic surgery. DIscharge med rec addressed. Ordered for iron added. Data Review: From today include CBC which shows a hemoglobin of 10 Thank you for allowing us to participate in the care of this pleasant patient. Do not hesitate to contact us with questions. Someone can be reached from the [facility] hospitalist group all hours of the day at [phone] or via [employer]. This dictation was prepared using [employer] voice recognition software. Though every attempt is made to correct errors during dictation some may still exist. Objective - Vital Signs Vital signs: Vital Signs Temp 98.1 F 06/05/23 06:55 Pulse 81 06/05/23 06:55 Resp 17 06/05/23 06:55 BP 130/66 06/05/23 06:55 Pulse Ox 88 L 06/05/23 07:55 FiO2 Intake & Output 06/04/23 06/05/23 06/05/23 18:59 06:59 18:59 Intake Total 2899 460 Output Total 570 Balance 2329 460 Weight 132.2 kg Intake: IV 2899 Intake, IV Titration 100 Amount ceFAZolin 3 gm In Sodium 100 Chloride 0.9% 100 ml @ 200 mls/hr IVPB Q8HR [facility] Rx#:[id number] Oral 360 Output: Urine 520 Estimated Blood Loss 50 Other: # Voids 1 2 - Labs CBC & Chem 7: 06/05/23 05:03 Labs: Abnormal Lab Results - Last 24 Hours (Table) 06/05/23 Range/Units 05:03 RBC 3.29 L (4.40-5.60) X 10*6/uL Hgb 10.0 L (13.0-17.0) g/dL Hct 30.8 L (39.6-50.0) % Monocytes # 1.30 H (0.20-1.00) X 10*3/uL Eosinophils # 0.01 L (0.04-0.35) X 10*3/uL
--- NOTE | 2023-06-05 12:22 | P.PN ---
Progress Note - Text 06/05/23 711am 72-year-old male status post total knee replacement. Patient is an On-Q pump for postop pain control with a solution running at 80 with a VAS of 2-3. Dressing clean dry and intact. Plan to continue On-Q pump infusion
== END 2023-06-05 15:01 | disposition home health service (06) ==
LOC: OR 05:46 → 4SSUR 09:39 → OR 06-05 15:01
PROVIDERS: ATTEND Orthopaedic Surgery
DX: M17.12 Unilateral primary osteoarthritis, left knee (principal); G89.18 Other acute postprocedural pain; I10 Essential (primary) hypertension; K21.9 Gastro-esophageal reflux disease without esophagitis; E07.9 Disorder of thyroid, unspecified; Z85.20 Personal history of malignant neoplasm of unspecified respiratory organ; Z90.79 Acquired absence of other genital organ(s); Z90.49 Acquired absence of other specified parts of digestive tract; Z90.89 Acquired absence of other organs; Z87.891 Personal history of nicotine dependence; Z85.46 Personal history of malignant neoplasm of prostate; Z80.1 Family history of malignant neoplasm of trachea, bronchus and lung; Z79.890 Hormone replacement therapy; Z79.899 Other long term (current) drug therapy
CPT/HCPCS: 94760; 97161; 64999; 64448; 85025; 73560; 27447; C1713 ×2; C1776; C1751; J2250; J1100; J0690 ×2; J2405; J2795; J1170 ×2

== ENCOUNTER → 2023-07-08 | Outpatient (CLI) | payer OTHER ==
[2023-07-08 19:27] LABS: ALT 23 U/L (10-49); AST 24 U/L (14-35); Albumin 4.5 g/dL (3.8-4.9); Alkaline Phosphatase 130 U/L (41-126); Blood Urea Nitrogen 28.2 mg/dL (9.0-27.0); Calcium 9.4 mg/dL (8.7-10.3); Carbon Dioxide 22.9 mmol/L (21.6-31.8); Chloride 104 mmol/L (96-109); Chol/HDL Ratio 2.16 Ratio; Glucose 98 mg/dL (70-110); LDL Cholesterol,Calculated 63.3 mg/dL (0.0-131.0); Potassium 4.5 mmol/L (3.5-5.5); Sodium 141 mmol/L (135-145); Total Bilirubin 0.4 mg/dL (0.3-1.2); Total Protein 7.5 g/dL (6.2-8.2)
== END | disposition home or self-care (01) ==
LOC: LABWHC1 13:19
PROVIDERS: ATTEND Internal Medicine Interventional Cardiology
DX: I10 Essential (primary) hypertension (principal); E78.2 Mixed hyperlipidemia
CPT/HCPCS: 36415; 80053; 80061

== ENCOUNTER 2023-11-12 22:32 | Inpatient (IN) | payer OTHER, MEDICARE ==
--- NOTE | 2023-11-12 22:58 | ED ---
Neuro HPI - General Chief Complaint: Neuro Symptoms/Deficit Stated Complaint: SOB Time Seen by Provider: 11/12/23 22:53 Source: patient, RN notes reviewed, old records reviewed Mode of arrival: ambulatory Limitations: no limitations - History of Present Illness Is the patient presenting with stroke symptoms?: Yes -: days(s) Initial Comments: This is a 73 male to the ER today. This patient is presenting today for evaluation regards to confusion not acting appropriately throughout the day witnessed by family. Was doing some inappropriate things throughout the day unable to open the garage unable to get his car into the garage just normal activities of daily living that he was having confusion with this was noticed today and he was not seen by family yesterday. Patient also did not have some words that he was saying inappropriately and calling things by the wrong name. Failure brings patient to the ER tonight for evaluation Location: speech, dysarthria History of same: Yes Place: home Severity: mild Quality: weak, numb, tingling Improves With: none Worsens With: none Context: gradual onset Associated Symptoms: confusion Treatments Prior to Arrival: none - Related Data Home Medications: Home Medications Medication Instructions Recorded Confirmed Omeprazole [PriLOSEC] 20 mg PO QAM 06/21/16 11/13/23 allopurinoL [Allopurinol] 100 mg PO QAM 06/21/16 11/13/23 Levothyroxine Sodium [Synthroid] 50 mcg PO QAM 09/13/22 11/13/23 Atorvastatin [Lipitor] 20 mg PO QAM 05/29/23 11/13/23 Losartan Potassium 50 mg PO QAM 05/29/23 11/13/23 Meloxicam [Mobic] 7.5 mg PO BID 11/13/23 11/13/23 Previous Rx's Medication Instructions Recorded Aspirin 81 mg PO DAILY #90 tab 11/15/23 Clopidogrel [Plavix] 75 mg PO DAILY #21 tab 11/15/23 Metoprolol Succinate (ER) [Toprol 50 mg PO DAILY #30 tab 11/15/23 XL] Allergies/Adverse Reactions: Allergies Allergy/AdvReac Type Severity Reaction Status Date / Time No Known Allergies Allergy Verified 11/13/23 08:31 Review of Systems ROS Statement: Those systems with pertinent positive or pertinent negative responses have been documented in the HPI. ROS Other: All systems not noted in ROS Statement are negative. General Exam - General Exam Comments Initial Comments: NIH of 2 Limitations: no limitations General appearance: alert, in no apparent distress, anxious, in distress Head exam: Present: atraumatic, normocephalic, normal inspection Eye exam: Present: normal appearance, PERRL, EOMI. Absent: scleral icterus, conjunctival injection, periorbital swelling ENT exam: Present: normal exam, mucous membranes moist Neck exam: Present: normal inspection. Absent: tenderness, meningismus, lymphadenopathy Respiratory exam: Present: normal lung sounds bilaterally. Absent: respiratory distress, wheezes, rales, rhonchi, stridor Cardiovascular Exam: Present: regular rate, normal rhythm, normal heart sounds. Absent: systolic murmur, diastolic murmur, rubs, gallop, clicks GI/Abdominal exam: Present: soft, normal bowel sounds. Absent: distended, tenderness, guarding, rebound, rigid Extremities exam: Present: normal inspection, full ROM, normal capillary refill. Absent: tenderness, pedal edema, joint swelling, calf tenderness Back exam: Present: normal inspection Neurological exam: Present: alert, oriented X3, CN II-XII intact Psychiatric exam: Present: normal affect, normal mood Skin exam: Present: warm, dry, intact, normal color. Absent: rash Stroke MDM - Lab Data Result diagrams: 11/14/23 05:01 11/14/23 05:01 Lab Results 11/12/23 11/12/23 11/12/23 Range/Units 22:59 23:04 23:04 WBC 7.4 (3.8-10.6) k/uL RBC 4.18 L (4.30-5.90) m/uL Hgb 13.0 (13.0-17.5) gm/dL Hct 39.7 (39.0-53.0) % MCV 94.9 (80.0-100.0) fL MCH 31.1 (25.0-35.0) pg MCHC 32.8 (31.0-37.0) g/dL RDW 14.8 (11.5-15.5) % Plt Count 246 (150-450) k/uL MPV 8.2 Neutrophils % 70 % Lymphocytes % 16 % Monocytes % 8 % Eosinophils % 2 % Basophils % 0 % Neutrophils # 5.2 (1.3-7.7) k/uL Lymphocytes # 1.2 (1.0-4.8) k/uL Monocytes # 0.6 (0-1.0) k/uL Eosinophils # 0.2 (0-0.7) k/uL Basophils # 0.0 (0-0.2) k/uL PT 10.8 (10.0-12.5) sec INR 1.0 (<1.2) APTT 22.6 (22.0-30.0) sec Sodium (137-145) mmol/L Potassium (3.5-5.1) mmol/L Chloride (98-107) mmol/L Carbon Dioxide (22-30) mmol/L Anion Gap mmol/L BUN (9-20) mg/dL Creatinine (0.66-1.25) mg/dL Est GFR (CKD-EPI)AfAm (>60 ml/min/1.73 sqM) Est GFR (CKD-EPI)NonAf (>60 ml/min/1.73 sqM) Glucose (74-99) mg/dL POC Glucose (mg/dL) 98 (70-110) mg/dL POC Glu Food Service Lead ID Medel, Ibis Calcium (8.4-10.2) mg/dL Total Bilirubin (0.2-1.3) mg/dL AST (17-59) U/L ALT (4-49) U/L Alkaline Phosphatase (38-126) U/L Creatine Kinase (55-170) U/L Troponin I (0.000-0.034) ng/mL Total Protein (6.3-8.2) g/dL Albumin (3.5-5.0) g/dL 11/12/23 11/12/23 Range/Units 23:04 23:04 WBC (3.8-10.6) k/uL RBC (4.30-5.90) m/uL Hgb (13.0-17.5) gm/dL Hct (39.0-53.0) % MCV (80.0-100.0) fL MCH (25.0-35.0) pg MCHC (31.0-37.0) g/dL RDW (11.5-15.5) % Plt Count (150-450) k/uL MPV Neutrophils % % Lymphocytes % % Monocytes % % Eosinophils % % Basophils % % Neutrophils # (1.3-7.7) k/uL Lymphocytes # (1.0-4.8) k/uL Monocytes # (0-1.0) k/uL Eosinophils # (0-0.7) k/uL Basophils # (0-0.2) k/uL PT (10.0-12.5) sec INR (<1.2) APTT (22.0-30.0) sec Sodium 140 (137-145) mmol/L Potassium 4.0 (3.5-5.1) mmol/L Chloride 109 H (98-107) mmol/L Carbon Dioxide 22 (22-30) mmol/L Anion Gap 9 mmol/L BUN 23 H (9-20) mg/dL Creatinine 1.22 (0.66-1.25) mg/dL Est GFR (CKD-EPI)AfAm 67 (>60 ml/min/1.73 sqM) Est GFR (CKD-EPI)NonAf 58 (>60 ml/min/1.73 sqM) Glucose 110 H (74-99) mg/dL POC Glucose (mg/dL) (70-110) mg/dL POC Glu Food Service Lead ID Calcium 9.3 (8.4-10.2) mg/dL Total Bilirubin 0.7 (0.2-1.3) mg/dL AST 29 (17-59) U/L ALT 22 (4-49) U/L Alkaline Phosphatase 85 (38-126) U/L Creatine Kinase 166 (55-170) U/L Troponin I 0.019 (0.000-0.034) ng/mL Total Protein 7.1 (6.3-8.2) g/dL Albumin 4.4 (3.5-5.0) g/dL - NIH Stroke Scale 1a. Level of Consciousness: (0) alert 1b. LOC Questions: (0) answers correctly 1c. LOC Commands: (0) performs tasks correctly 2. Best Gaze: (0) normal 3. Visual: (0) no visual loss 4. Facial Palsy: (0) normal symmetrical movement 5a. Motor Arm Left: (0) no drift 5b. Motor Arm Right: (0) no drift 6a. Motor Leg Left: (0) no drift 6b. Motor Leg Right: (0) no drift 7. Limb Ataxia: (0) absent 8. Sensory: (0) normal 9. Best Language: (1) mild/moderate aphasia 10. Dysarthria: (1) mild/moderate dysarthria 11. Extinction/Inattention: (0) no abnormality - Thrombolytic Inclusion/Exclusion Thrombolytic Exclusion Criteria: Symptom Onset > 4.5 Hours - Medical Decision Making 73 male will be admitted for CVA with altered mental status confusion difficulty with speech and speaking inappropriately. Patient will admit for neurology evaluation - Radiology Data Radiology results: report reviewed (CT brain CTA head neck negative for acute disease), image reviewed - EKG Data -: EKG Interpreted by Me (EKG is sinus 93 DE 144 QRS 100 QTc 428) Past Medical History Past Medical History: Hypertension Additional Past Medical History / Comment(s): HX DUODENAL ULCER, PROSTATE CANCER (SURGERY), MELANOMA ., GOUT, INFECTION AFTER WRIST SURGERY AND HARDWARE REMOVED AND CAST WAS APPLIED. 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 History of Any Multi-Drug Resistant Organisms: None Reported Past Surgical History: Orthopedic Surgery Additional Past Surgical History / Comment(s): COLONOSCOPY, EGD , RIGHT ROTATER CUFF, FX RIGHT WRIST SURGERY, rt cataract surgery. Past Anesthesia/Blood Transfusion Reactions: No Reported Reaction Past Psychological History: Anxiety Smoking Status: Former smoker Past Alcohol Use History: None Reported Past Drug Use History: None Reported - Past Family History Father Family Medical History: Cancer Additional Family Medical History / Comment(s): Prostate cancer. Mother Family Medical History: Cancer Additional Family Medical History / Comment(s): Lung cancer. Brother(s) Family Medical History: Cancer Additional Family Medical History / Comment(s): Prostate cancer. Course Vital Signs 11/12/23 11/12/23 11/12/23 22:42 23:20 23:30 Temperature 97.7 F Pulse Rate 91 87 Pulse Rate [ Pulse Oximetery ] Respiratory 18 18 Rate Blood Pressure 159/79 147/72 129/74 Blood Pressure [Supine] O2 Sat by Pulse 94 L 91 L Oximetry 11/13/23 11/13/23 11/13/23 00:14 01:00 03:00 Temperature 98.7 F 97.7 F Pulse Rate 89 84 Pulse Rate [ Pulse Oximetery ] Respiratory 18 18 Rate Blood Pressure 140/84 149/84 160/83 Blood Pressure [Supine] O2 Sat by Pulse 100 96 93 L Oximetry 11/13/23 11/13/23 11/13/23 03:39 06:00 08:00 Temperature 97.5 F L 97.7 F Pulse Rate 80 86 Pulse Rate [ 92 Pulse Oximetery ] Respiratory 18 18 16 Rate Blood Pressure 154/87 136/66 Blood Pressure 154/71 [Supine] O2 Sat by Pulse 92 L 93 L 98 Oximetry 11/13/23 11/13/23 11/13/23 08:53 10:00 11:00 Temperature Pulse Rate 76 68 58 L Pulse Rate [ Pulse Oximetery ] Respiratory 16 16 16 Rate Blood Pressure 145/68 130/78 118/68 Blood Pressure [Supine] O2 Sat by Pulse 98 98 98 Oximetry 11/13/23 11/13/23 11/13/23 12:00 14:00 15:00 Temperature Pulse Rate 68 68 75 Pulse Rate [ Pulse Oximetery ] Respiratory 16 16 16 Rate Blood Pressure 135/68 135/68 112/68 Blood Pressure [Supine] O2 Sat by Pulse 98 98 98 Oximetry 11/13/23 11/13/23 11/13/23 15:58 17:00 17:54 Temperature Pulse Rate 75 90 68 Pulse Rate [ Pulse Oximetery ] Respiratory 16 20 16 Rate Blood Pressure 120/68 157/90 175/86 Blood Pressure [Supine] O2 Sat by Pulse 98 98 98 Oximetry 11/13/23 19:40 Temperature 98.2 F Pulse Rate 85 Pulse Rate [ Pulse Oximetery ] Respiratory 18 Rate Blood Pressure 138/92 Blood Pressure [Supine] O2 Sat by Pulse 97 Oximetry - Reevaluation(s) Reevaluation #1: 11/13/23 00:04 Records reviewed code stroke paged on patient arrival Reevaluation #2: 11/13/23 00:04 Patient informed of results and questions answered Reevaluation #3: 11/13/23 00:05 Patient informed of results and questions answered Reevaluation #4: Was pt. sent in by a medical professional or institution (, PA, DEVELOPMENT TRAINER, urgent care, hospital, or snf...) When possible be specific @ -no Did you speak to anyone other than the patient for history (EMS, parent, family, police, friend...)? What history was obtained from this source @ -no Did you review nursing and triage notes (agree or disagree)? Why? @ -agree Are old charts reviewed (outside hosp., previous admission, EMS record, old EKG, old radiological studies, urgent care reports/EKG's, snf records)? Report findings @ -yes Differential Diagnosis (chest pain, altered mental status, abdominal pain women, abdominal pain men, vaginal bleeding, weakness, fever, dyspnea, syncope, headache, dizziness, GI bleed, back pain, seizure, CVA, palpatations, mental health, musculoskeletal)? @ -prior EKG interpreted by me (3pts min.). @ -yes X-rays interpreted by me (1pt min.). @ -yes negative for acute disease CT interpreted by me (1pt min.). @ -Yes negative for acute disease U/S interpreted by me (1pt. min.). @ -no What testing was considered but not performed or refused? (CT, X-rays, U/S, labs)? Why? @ -none What meds were considered but not given or refused? Why? @ -none Did you discuss the management of the patient with other professionals (professionals i.e. , PA, DEVELOPMENT TRAINER, lab, RT, psych nurse, psychotherapist social worker, deflector operator, teacher, food safety officer, senior case manager)? Give summary @ -no Was smoking cessation discussed for >3mins.? @ -no Was critical care preformed (if so, how long)? @ -yes31 Were there social determinants of health that impacted care today? How? (Ho melessness, low income, unemployed, alcoholism, drug addiction, transportation, low edu. Level, literacy, decrease access to med. care, group home, rehab)? @ -none Was there de-escalation of care discussed even if they declined (Discuss DNR or withdrawal of care, Hospice)? DNR status @ -no What co-morbidities impacted this encounter? (DM, HTN, Smoking, COPD, CAD, Cancer, CVA, ARF, Chemo, Hep., AIDS, mental health diagnosis, sleep apnea, morbid obesity)? @ -none Was patient admitted / discharged? Hospital course, mention meds given and route, prescriptions, significant lab abnormalities, going to OR and other pertinent info. @ - 73 male will be admitted for CVA with altered mental status confusion difficulty with speech and speaking inappropriately. Patient will admit for neurology evaluation Admitted Undiagnosed new problem with uncertain prognosis? @ -no Drug Therapy requiring intensive monitoring for toxicity (Heparin, Nitro, Insulin, Cardizem)? @ -no Were any procedures done? @ -no Diagnosis/symptom? @ -CVA Acute, or Chronic, or Acute on Chronic? @ -Acute Uncomplicated (without systemic symptoms) or Complicated (systemic symptoms)? @ -Complicated Side effects of treatment? @ -no Exacerbation, Progression, or Severe Exacerbation? @ -exacerbation Poses a threat to life or bodily function? How? (Chest pain, [place], [place], pneumonia, PE, COPD, DKA, ARF, appy, cholecystitis, CVA, Diverticulitis, Homicidal, Suicidal, threat to staff... and all critical care pts) @ -yes extremes of age Reevaluation #5: Differential CVA Differential Altered Mental Status: Hypoglycemia, DKA, hypercapnia, ETOH, overdose, CO poisoning, trauma, myxedema coma, HTN encephalopathy, infection, encephalitis, psychosis, intercranial hemorrhage, hepatic encephalopathy, meningitis, CVA, this is not meant to be an all-inclusive list Differential CVA Ischemic stroke, hemorrhagic stroke, brain tumor, atypical migraine, Wernicke's encephalopathy, seizure, multiple sclerosis, meningitis, encephalitis, hypoglycemia, Guillain-Mathis, electrolytes disturbance, myasthenia gravis.... This is not meant to be an all-inclusive list - Consultations Consultation #1: Spoke with yair who agrees to admit this patient Critical Care Time Critical Care Time: Yes Total Critical Care Time: 31 Disposition Clinical Impression: Cerebrovascular accident (CVA), Confusion, AMS (altered mental status) Disposition: ADMITTED IP TO THIS HOSP Condition: Serious Is patient prescribed a controlled substance at d/c from ED?: No Time of Disposition: 23:55
[2023-11-12 23:01] LABS: Glucose,Whole Blood 98 mg/dL (70-110)
[2023-11-12] MEDS: SODIUM CHLORIDE 0.9% 1,000 ML IV STA (23:07)
[2023-11-12 23:21] LABS: ALT 22 U/L (4-49); AST 29 U/L (17-59); African American GFR (CKD) 67 (>60 ml/min/1.73 sqM); Albumin 4.4 g/dL (3.5-5.0); Alkaline Phosphatase 85 U/L (38-126); Anion Gap 9 mmol/L; Blood Urea Nitrogen 23 mg/dL (9-20); Calcium 9.3 mg/dL (8.4-10.2); Carbon Dioxide 22 mmol/L (22-30); Chloride 109 mmol/L (98-107); Creatine Kinase 166 U/L (55-170); Glucose 110 mg/dL (74-99); Non-African American GFR(CKD) 58 (>60 ml/min/1.73 sqM); Sodium 140 mmol/L (137-145); Total Bilirubin 0.7 mg/dL (0.2-1.3); Total Protein 7.1 g/dL (6.3-8.2)
--- NOTE | 2023-11-12 23:21 | CT ---
EXAMINATION TYPE: CT brain wo con DATE OF EXAM: 11/12/2023 HISTORY: Pt arrives in [facility] for what he states is shortness of breath. Pt states he has noticed increas ed shortness of breath all day but denied any chest pain. After speaking with pt and daughter pt anthony bullock mentioned increased confusion earlier in the day and states her son mentioned the pt was "spacy " and unable to finish conversation due to inability to find word. Pt has expressive aphasia in triag e and was unable to identify hx cancer prostate, melanoma CT DLP: 1281.8 mGycm. Automated Exposure Control for Dose Reduction was Utilized. TECHNIQUE: CT scan of the head is performed without contrast. COMPARISON: Prior CT-September 12, 2022. FINDINGS: There is no acute intracranial hemorrhage or midline shift identified. There is mild to m oderate diffuse ventricular and sulcal prominence redemonstrated. There is mild low-attenuation in t he periventricular white matter redemonstrated. Bilateral aphakia redemonstrated. The visualized sinu ses are clear. The calvarium is intact. IMPRESSION: No acute intracranial hemorrhage or midline shift. There is mild to moderate diffuse ag e-related cerebral atrophy and mild chronic small vessel ischemic change redemonstrated. No signific ant change from prior. MRI is noted more sensitive to evaluate for acute stroke.
--- NOTE | 2023-11-12 23:33 | CT ---
EXAMINATION TYPE: CT angio head neck DATE OF EXAM: 11/12/2023 HISTORY: Pt arrives in for what he states is shortness of breath. Pt states he has noticed increas ed shortness of breath all day but denied any chest pain. After speaking with pt and daughter pts teetee cooper mentioned increased confusion earlier in the day and states her son mentioned the pt was "spac y" and unable to finish conversation due to inability to find word. Pt has expressive aphasia in [employer] and was unable to identify hx cancer prostate, melanoma COMPARISON: None. CT DLP: 653.4 mGycm. Automated Exposure Control for Dose Reduction was Utilized. TECHNIQUE: CTA scan of the head and neck is performed with IV Contrast, patient injected with 65ml m L of Isovue 370, axial images are obtained, coronal and sagittal reformatted images are reviewed. 3D reconstructed images are created on an independent workstation and reviewed. FINDINGS: Carotid/Vascular Structures: Normal three-vessel origin from the aortic arch. No significant plaque o r stenosis in the common carotid arteries bilaterally. Mild peripheral calcified plaque bilateral car otid bulb level without significant stenosis. Patent external carotid arteries bilaterally. Vertebral arteries are patent to the basilar junction. Right vertebral artery is larger caliber or dominant. N o significant plaque or stenosis in the internal carotid arteries bilaterally. No large vessel occlus ion or aneurysm at level of [place]. Other: Slightly small thyroid gland is present. Mild to moderate spurring and disc space narrowing at C4-C5 and C5-C6 levels is seen. IMPRESSION: No significant vascular abnormality is identified. NASCET criteria was used in interpretation of this exam?
[2023-11-12 23:44] LABS: Partial Thromboplastin Time 22.6 sec (22.0-30.0); Prothrombin Time 10.8 sec (10.0-12.5)
[2023-11-12 23:45] LABS: Basophils % (A) 0 %; Eosinophils # (A) 0.2 k/uL (0-0.7); Eosinophils % (A) 2 %; HCT 39.7 % (39.0-53.0); Lymphocytes # (A) 1.2 k/uL (1.0-4.8); Lymphocytes % (A) 16 %; MCH 31.1 pg (25.0-35.0); MCHC 32.8 g/dL (31.0-37.0); MCV 94.9 fL (80.0-100.0); Mean Platelet Volume 8.2; Monocytes # (A) 0.6 k/uL (0-1.0); Monocytes % (A) 8 %; Neutrophils # (A) 5.2 k/uL (1.3-7.7); Neutrophils % (A) 70 %; Platelet Count 246 k/uL (150-450); RBC 4.18 m/uL (4.30-5.90); RDW 14.8 % (11.5-15.5); WBC 7.4 k/uL (3.8-10.6)
[2023-11-13] MEDS: ASPIRIN 325 MG TAB PO STA (00:20)
[2023-11-13] MEDS: SODIUM CHLORIDE 0.9% 1,000 ML IV SCH (00:28)
--- NOTE | 2023-11-13 03:45 | P.HPIM ---
History of Present Illness H&P Date: 11/13/23 Patient is a 73-year-old male with PMH of PUD, hypertension, and hypothyroidism who was brought to the emergency room by family for confusion. The patient notes he did not feel quite like himself today and was having difficult time finding words when at home. The symptoms reportedly started soon after waking up. The family also reported that the patient was confused, and not acting appropriately. He was reportedly unable to open his garage or get into his car which are his normal activities of daily living. He reports feeling essentially back to baseline at the time of interview. Patient also reports having a mild headache throughout the day which resolves shortly after arrival at the emergency room. He denied experiencing any weakness, numbness, tingling, visual impairment, or dizziness. Also denied fever, chills, urinary complaints, cough, nausea, vomiting, abdominal pain, diarrhea. Denies any prior history of such confusion or word finding difficulties but does report being told that he may have had a CVA in the past. Denied any facial droop today today. CT brain and CT angiogram of head and neck revealed chronic small vessel ischemic changes with no acute abnormalities. EKG revealed sinus rhythm with PVCs at 93 bpm with findings of LVH as reviewed by me. Laboratory evaluation was remarkable for chloride 109, BUN 23, creatinine 1.22, glucose 120 troponin 0.019 and creatinine kinase 166. UA is currently pending. ED documentation reviewed and case discussed with ED provider. Review of systems: Pertinent positives and negatives as discussed in HPI, a complete review of systems was performed and all other systems are negative. Physical examination: Vital signs reviewed General: non toxic, no distress, appears at stated age, morbidly obese Derm: no unusual rashes/lesions, warm Head: atraumatic, normocephalic, symmetric Eyes: EOMI, no lid lag, anicteric sclera, pupils equal round reactive to light ENT: Nose and ears atraumatic Neck: No cervical lymphadenopathy, trachea midline, supple Mouth: no lip lesion, mucus membranes moist Cardiovascular: S1S2 reg, no murmur, positive dorsalis pedis pulse bilateral, no edema Lungs: CTA bilateral, no rhonchi, no rales, no accessory muscle use Abdominal: soft, nontender to palpation, no guarding Ext: muscle strength 5 out of 5 in all 4 extremities grossly, no gross muscle atrophy, no contractures, Neuro: CN II-XI grossly intact, no gross focal neuro deficits Psych: Alert, oriented, appropriate affect Assessment: Altered mental status with expressive aphasia, now resolved, rule out TIA Chronic conditions: PUD, hypertension, hypothyroidism Imaging: CT brain and CT angiogram of head and neck revealed chronic small vessel ischemic changes with no acute abnormalities. EKG revealed sinus rhythm with PVCs at 93 bpm with findings of LVH as reviewed by me. Data Review: Laboratory evaluation was remarkable for chloride 109, BUN 23, creatinine 1.22, glucose 120 troponin 0.019 and creatinine kinase 166. UA is currently pending. Plan: Neurology consulted Neurochecks Continue with aspirin and Lipitor Cardiac monitoring Echocardiogram PT and speech consult Resume home medications once reconciled (patient does not recall all the dosages) DVT prophylaxis: Lovenox subcu The patient is admitted with an anticipated fewer than 2 midnight stay for evaluation of altered mental status CODE STATUS: Full Code Discussed with: Patient Anticipated discharge place: Home Past Medical History Past Medical History: Hypertension Additional Past Medical History / Comment(s): HX DUODENAL ULCER, PROSTATE CANCER (SURGERY), MELANOMA ., GOUT, INFECTION AFTER WRIST SURGERY AND HARDWARE REMOVED AND CAST WAS APPLIED. 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 History of Any Multi-Drug Resistant Organisms: None Reported Past Surgical History: Orthopedic Surgery Additional Past Surgical History / Comment(s): COLONOSCOPY, EGD , RIGHT ROTATER CUFF, FX RIGHT WRIST SURGERY, rt cataract surgery. Past Anesthesia/Blood Transfusion Reactions: No Reported Reaction Past Psychological History: Anxiety Smoking Status: Former smoker Past Alcohol Use History: None Reported Past Drug Use History: None Reported - Past Family History Father Family Medical History: Cancer Additional Family Medical History / Comment(s): Prostate cancer. Mother Family Medical History: Cancer Additional Family Medical History / Comment(s): Lung cancer. Brother(s) Family Medical History: Cancer Additional Family Medical History / Comment(s): Prostate cancer. Medications and Allergies Home Medications Medication Instructions Recorded Confirmed Type Omeprazole [PriLOSEC] 20 mg PO QAM 06/21/16 05/29/23 History allopurinoL [Allopurinol] 100 mg PO QAM 06/21/16 05/29/23 History Levothyroxine Sodium [Synthroid] 50 mcg PO QAM 09/13/22 05/29/23 History Atorvastatin [Lipitor] 20 mg PO DAILY 05/29/23 05/29/23 History Losartan Potassium 50 mg PO QAM 05/29/23 05/29/23 History Metoprolol Succinate [Metoprolol 25 mg PO QAM 05/29/23 05/29/23 History Succinate ER] Apixaban [Eliquis] 2.5 mg PO BID #60 tab 06/05/23 Rx Ferrous Sulfate [Slow Fe] 142 mg PO DAILY #30 tab 06/05/23 Rx HYDROcodone/APAP 7.5-325MG [[place] 1 - 2 tab PO Q6HR PRN #36 tab 06/05/23 Rx 7.5-325] Sennosides/Docusate Sodium [Senna 1 each PO DAILY #20 capsule 06/05/23 Rx Plus 8.6-50 mg Softgel] Allergies Allergy/AdvReac Type Severity Reaction Status Date / Time No Known Allergies Allergy Verified 11/12/23 22:48 Physical Exam Vitals: Vital Signs Temp Pulse Resp BP Pulse Ox 11/13/23 01:00 97.7 F 84 18 149/84 96 11/13/23 00:14 98.7 F 89 18 140/84 100 11/12/23 23:30 129/74 11/12/23 23:20 87 18 147/72 91 L 11/12/23 22:42 97.7 F 91 18 159/79 94 L Intake and Output 11/12/23 11/12/23 11/13/23 14:59 22:59 06:59 Other: Weight 127.006 kg Results CBC & Chem 7: 11/12/23 23:04 11/12/23 23:04 Labs: Abnormal Lab Results - Last 24 Hours (Table) 11/12/23 11/12/23 Range/Units 23:04 23:04 RBC 4.18 L (4.30-5.90) m/uL Chloride 109 H (98-107) mmol/L BUN 23 H (9-20) mg/dL Glucose 110 H (74-99) mg/dL
[2023-11-13] MEDS: ENOXAPARIN 40 MG/0.4 ML SYRINGE SQ SCH (08:42)
[2023-11-13] MEDS ORDERED: LORazepam 2 MG/ML INJ IV PRN (10:53)
--- NOTE | 2023-11-13 16:45 | P.CNNES ---
History of Present Illness Consult date: 11/13/23 Requesting physician: Joe Almanzar Reason for Consult: cva History of Present Illness: This is a 73-year-old gentleman who presented emergency department because of speech difficulty. He is accompanied with his daughter was at bedside. It seems that yesterday he noticed his symptoms at afternoon. But he woke up at 7 and 8:00 in the morning but did not speak with anybody until 12:00 was felt his speech was off and he is having word finding difficulties. He felt he knew what he wanted to say but it is coming out wrong. He also could not remember the code on his phone. His last normal was midnight prior to that. Denies any focal weakness, numbness, denies any visual disturbance. He denies any nausea or vomiting. He had some headache over the frontal region yesterday after the episode. It seems his speech is improving but not back to baseline. Patient is not on any antiplatelet or anticoagulation. No history of A-fib. There is a questionable TIA in the past not recall the symptoms. Some of the workup during this hospital visit consisted of: I reviewed the lab test. CT head is reported as no acute intracranial hemorrhage or midline shift. There is mild to moderate diffuse age-related cerebral atrophy and mild chronic small vessel ischemic changes redemonstrated. No significant change from prior. I reviewed the CT and I agree there is no acute or subacute stroke. CT angiography of the head and neck is reported as no significant vascular abnormalities identified. Review of Systems The positive and negative as per HPI. Past Medical History Past Medical History: Hypertension Additional Past Medical History / Comment(s): HX DUODENAL ULCER, PROSTATE CANCER (SURGERY), MELANOMA ., GOUT, INFECTION AFTER WRIST SURGERY AND HARDWARE REMOVED AND CAST WAS APPLIED. 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 History of Any Multi-Drug Resistant Organisms: None Reported Past Surgical History: Orthopedic Surgery Additional Past Surgical History / Comment(s): COLONOSCOPY, EGD , RIGHT ROTATER CUFF, FX RIGHT WRIST SURGERY, rt cataract surgery. Past Anesthesia/Blood Transfusion Reactions: No Reported Reaction Past Psychological History: Anxiety Smoking Status: Former smoker Past Alcohol Use History: None Reported Past Drug Use History: None Reported - Past Family History Father Family Medical History: Cancer Additional Family Medical History / Comment(s): Prostate cancer. Mother Family Medical History: Cancer Additional Family Medical History / Comment(s): Lung cancer. Brother(s) Family Medical History: Cancer Additional Family Medical History / Comment(s): Prostate cancer. Medications and Allergies Home Medications Medication Instructions Recorded Confirmed Type Omeprazole [PriLOSEC] 20 mg PO QAM 06/21/16 11/13/23 History allopurinoL [Allopurinol] 100 mg PO QAM 06/21/16 11/13/23 History Levothyroxine Sodium [Synthroid] 50 mcg PO QAM 09/13/22 11/13/23 History Atorvastatin [Lipitor] 20 mg PO QAM 05/29/23 11/13/23 History Losartan Potassium 50 mg PO QAM 05/29/23 11/13/23 History Metoprolol Succinate [Metoprolol 25 mg PO QAM 05/29/23 11/13/23 History Succinate ER] Meloxicam [Mobic] 7.5 mg PO BID 11/13/23 11/13/23 History Allergies Allergy/AdvReac Type Severity Reaction Status Date / Time No Known Allergies Allergy Verified 11/13/23 08:31 Physical Examination - Vital Signs Vital Signs: Vital Signs Temp Pulse Resp BP Pulse Ox 11/13/23 15:58 75 16 120/68 98 11/13/23 15:00 75 16 112/68 98 11/13/23 14:00 68 16 135/68 98 11/13/23 12:00 68 16 135/68 98 11/13/23 11:00 58 L 16 118/68 98 11/13/23 10:00 68 16 130/78 98 11/13/23 08:53 76 16 145/68 98 11/13/23 08:00 86 16 136/66 98 11/13/23 06:00 97.7 F 80 18 154/87 93 L 11/13/23 03:00 160/83 93 L 11/13/23 01:00 97.7 F 84 18 149/84 96 11/13/23 00:14 98.7 F 89 18 140/84 100 11/12/23 23:30 129/74 11/12/23 23:20 87 18 147/72 91 L 11/12/23 22:42 97.7 F 91 18 159/79 94 L GENERAL: The patient is sitting in recliner chair and is not in acute distress. NEUROLOGICAL: Higher mental function: The patient is awake, alert, oriented to self, place and time. Patient is following commands. Has mild expressive aphasia. No neglect. Cranial nerves: The pupils are round, equal and reactive to light and accommod ation. Visual avilez are full to confrontation throughout. Extraocular movement is intact no nystagmus is noted. Facial sensation is normal to touch throughout. The facial strength is normal throughout. Hearing is severely decreased bilaterally to hand rub. Tongue is midline and moved [id number] without any difficulty. No dysarthria is noted. Shoulder shrug is normal bilaterally. Motor: The strength is 5 over 5 throughout. Normal tone and bulk. Cerebellum: Normal finger to nose heel to ibrahim bilaterally. Sensation: Sensation is normal to touch throughout. Reflexes (right/left): B2+ Plantars are downgoing bilaterally. Results - Laboratory Findings CBC and BMP: 11/12/23 23:04 11/12/23 23:04 Abnormal Lab Findings: Abnormal Labs 11/12/23 11/12/23 23:04 23:04 RBC 4.18 L Chloride 109 H BUN 23 H Glucose 110 H Assessment and Plan Assessment: This is a 73-year-old gentleman present emergency department because of exp ressive aphasia. He notices symptoms at noon and his last normal was at midnight prior to that. Likely acute ischemic stroke in the patient presented with acute expressive aphasia. On my NIH stroke scale at 1. Per ED team he had NIH stroke scale of 2 for dysarthria and as well as aphasia. No IV thrombolytic because of outside the window and the risk outweigh the benefit Underlying history of hypertension Very hard of hearing Questionable TIA that he was notified by his fine arts instructor but unknown symptoms Plan: Patient was given aspirin 325mg once in the ED. Patient was started on aspirin 81 mg by the primary team in addition I also started the patient on Plavix 75 mg daily. Patient was not on any antiplatelet prior to this patient is on Lipitor 80 mg nightly Pending MRI of the brain, 2D echo, lipid panel, hemoglobin A1c and TSH are pending Continue neurochecks Cardiac monitoring PT OT and HEALTH CARE ASSISTANT are consulted Defer the rest of the medical management to primary team DVT prophylaxis the patient is on Lovenox Plan discussed with the patient and his daughter was at bedside Time with Patient: Greater than 30
[2023-11-13] MEDS: CLOPIDOGREL 75 MG TAB PO SCH (17:52)
[2023-11-13] MEDS: ATORVASTATIN 80 MG TAB PO SCH (20:59)
[2023-11-14 06:13] LABS: Basophils % (A) 1 %; Eosinophils # (A) 0.2 k/uL (0-0.7); Eosinophils % (A) 3 %; HCT 36.8 % (39.0-53.0); HGB 11.8 gm/dL (13.0-17.5); Hypochromasia Slight; Lymphocytes # (A) 0.8 k/uL (1.0-4.8); Lymphocytes % (A) 14 %; MCH 30.8 pg (25.0-35.0); MCHC 32.1 g/dL (31.0-37.0); MCV 95.7 fL (80.0-100.0); Mean Platelet Volume 7.7; Monocytes # (A) 0.5 k/uL (0-1.0); Monocytes % (A) 10 %; Neutrophils # (A) 3.9 k/uL (1.3-7.7); Neutrophils % (A) 70 %; Platelet Count 231 k/uL (150-450); RBC 3.85 m/uL (4.30-5.90); RDW 14.5 % (11.5-15.5); WBC 5.6 k/uL (3.8-10.6)
[2023-11-14 07:55] LABS: African American GFR (CKD) 67 (>60 ml/min/1.73 sqM); Anion Gap 5 mmol/L; Blood Urea Nitrogen 24 mg/dL (9-20); Calcium 8.9 mg/dL (8.4-10.2); Carbon Dioxide 22 mmol/L (22-30); Chloride 113 mmol/L (98-107); Glucose 96 mg/dL (74-99); Magnesium 1.6 mg/dL (1.6-2.3); Non-African American GFR(CKD) 58 (>60 ml/min/1.73 sqM); Potassium 4.5 mmol/L (3.5-5.1); Sodium 140 mmol/L (137-145)
[2023-11-14] MEDS ORDERED: ASPIRIN 325 MG TAB PO SCH (09:00)
[2023-11-14 09:07] LABS: T4, Free (Free Thyroxine) 0.84 ng/dL (0.78-2.19)
[2023-11-14] MEDS: ASPIRIN 81 MG PO SCH (10:09)
[2023-11-14] MEDS: LOSARTAN 50 MG TAB PO SCH (13:08)
--- NOTE | 2023-11-14 13:24 | CA ---
Transthoracic Echo Report Name: Mateus Agosto Age: 73 Gender: M : 1950 Exam Date: 11/13/2023 15:01 Exam Location: [facility] Ht (in): 72 Wt (lb): 280 Ordering Physician: Joe Almanzar DO Attending/Referring Phys: [id number], Jenelle Environmental Services Coordinator Eli Gomez, BRENT Procedure CPT: Indications: Thrombus Cardiac Hx: Technical Quality: Poor, Technically difficult study Contrast 1: Definity Total Dose (mL): 2 Contrast 2: Total Dose (mL): MEASUREMENTS (Male / Female) Normal Values 2D ECHO LV Diastolic Diameter PLAX 6.4 cm 4.2 - 5.9 / 3.9 - 5.3 cm LV Systolic Diameter PLAX 4.9 cm IVS Diastolic Thickness 1.3 cm 0.6 - 1.0 / 0.6 - 0.9 cm LVPW Diastolic Thickness 1.2 cm 0.6 - 1.0 / 0.6 - 0.9 cm LV Relative Wall Thickness 0.4 RV Internal Dim ED PLAX 1.4 cm LA Systolic Diameter LX 4.7 cm 3.0 - 4.0 / 2.7 - 3.8 cm LA Volume 150.0 cm??? 18 - 58 / 22 - 52 cm??? LA Volume Index 57.9 cm???/m??? 16 - 28 cm???/m??? M-MODE Aortic Root Diameter MM 3.1 cm LA Systolic Diameter MM 4.2 cm LA Ao Ratio MM 1.3 AV Cusp Separation MM 2.1 cm FINDINGS Left Ventricle Left ventricular ejection fraction is estimated at 30-35 %. Mildly increased septal wall thickness. Moderately increased left ventricular diastolic diameter. Reduced global left ventricular systolic function. Right Ventricle Mild right ventricular dilatation. Right ventricular systolic pressure within normal limits. Right Atrium Mild right atrial dilatation. Left Atrium Moderately increased left atrial diameter. Severely increased left atrial volume. Moderately increased left atrial area. Mitral Valve Structurally normal mitral valve. Moderate mitral regurgitation. No mitral stenosis. Aortic Valve Trileaflet aortic valve. No aortic stenosis. No aortic regurgitation. Diffuse thickening (sclerosis) of the aortic valve cusps without reduced excursion. Tricuspid Valve Structurally normal tricuspid valve. Trace tricuspid regurgitation. No tricuspid stenosis. Pulmonic Valve Structurally normal pulmonic valve. Trace pulmonic regurgitation. No pulmonic stenosis. Pericardium No pericardial or pleural effusion. Echo free space anterior to the right ventricle likely represents a fat pad. Aorta Normal size aortic root and proximal ascending aorta. CONCLUSIONS Left ventricular ejection fraction 30-35% Mildly increased left ventricular wall thickness Moderately dilated left atrium Moderate mitral regurgitation Trace tricuspid regurgitation Previewed by: Dr. Yony Gonzales DO (Electronically Signed) Final Date: 14 November 2023 13:22
[2023-11-14] MEDS ORDERED: ATORVASTATIN 20 MG TAB PO SCH (14:30)
--- NOTE | 2023-11-14 14:31 | P.PN ---
Subjective Progress Note Date: 11/14/23 Subjective: Patient was seen at bedside. No new acute events overnight. Patient reports no difficulty finding words. All Systems reviewed and pertinent positives and negatives noted in HPI, all other symptoms are negative Objective: Vital signs reviewed. General: non toxic, no distress, appears at stated age, normal weight Derm: no unusual rashes/lesions, warm Head: atraumatic, normocephalic, symmetric Eyes: EOMI, no lid lag, anicteric sclera, pupils equal round reactive to light ENT: Nose and ears atraumatic Neck: No cervical lymphadenopathy, trachea midline, supple Mouth: no lip lesion, mucus membranes moist Cardiovascular: S1S2 reg, no murmur, positive dorsalis pedis pulse bilateral, no edema Lungs: CTA bilateral, no rhonchi, no rales, no accessory muscle use Abdominal: soft, nontender to palpation, no guarding Ext: muscle strength 5 out of 5 in all 4 extremities grossly, no gross muscle atrophy, no contractures, Neuro: CN II-XI grossly intact, no gross focal neuro deficits Psych: Alert, oriented, appropriate affect Data reviewed today: Labs: WBC 5.6, hemoglobin 11.8, hematocrit 36.8, MCV 95.7, platelet count 231, sodium 140, potassium 4.5, chloride 113, bicarb 22, BUN 24, creatinine 1.02, EGFR 58, calcium 8.9, magnesium 1.6 HbA1c 6.1, TSH 9.4, free T4 0.84 No new imaging Assessment and Plan: 73-year-old male with history of PUD, hypertension and hypothyroidism presents to the ER with symptoms of expressive aphasia. Patient is admitted for concerns regarding CVA, likely TIA versus acute ischemic stroke. #1 Expressive aphasia (now resolved), likely TIA CT brain on 11/12/2023 shows no acute intracranial hemorrhage or midline shift CT angio of the head and neck on 11/12/2023 is unremarkable for any significant vascular abnormality Neurology consulted MRI of the brain ordered; pending Continue neurochecks Cardiac monitoring PT/OT and speech evaluation Continue with aspirin 81 mg p.o. daily, Lipitor 80 mg p.o. at bedtime, Plavix 75 mg p.o. daily Discontinue IV normal saline #2 hypertension Resume home medication: Losartan 50 mg p.o. every morning #3 hypothyroidism TSH 9.4 Free T4 0.84 Resume home medication: Synthroid 50 mcg p.o. every morning Chronic conditions: Peptic ulcer disease: Resume omeprazole 20 mg p.o. every morning F: None E: Replete as needed N: Regular diet A: Ambulatory DVT ppx: Lovenox subcu 40 mg daily Code Status: Full code Anticipated discharge place: Home Anticipated discharge date: Pending clinical course Patient was seen and examined by me and the resident. I agree with the subjective and objective as above. We discussed the assessment and plan as documented below: Patient reports resolution of his aphasia. Back to baseline. Echo shows EF 30- 35%. A1c 6.1. TSH 9.47, FT4 0.84. Aphasia likely TIA: MRI brain, Lipid panel pending. Neurology on board. Continue ASA 81 mg PO QD. Lipitor 80 mg PO QHS. Plavix 75 mg PO QD. Neurology, PT/OT/ST on board. HFrEF: New onset? Not in acute exacerbation. Cardiology consulted for low EF. Pre-DM: Outpatient management. Subclinical hypothyroidism: Outpatient management. Objective - Vital Signs Vital signs: Vital Signs Temp 98.2 F 11/13/23 19:40 Pulse 85 11/13/23 19:40 Resp 18 11/13/23 19:40 BP 138/92 11/13/23 19:40 Pulse Ox 97 11/13/23 19:40 FiO2 Intake & Output 11/13/23 11/14/23 11/14/23 18:59 06:59 18:59 Weight 135.1 kg - Labs CBC & Chem 7: 11/14/23 05:01 11/14/23 05:01 Labs: Abnormal Lab Results - Last 24 Hours (Table) 11/14/23 11/14/23 Range/Units 05:01 05:01 RBC 3.85 L (4.30-5.90) m/uL Hgb 11.8 L (13.0-17.5) gm/dL Hct 36.8 L (39.0-53.0) % Lymphocytes # 0.8 L (1.0-4.8) k/uL Chloride 113 H (98-107) mmol/L BUN 24 H (9-20) mg/dL
--- NOTE | 2023-11-14 16:36 | P.PN ---
Subjective Progress Note Date: 11/14/23 I am following up with the patient and he states that his speech is drastically better today compared to yesterday. Denies of any new neurological issues. Objective - Vital Signs Vital signs: Vital Signs Temp 98.3 F 11/14/23 12:00 Pulse 84 11/14/23 12:00 Resp 18 11/14/23 12:00 BP 167/93 11/14/23 12:00 Pulse Ox 95 11/14/23 12:00 FiO2 Intake & Output 11/13/23 11/14/23 11/14/23 18:59 06:59 18:59 Intake Total 240 Balance 240 Weight 135.1 kg Intake: Oral 240 Other: Voiding Method Toilet # Voids 2 - Exam GENERAL: The patient is sitting in recliner chair and is not in acute distress. NEUROLOGICAL: Higher mental function: The patient is awake, alert, oriented to self, place and time. Patient is following commands. Aphasia has improved. No neglect. Cranial nerves: The pupils are round, equal and reactive to light and ac commodation. Visual avilez are full to confrontation throughout. Extraocular movement is intact no nystagmus is noted. Facial sensation is normal to touch throughout. The facial strength is normal throughout. Hearing is severely decreased bilaterally to hand rub. Tongue is midline and moved [id number] without any difficulty. No dysarthria is noted. Shoulder shrug is normal bilaterally. Motor: The strength is 5 over 5 throughout. Normal tone and bulk. Cerebellum: Normal finger to nose heel to ibrahim bilaterally. Sensation: Sensation is normal to touch throughout. Reflexes (right/left): B2+ Plantars are downgoing bilaterally. Some of the workup during this hospital visit consisted of: TSH is 9.470 Free T4 is 0.84 Hemoglobin A1c is 6.1. CT head is reported as no acute intracranial hemorrhage or midline shift. There is mild to moderate diffuse age-related cerebral atrophy and mild chronic small vessel ischemic changes redemonstrated. No significant change from prior. I reviewed the CT and I agree there is no acute or subacute stroke. CT angiography of the head and neck is reported as no significant vascular abnormalities identified. The echo was reported as left ventricular ejection fraction of 30 to 35%. Moderate dilated left atrium. Moderately mitral regurgitation. - Labs CBC & Chem 7: 11/14/23 05:01 11/14/23 05:01 Labs: Abnormal Lab Results - Last 24 Hours (Table) 11/14/23 11/14/23 11/14/23 Range/Units 05:01 05:01 05:01 RBC 3.85 L (4.30-5.90) m/uL Hgb 11.8 L (13.0-17.5) gm/dL Hct 36.8 L (39.0-53.0) % Lymphocytes # 0.8 L (1.0-4.8) k/uL Chloride 113 H (98-107) mmol/L BUN 24 H (9-20) mg/dL Hemoglobin A1c 6.1 H (<=6.0) % TSH 9.470 H (0.465-4.680) mIU/L Assessment and Plan Assessment: This is a 73-year-old gentleman present emergency department because of expressive aphasia. He notices symptoms at noon and his last normal was at midnight prior to that. Likely acute ischemic stroke in the patient presented with acute expressive aphasia. Per ED team he had NIH stroke scale of 2 for dysarthria and as well as aphasia. No IV thrombolytic because of outside the window and the risk outweigh the benefit--but today his speech improved Systolic heart failure (EF 30-35%) Underlying history of hypertension Very hard of hearing Questionable TIA that he was notified by his bond underwriter but unknown symptoms Plan: Patient was started on aspirin 81 mg by the primary team in addition I also started the patient on Plavix 75 mg daily. Patient was not on any antiplatelet prior to this. Continue Lipitor 80 mg nightly Pending MRI of the brain, lipid panel, hemoglobin Continue neurochecks Cardiac monitoring PT OT and TALENT PARTNER are consulted For systolic heart failure, consider cardiology consultation. Defer the rest of the medical management to primary team DVT prophylaxis the patient is on Lovenox Plan discussed with the patient and his nurse. Time with Patient: Less than 30
[2023-11-14] MEDS: allopurinoL 100 MG TAB PO SCH (16:47)
[2023-11-14] MEDS: LEVOTHYROXINE 50 MCG TAB PO SCH (16:47)
[2023-11-14] MEDS: PANTOPRAZOLE 40 MG TABLET PO SCH (16:47)
[2023-11-14] MEDS: METOPROLOL SUCCINATE (ER) 25 MG TAB.ER.24H PO SCH (17:40)
[2023-11-14 18:01] LABS: Chol/HDL Ratio 1.99 Ratio; LDL Cholesterol,Calculated 54.4 mg/dL (0.0-131.0); VLDL Calculation 11.16 mg/dL (5.00-40.00)
[2023-11-15 07:56] VITALS: TEMP 97.9
[2023-11-15] MEDS: METOPROLOL SUCCINATE (ER) 25 MG TAB.ER.24H PO STA (10:14)
[2023-11-15] MEDS: LORazepam 2 MG/ML INJ IV PRN (12:08)
--- NOTE | 2023-11-15 13:41 | MR ---
EXAMINATION TYPE: MR brain wo con DATE OF EXAM: 11/15/2023 12:47 PM CLINICAL INDICATION: Male, 73 years old with history of TIA; PHH, SOB, expressive aphasia. COMPARISON: 09/14/2022. TECHNIQUE: Multi planar, multi sequence imaging was performed through the brain including: T1, T2, In version recovery, Diffusion weighted imaging, and gradient echo imaging. No gadolinium was given. FINDINGS: The ulrich-white junctions, ventricular system, basal cisterns appear unremarkable. Scattered foci of high T2 signal intensity are seen within the periventricular white matter. Midline structures show n o abnormality. Diffusion-weighted imaging shows no evidence of restricted diffusion. The susceptibili ty weighted images do not reveal any evidence for micro-hemorrhage. The bone marrow signal is within normal limits. Paranasal sinuses and mastoid air cells: Trace left mastoid air cell effusion. Visualized orbits: Bilateral aphakia IMPRESSION: 1. No evidence of intracranial mass or acute/subacute infarct. 2. Nonspecific white matter changes, likely secondary to small vessel ischemic disease.
--- NOTE | 2023-11-15 14:28 | P.DS ---
Providers Date of admission: 11/13/23 00:03 Attending physician: Alesia Kapadia MD Discharge Diagnosis: 1. Expressive aphasia 2. TIA 3. Hypertension 4. Hypothyroidism 5. Peptic ulcer disease Hospital Course: 73-year-old male with past medical history of PUD, hypertension and hypothyroidism was brought to the emergency room by family for confusion on 11/13/2023. The symptoms reportedly started soon after waking up. The family also reported that the patient was confused, and not acting appropriately. He was reportedly unable to open his garage or get into his car which are his normal activities of daily living. He reports feeling essentially back to baseline at the time of interview. Patient also reports having a mild headache throughout the day which resolves shortly after arrival at the emergency room. He denied experiencing any weakness, numbness, tingling, visual impairment, or dizziness. Laboratory evaluation in the ER was remarkable for chloride 109, BUN 23, creatinine 1.22, glucose 120, troponin 0.[address] brain and CT angiogram of the head and neck revealed chronic small vessel ischemic changes with no acute abnormality. EKG reveals sinus rhythm with PVCs at 93 bpm with finding of left ventricular hypertrophy. Neurology was consulted patient was started on aspirin 81 mg p.o. daily and Plavix 75 mg p.o. daily. MRI of the brain done on 11/15/2023 shows no evidence of intracranial mass or acute or subacute infarct. There are some nonspecific white matter changes likely secondary to small vessel ischemic disease. Echocardiogram ordered 11/13/2023 shows ejection fraction 30 to 45% which is unchanged from previous echocardiogram. Patient was seen and examined at the bedside today. Reports no new concerns. Discharge condition/disposition: Patient will be discharged home. Discharge medications: New medication added aspirin 81 mg p.o. daily, Plavix 75 mg p.o. daily. Patient is advised to continue omeprazole 20 mg p.o. every morning, allopurinol 100 mg p.o. p.m, metoprolol succinate 25 mg p.o. every morning, Synthroid 50 mcg p.o. nightly, losartan potassium 50 mg p.o. nightly, atorvastatin 20 mg p.o. nightly, meloxicam 7.5 mg p.o. twice daily Additionally, patient was provided with handout on TIA. Discharge instruction: Patient is advised to follow-up with PCP at [facility] in 1 to 2 days Patient is advised to follow cardiology within 1 week Patient is advised to follow neurology within 1 week Vital signs reviewed. Gen: in no apparent distress, resting comfortably in bed Eyes: PERRL, no scleral injection or icterus HENT: normocephalic, atraumatic, good hearing acuity, moist mucous membranes Neck: full range of motion Resp: CTAB, no rales, rhonchi, or wheezes CVS: normal S1 and S2, no murmurs, rubs or gallops, no edema GI: soft, NTTP, ND, no hepatosplenomegaly : no suprapubic tenderness, no CVAT, guzman catheter [is/not] present MSK: no clubbing, no cyanosis, no noted contractures of extremities Skin: no noted rashes, petechiae; temperature of skin is appropriate Neuro: moving all extremities without signs of weakness, CN II-XII intact Psych: cooperative, euthymic mood, insight and judgment intact Consults: 11/13/23 00:01 Consult Physician Routine Consulting Provider: Foster Del Castillo Consult Reason/Comments: cva Do you want consulting provider notified?: Yes 11/14/23 15:33 Consult Physician Routine Consulting Provider: Jersey Ramsey Consult Reason/Comments: HFrEF Do you want consulting provider notified?: Yes Primary care physician: [facility] Hospital Course: Patient was seen and examined by me and the resident. I agree with the subjective and objective as above. We discussed the assessment and plan as documented below: Patient reports resolution of his aphasia. Back to baseline. MRI brain negative for acute pathology. Discussed results of MRI with patient. Advised Plavix for 21 days followed by ASA indefinitely. Cardiology has increased his Metoprolol to 50 mg PO QD. Apparently his systolic CHF is not a new finding when reviewing documentation from May. Follow up with PCP within 1-2 days, Neurology within 1 week and Cardiology within 3 weeks of discharge. Patient verbalized understanding of the plan. Discharge Diagnosis: TIA HFrEF: Pre-DM Subclinical hypothyroidism This complex discharge took 35 minutes to complete. Patient Condition at Discharge: Stable Plan - Discharge Summary Discharge Rx Participant: Yes New Discharge Prescriptions: New Aspirin 81 mg PO DAILY #90 tab Metoprolol Succinate (ER) [Toprol XL] 50 mg PO DAILY #30 tab Clopidogrel [Plavix] 75 mg PO DAILY #21 tab Continue Omeprazole [PriLOSEC] 20 mg PO QAM allopurinoL [Allopurinol] 100 mg PO QAM Levothyroxine Sodium [Synthroid] 50 mcg PO QAM Losartan Potassium 50 mg PO QAM Atorvastatin [Lipitor] 20 mg PO QAM Meloxicam [Mobic] 7.5 mg PO BID Discontinued Metoprolol Succinate [Metoprolol Succinate ER] 25 mg PO QAM Discharge Medication List Omeprazole [PriLOSEC] 20 mg PO QAM 06/21/16 [History] allopurinoL [Allopurinol] 100 mg PO QAM 06/21/16 [History] Levothyroxine Sodium [Synthroid] 50 mcg PO QAM 09/13/22 [History] Atorvastatin [Lipitor] 20 mg PO QAM 05/29/23 [History] Losartan Potassium 50 mg PO QAM 05/29/23 [History] Meloxicam [Mobic] 7.5 mg PO BID 11/13/23 [History] Aspirin 81 mg PO DAILY #90 tab 11/15/23 [Rx] Clopidogrel [Plavix] 75 mg PO DAILY #21 tab 11/15/23 [Rx] Metoprolol Succinate (ER) [Toprol XL] 50 mg PO DAILY #30 tab 11/15/23 [Rx] Follow up Appointment(s)/Referral(s): Sim Rodriguez MD [STAFF PHYSICIAN] - 3 Weeks (please call and make appointment) Foster Del Castillo MD [STAFF PHYSICIAN] - 1 Week (please call and make appointment ) [facility] [Primary Care Provider] - 1-2 days (please call and make appointment ) Patient Instructions/Handouts: Transient Ischemic Attack (DC), Holter Monitor (GEN) Discharge Disposition: HOME SELF-CARE
--- NOTE | 2023-11-15 14:50 | P.CRDCN ---
History of Present Illness Consult date: 11/15/23 Reason for Consult (text): HF rHF History of present illness: This is a 73-year-old male patient of Dr. Rodriguez with past medical history of nonischemic cardiomyopathy with EF greater than 35%, hypertension, hyperlipidemia. We have been asked to evaluate the patient for heart failure with reduced EF. Patient had an echocardiogram done in March 2023 that revealed EF of 52% with mild TR and mild MR. Patient had a repeat echocardiogram on this hospitalization which revealed EF of 30 to 35%, moderate MR, trace TR. Patient presented to the hospital as he woke up on Saturday had a very bad headache and he had some confusion. Patient has had a workup for TIA. He denies any history of palpitations. He denies chest pain, shortness of b reath, no lightheadedness or dizziness. Blood pressure 157/84, heart rate 81, pulse ox 95% on room air. EKG: Sinus rhythm with no acute ST-T wave changes. Chest x-ray: Laboratory studies: Hemoglobin 11.8. BUN 24 creatinine 1.22. Potassium 4.5. Troponin negative x 1. Triglycerides 55, cholesterol 132, LDL 54, HDL 66. TSH 9.47 and normal free T4. Home cardiac medications: Losartan 50 mg daily, atorvastatin 20 mg daily, metoprolol succinate 25 mg daily. Review Of Systems: At the time of my exam: CONSTITUTIONAL: Denies fever or chills. HEENT: Denies blurred vision, vision changes, or eye pain. Denies hemoptysis CARDIOVASCULAR: Denies chest pain. Denies orthopnea. Denies PND. Denies palp itations RESPIRATORY: Denies shortness of breath. GASTROINTESTINAL: Denies abdominal pain. Denies nausea or vomiting. HEMATOLOGIC: Denies bleeding disorders. GENITOURINARY: Denies any blood in urine. SKIN: Denies puritis. Denies rash. Physical examination: Gen: This is a 73-year-old male resting in bed in no acute distress VS: reviewed HEENT: Head is atraumatic, normocephalic. Pupils equal, round. Sclerae is anicteric. NECK: Supple. No JVD. LUNGS: Clear to auscultation. No wheezes or rhonchi. No intercostal retractions. HEART: Regular rate and rhythm. No murmur. ABDOMEN: Soft No tenderness. EXTREMITIES: No pedal edema. No calf tenderness. NEUROLOGICAL: Patient is awake, alert and oriented x3. Assessment: TIA Nonischemic cardiomyopathy Hypertension Hyperlipidemia Plan: Continue patient's home cardiac medications Increased Toprol XL to 50 mg daily Event monitor to be placed prior to discharge Patient to follow-up with Dr. Rodriguez in 3 weeks for results of event monitor and most likely outpatient stress test Thank you kindly for this consultation. Nurse practitioner note has been reviewed, I agree with documented findings and plan of care. Patient was seen and examined. Past Medical History Past Medical History: Hypertension Additional Past Medical History / Comment(s): HX DUODENAL ULCER, PROSTATE CANCER (SURGERY), MELANOMA ., GOUT, INFECTION AFTER WRIST SURGERY AND HARDWARE REMOVED AND CAST WAS APPLIED. 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 History of Any Multi-Drug Resistant Organisms: None Reported Past Surgical History: Orthopedic Surgery Additional Past Surgical History / Comment(s): COLONOSCOPY, EGD , RIGHT ROTATER CUFF, FX RIGHT WRIST SURGERY, rt cataract surgery. Past Anesthesia/Blood Transfusion Reactions: No Reported Reaction Past Psychological History: Anxiety Smoking Status: Former smoker Past Alcohol Use History: None Reported Past Drug Use History: None Reported - Past Family History Father Family Medical History: Cancer Additional Family Medical History / Comment(s): Prostate cancer. Mother Family Medical History: Cancer Additional Family Medical History / Comment(s): Lung cancer. Brother(s) Family Medical History: Cancer Additional Family Medical History / Comment(s): Prostate cancer. Medications and Allergies Home Medications Medication Instructions Recorded Confirmed Type Omeprazole [PriLOSEC] 20 mg PO QAM 06/21/16 11/13/23 History allopurinoL [Allopurinol] 100 mg PO QAM 06/21/16 11/13/23 History Levothyroxine Sodium [Synthroid] 50 mcg PO QAM 09/13/22 11/13/23 History Atorvastatin [Lipitor] 20 mg PO QAM 05/29/23 11/13/23 History Losartan Potassium 50 mg PO QAM 05/29/23 11/13/23 History Meloxicam [Mobic] 7.5 mg PO BID 11/13/23 11/13/23 History Aspirin 81 mg PO DAILY #90 tab 11/15/23 Rx Clopidogrel [Plavix] 75 mg PO DAILY #21 tab 11/15/23 Rx Metoprolol Succinate (ER) [Toprol 50 mg PO DAILY #30 tab 11/15/23 Rx XL] Allergies Allergy/AdvReac Type Severity Reaction Status Date / Time No Known Allergies Allergy Verified 11/13/23 08:31 Physical Exam Vitals: Vital Signs Temp Pulse Resp BP Pulse Ox 11/15/23 07:48 97.9 F 81 16 157/84 95 11/15/23 04:00 90 16 142/74 92 L 11/15/23 00:00 96 16 174/88 100 11/14/23 20:00 97.7 F 85 18 175/79 95 11/14/23 16:54 98.2 F 90 16 156/81 94 L 11/14/23 12:00 98.3 F 84 18 167/93 95 Intake and Output 11/14/23 11/15/23 11/15/23 22:59 06:59 14:59 Intake Total 780 10 Balance 780 10 Intake: IV 10 Invasive Line 1 10 Oral 780 Other: Voiding Method Toilet Toilet Toilet # Voids 1 3 Weight 134.9 kg Results 11/14/23 05:01 11/14/23 05:01 Lipids 11/14/23 Range/Units 05:01 Triglycerides 55.80 (0.00-149.00) mg/dL Cholesterol 132.00 (0.00-200.00) mg/dL HDL Cholesterol 66.40 H (40.00-60.00) mg/dL Cholesterol/HDL Ratio 1.99 Ratio Current Medications Generic Name Dose Route Start Last Admin Trade Name Freq PRN Reason Stop Dose Admin Allopurinol 100 mg 11/14/23 14:30 11/15/23 08:01 Allopurinol 100 Mg Tab PO 100 mg QAM [facility] Administration Aspirin 81 mg 11/14/23 09:00 11/15/23 08:01 Aspirin 81 Mg PO 81 mg DAILY [facility] Administration Atorvastatin Calcium 80 mg 11/13/23 21:00 11/14/23 20:11 Atorvastatin 80 Mg Tab PO 80 mg HS [facility] Administration Clopidogrel Bisulfate 75 mg 11/13/23 16:45 11/15/23 08:01 Clopidogrel 75 Mg Tab PO 75 mg DAILY [facility] Administration Enoxaparin Sodium 40 mg 11/13/23 09:00 11/15/23 08:01 Enoxaparin 40 Mg/0.4 Ml Syringe SQ 40 mg DAILY [facility] Administration Levothyroxine Sodium 50 mcg 11/14/23 14:30 11/15/23 08:01 Levothyroxine 50 Mcg Tab PO 50 mcg QAM [facility] Administration Lorazepam 2 mg 11/13/23 10:53 Lorazepam 2 Mg/Ml Inj IV ONCE PRN Anxiety Losartan Potassium 50 mg 11/14/23 12:45 11/15/23 08:01 Losartan 50 Mg Tab PO 50 mg QAM [facility] Administration Metoprolol Succinate 25 mg 11/14/23 17:15 11/15/23 08:01 Metoprolol Succinate (Er) 25 Mg Tab.Er.24h PO 25 mg QAM [facility] Administration Pantoprazole Sodium 40 mg 11/14/23 14:30 11/15/23 06:23 Pantoprazole 40 Mg Tablet PO 40 mg 0730 [facility] Administration Intake and Output 11/14/23 11/15/23 11/15/23 22:59 06:59 14:59 Intake Total 780 10 Balance 780 10 Intake: IV 10 Invasive Line 1 10 Oral 780 Other: Voiding Method Toilet Toilet Toilet # Voids 1 3 Weight 134.9 kg 11/14/23 05:01 11/14/23 05:01
--- NOTE | 2023-11-15 15:22 | P.PN ---
Subjective Progress Note Date: 11/15/23 Patient feels about the same. Denies any new neurological issues. He is have MRI of the brain today hopefully. Objective - Vital Signs Vital signs: Vital Signs Temp 97.9 F 11/15/23 07:48 Pulse 80 11/15/23 12:13 Resp 16 11/15/23 12:13 BP 177/89 11/15/23 12:13 Pulse Ox 94 L 11/15/23 12:13 FiO2 Intake & Output 11/14/23 11/15/23 11/15/23 18:59 06:59 18:59 Intake Total 480 540 364 Balance 480 540 364 Weight 134.9 kg Intake: IV 10 Invasive Line 1 10 Oral 480 540 354 Other: Voiding Method Toilet Toilet Toilet # Voids 2 3 2 - Exam GENERAL: The patient is sitting in recliner chair and is not in acute distress. NEUROLOGICAL: Higher mental function: The patient is awake, alert, oriented to self, place and time. Patient is following commands. Aphasia has improved. No neglect. Cranial nerves: The pupils are round, equal and reactive to light and accommodation. Visual avilez are full to confrontation throughout. Extraocular movement is intact no nystagmus is noted. Facial sensation is normal to touch throughout. The facial strength is normal throughout. Hearing is severely decreased bilaterally to hand rub. Tongue is midline and moved [id number] without any difficulty. No dysarthria is noted. Shoulder shrug is normal bilaterally. Motor: The strength is 5 over 5 throughout. Normal tone and bulk. Cerebellum: Normal finger to nose heel to ibrahim bilaterally. Sensation: Sensation is normal to touch throughout. Reflexes (right/left): B2+ Plantars are downgoing bilaterally. Some of the workup during this hospital visit consisted of: TSH is 9.470 Free T4 is 0.84 Hemoglobin A1c is 6.1. Lipid panel is triglyceride 55, cholesterol 132, LDL is 54 and HDL is 66 CT head is reported as no acute intracranial hemorrhage or midline shift. There is mild to moderate diffuse age-related cerebral atrophy and mild chronic small vessel ischemic changes redemonstrated. No significant change from prior. I re viewed the CT and I agree there is no acute or subacute stroke. CT angiography of the head and neck is reported as no significant vascular abnormalities identified. 2D echo was reported as left ventricular ejection fraction of 30 to 35%. Moderate dilated left atrium. Moderately mitral regurgitation. - Labs CBC & Chem 7: 11/14/23 05:01 11/14/23 05:01 Labs: Abnormal Lab Results - Last 24 Hours (Table) 11/14/23 Range/Units 05:01 HDL Cholesterol 66.40 H (40.00-60.00) mg/dL Assessment and Plan Assessment: This is a 73-year-old gentleman present emergency department because of expressive aphasia. He notices symptoms at noon and his last normal was at midnight prior to that. Likely acute ischemic stroke in the patient presented with acute expressive aphasia. Per ED team he had NIH stroke scale of 2 for dysarthria and as well as aphasia. No IV thrombolytic because of outside the window and the risk outweigh the benefit--but today his speech improved Systolic heart failure (EF 30-35%) Underlying history of hypertension Very hard of hearing Questionable TIA that he was notified by his r developer but unknown symptoms Plan: Patient was started on aspirin 81 mg by the primary team in addition I also started the patient on Plavix 75 mg daily. Patient was not on any antiplatelet prior to this. Recommend dual antiplatelet for 21 days and after 21 days stop Plavix but continue aspirin indefinitely. Continue Lipitor 80 mg nightly Pending MRI of the brain. Continue neurochecks Cardiac monitoring PT OT and PERSONAL CARE HOME ADMINISTRATOR are consulted For systolic heart failure according to the primary team he had this in the past and will defer management to his r developer Defer the rest of the medical management to primary team Upon discharge recommend the patient to follow-up with a neurologist as an outpatient within 2 weeks. DVT prophylaxis the patient is on Lovenox Plan discussed with the patient and her team MRI of the brain is unremarkable then no further neurological workup. Dr. Montoya, will resume neurology service tomorrow AM Time with Patient: Less than 30
[2023-11-15 16:27] VITALS: BP 166/85; PULSE 75; RESP 18
[2023-11-16] MEDS ORDERED: METOPROLOL SUCCINATE (ER) 50 MG TAB.ER.24H PO SCH (09:00)
== END 2023-11-15 17:05 | disposition home or self-care (01) | DRG 69 ==
LOC: EC 22:32 → 3SCARD 11-13 00:03
PROVIDERS: ADMIT Internal Medicine; ATTEND Internal Medicine
DX: G45.9 Transient cerebral ischemic attack, unspecified (principal); I50.20 Unspecified systolic (congestive) heart failure; R47.01 Aphasia; I42.8 Other cardiomyopathies; I11.0 Hypertensive heart disease with heart failure; R74.01 Elevation of levels of liver transaminase levels; E03.9 Hypothyroidism, unspecified; I08.1 Rheumatic disorders of both mitral and tricuspid valves; K27.9 Peptic ulcer, site unspecified, unspecified as acute or chronic, without hemorrhage or perforation; Z79.890 Hormone replacement therapy
CPT/HCPCS: 36415; 70450; 70496; 70498; 70551; 80048; 80053; 80061; 82550; 83036; 83735; 84439; 84443; 84484; 85025; 85610; 85730; 93005; 93270; 93306; 96360; 96361; 96372; 99291

== ENCOUNTER → 2023-12-23 | Outpatient (CLI) | payer OTHER, MEDICARE ==
[2023-12-23 15:18] LABS: ALT 20 U/L (10-49); AST 24 U/L (14-35); Chol/HDL Ratio 2.19 Ratio; LDL Cholesterol,Calculated 68.6 mg/dL (0.0-131.0); VLDL Calculation 12.92 mg/dL (5.00-40.00)
== END | disposition home or self-care (01) ==
LOC: LABWHC1 09:56
PROVIDERS: ATTEND Internal Medicine Interventional Cardiology
DX: E78.2 Mixed hyperlipidemia (principal)
CPT/HCPCS: 36415; 80061; 84450; 84460

== ENCOUNTER 2024-01-03 05:57 | Day surgery (SDC) | payer MEDICARE, OTHER ==
[2023-12-31 12:09] VITALS: BMI 38.6
[2024-01-03] MEDS ORDERED: ASPIRIN 325 MG TAB PO STA (06:01)
[2024-01-03] MEDS ORDERED: ATORVASTATIN 80 MG TAB PO STA (06:01)
[2024-01-03] MEDS ORDERED: NITROGLYCERIN SL TABS 0.4 MG TAB SUBLINGUAL PRN (06:01)
[2024-01-03] MEDS ORDERED: ALPRAZolam 0.5 MG TAB PO PRN (06:01)
[2024-01-03] MEDS ORDERED: ALPRAZolam 0.25 MG TAB PO PRN (06:01)
[2024-01-03] MEDS: SODIUM CHLORIDE 0.9% 1,000 ML in EMPTY BAG 1 BAG IV SCH (06:09)
[2024-01-03] MEDS: IV FLUID CONTINUATION 1,000 ML IV ONE (06:10)
[2024-01-03 06:44] LABS: Basophils % (A) 1 %; Eosinophils # (A) 0.2 k/uL (0-0.7); Eosinophils % (A) 3 %; HCT 38.2 % (39.0-53.0); HGB 12.9 gm/dL (13.0-17.5); Lymphocytes # (A) 1.3 k/uL (1.0-4.8); Lymphocytes % (A) 18 %; MCH 31.7 pg (25.0-35.0); MCHC 33.9 g/dL (31.0-37.0); MCV 93.5 fL (80.0-100.0); Mean Platelet Volume 9.2; Monocytes # (A) 0.6 k/uL (0-1.0); Monocytes % (A) 8 %; Neutrophils # (A) 4.9 k/uL (1.3-7.7); Neutrophils % (A) 68 %; Platelet Count 229 k/uL (150-450); RBC 4.09 m/uL (4.30-5.90); RDW 14.7 % (11.5-15.5); WBC 7.1 k/uL (3.8-10.6)
[2024-01-03 06:45] VITALS: TEMP 98.2
[2024-01-03 07:04] LABS: African American GFR (CKD) 72 (>60 ml/min/1.73 sqM); Anion Gap 12 mmol/L; Blood Urea Nitrogen 24 mg/dL (9-20); Calcium 9.3 mg/dL (8.4-10.2); Carbon Dioxide 23 mmol/L (22-30); Chloride 108 mmol/L (98-107); Glucose 107 mg/dL (74-99); Non-African American GFR(CKD) 62 (>60 ml/min/1.73 sqM); Potassium 3.9 mmol/L (3.5-5.1); Sodium 143 mmol/L (137-145)
[2024-01-03] MEDS: HEPARIN SODIUM,PORCINE (1 ML) 2,500 UNIT in SODIUM CHLORIDE 0.9% 250 ML IRRIGATION PRN (07:22)
[2024-01-03] MEDS: HEPARIN SODIUM,PORCINE 10,000 UNIT in SODIUM CHLORIDE 0.9% 1,000 ML IRRIGATION PRN (07:22)
[2024-01-03] MEDS: fentaNYL (PF) 50 MCG/ML 2 ML AMP IVP ONE (07:36)
[2024-01-03] MEDS: LIDOCAINE 1% INJ 10MG/ML (20 ML MDV) SQ ONE (07:39)
[2024-01-03] MEDS: VERAPAMIL SYRINGE (5 MG/10 ML) INTRAARTER ONE (07:40)
[2024-01-03] MEDS: HEPARIN SODIUM 1,000 UN/ML (10ML VL) IV ONE (07:45)
[2024-01-03] MEDS: IOPAMIDOL-370 100ML BTL INJ ONE (07:54)
[2024-01-03] MEDS ORDERED: RX INFO: IV CONTRAST WAS GIVEN 1 EACH MISC MISCELLANE PRN (08:06)
--- NOTE | 2024-01-03 08:12 | P.CARDCATH ---
Date of Procedure: 01/03/24 Description of Procedure: Cardiac Catheterization: The patient is a 73-year-old male with a known history of hypertension and hyperlipidemia who has been complaining of dyspnea on exertion, has a history of cardiomyopathy and had an abnormal MPI. Recommendations were made regarding cardiac catheterization, the risks and the complications were discussed with the patient who is in full understanding and agreement. Procedure Description: Patient was brought to labor custodian in fasting semi-sedated state after receiving Fentanyl and Benadryl achieiving moderate conscious sedated state. Using Xylocaine Anesthesia and modified Seldinger technique, a 6-Albanian sheath was introduced in the right radial artery . Subsequently, selective coronary angiography was performed using a 5-Albanian 3.5 bend Inez catheter. Multiple views of the coronary artery including hemiaxial views were obtained. The 6 Albanian pigtail catheter was used to cross the aortic valve and LVEDP was calculated. Following that, catheter and sheath were removed. Hemostasis was obtained with deployment of vascular band . There was no immediate complication. Patient was returned to room in stable condition. Of note, the patient received a total of 5000 units of intravenous heparin as well as intra-arterial verapamil. Findings: Fluoroscopy: Calcifications of the coronary arteries was noted. Left main: This is a large size vessel, bifurcating into LAD and left circumflex, left main has no obstructive disease LAD: This is a large size vessel, reaching to the apex, giving rise to a large diagonal branch proximally. The LAD is calcified proximally, has a 30% lesion proximally and another 30 to 40% plaque in the midsegment, the rest of the vessel has no high-grade stenosis Left circumflex: This is a large nondominant vessel, giving rise to 3 obtuse marginal branch, the second and third obtuse marginal branch are larger in ca liber. The proximal left circumflex has an eccentric 30 to 40% plaque with no high-grade stenosis RCA: This is a large dominant vessel, bifurcating distally to PDA and PLV. The right coronary artery has mild intimal disease throughout its course of 20 to 30% with no high-grade stenosis Left Ventriculogram: Not performed Hemodynamics: There was no gradient across the aortic valve, LVEDP was 20-24 mmHg Conclusion: 1. Calcified coronary arteries 2. Mild to moderate triple-vessel disease 3. Right dominance 4. Elevated LVEDP Recommendations: The patient will continue on medical therapy with aggressive coronary risks modifications. The findings and the recommendations were discussed with the patient and he was in full understanding and agreement. Duration of sedation is 16 minutes.
[2024-01-03] MEDS ORDERED: SODIUM CHLORIDE 0.9% 1,000 ML IV SCH (08:15)
[2024-01-03] MEDS ORDERED: LOSARTAN 50 MG TAB PO SCH (09:00)
[2024-01-03] MEDS ORDERED: ATORVASTATIN 20 MG TAB PO SCH (09:00)
[2024-01-03] MEDS ORDERED: MELOXICAM 7.5 MG TAB PO SCH (09:00)
[2024-01-03] MEDS ORDERED: NON FORMULARY DRUG (Omeprazole 20 MG Capsule.Dr) PO SCH (09:00)
[2024-01-03] MEDS ORDERED: allopurinoL 100 MG TAB PO SCH (09:00)
[2024-01-03] MEDS ORDERED: METOPROLOL SUCCINATE (ER) 50 MG TAB.ER.24H PO SCH (09:00)
[2024-01-03] MEDS ORDERED: ASPIRIN 81 MG PO SCH (09:00)
[2024-01-03] MEDS ORDERED: LEVOTHYROXINE 50 MCG TAB PO SCH (09:00)
[2024-01-03 09:07] VITALS: RESP 16
[2024-01-03 12:23] VITALS: BP 155/82; PULSE 78
== END 2024-01-03 11:27 | disposition home or self-care (01) ==
LOC: CATHCVL 05:57
PROVIDERS: ATTEND Internal Medicine Interventional Cardiology
CPT/HCPCS: 80048; 85025; 93458

== ENCOUNTER → 2024-02-14 | Outpatient (CLI) | payer OTHER ==
[2024-02-14 14:28] LABS: African American GFR (CKD) 53 (>60 ml/min/1.73 sqM); Blood Urea Nitrogen 48 mg/dL (9-20); Non-African American GFR(CKD) 45 (>60 ml/min/1.73 sqM)
--- NOTE | 2024-02-14 16:12 | CT ---
EXAMINATION TYPE: CT ChestAbdPelvis w con DATE OF EXAM: 02/14/2024 3:58 PM COMPARISON: 07/17/2022 CLINICAL INDICATION: Male, 73 years old with history of C21.0 MALIGNANT NEOPLASM OF ANUS, UNSPECIFIED ; PHH, Anal CA. Technique: CT ChestAbdPelvis w con; Multiple axial images were obtained. Two-dimensional coronal and sagittal reconstructions were obtained. Contrast used:80 ml mL of Isovue 300 with IV Contrast, (None if empty) Oral contrast used: with Oral Contrast CT DLP: 2375 mGycm, Automated exposure control for dose reduction was used. Findings: CHEST: LUNGS/ PLEURA: No focal consolidation, pneumothorax or pleural effusion. AIRWAY: Patent and unremarkable. HEART: Size within normal limits. MEDIASTINUM: No gross evidence of adenopathy. VASCULATURE: No aortic aneurysm. MUSCULOSKELETAL: No acute osseous abnormalities. SOFT TISSUES/LYMPH NODES: Unremarkable. LOWER NECK: No significant findings. ABDOMEN: ABDOMEN LIVER: Diffusely hypoattenuating parenchyma. GALLBLADDER AND BILE DUCTS: Layering gallstones in the gallbladder lumen. PANCREAS: Unremarkable. SPLEEN: Unremarkable. ADRENAL GLANDS: Unremarkable. KIDNEYS AND URETERS: No evidence of hydronephrosis or renal calculus. The ureters are unremarkable. PELVIS BLADDER: Unremarkable REPRODUCTIVE: Unremarkable. ABDOMEN & PELVIS STOMACH AND BOWEL: No evidence of bowel obstruction. Scattered colonic diverticula. PERITONEUM/RETROPERITONEUM: No evidence of pneumoperitoneum or free fluid. VASCULATURE: No evidence of aortic aneurysm. MUSCULOSKELETAL: No acute osseous abnormalities. Mild disc degeneration changes are present throughou t the thoracolumbar spine. Moderate degeneration changes of the hips with osteophyte formation and shari int space tearing. LYMPH NODES: No gross evidence for lymphadenopathy. SOFT TISSUE/ABDOMINAL WALL: Unremarkable IMPRESSION: 1. No new or enlarging lymph nodes. No evidence for recurrence. Some artifact limits evaluation of t he rectal wall. 2. Colonic diverticulosis. 3. Hepatic steatosis. 4. Cholelithiasis. 5. Severe degeneration changes of the hips left greater than right. [facility], , 02/14/2024 4:10 PM
== END | disposition home or self-care (01) ==
LOC: RADCTMAIN 13:33
PROVIDERS: ATTEND Internal Medicine Hematology & Oncology
DX: C21.0 Malignant neoplasm of anus, unspecified (principal); K57.30 Diverticulosis of large intestine without perforation or abscess without bleeding; K76.0 Fatty (change of) liver, not elsewhere classified; K80.20 Calculus of gallbladder without cholecystitis without obstruction; R91.1 Solitary pulmonary nodule; I10 Essential (primary) hypertension; M10.9 Gout, unspecified; Z71.3 Dietary counseling and surveillance
CPT/HCPCS: 82565; 84520; 71260; 74177; 36415; Q9967

== ENCOUNTER → 2024-02-24 | Outpatient (CLI) | payer OTHER ==
[2024-02-25 02:49] LABS: BUN/Creat Ratio 28.94 Ratio (12.00-20.00); Blood Urea Nitrogen 52.1 mg/dL (9.0-27.0); Calcium 9.6 mg/dL (8.7-10.3); Carbon Dioxide 21.4 mmol/L (21.6-31.8); Chloride 104 mmol/L (96-109); Glucose 108 mg/dL (70-110); Potassium 4.9 mmol/L (3.5-5.5); Sodium 142 mmol/L (135-145)
== END | disposition home or self-care (01) ==
LOC: LABWHC1 14:27
PROVIDERS: ATTEND Internal Medicine Interventional Cardiology
DX: I10 Essential (primary) hypertension (principal)
CPT/HCPCS: 36415; 80048

== ENCOUNTER → 2024-03-24 | Outpatient (CLI) | payer OTHER ==
[2024-03-24 20:01] LABS: NT-Pro-B-Type Natriuretic Pept 119 pg/mL (0-450)
[2024-03-24 21:50] LABS: ALT 31 U/L (10-49); AST 25 U/L (14-35); Albumin 4.4 g/dL (3.8-4.9); Albumin/Globulin Ratio 1.52 Ratio (1.60-3.17); Alkaline Phosphatase 98 U/L (41-126); BUN/Creat Ratio 24.61 Ratio (12.00-20.00); Blood Urea Nitrogen 44.3 mg/dL (9.0-27.0); Calcium 9.5 mg/dL (8.7-10.3); Carbon Dioxide 19.5 mmol/L (21.6-31.8); Chloride 106 mmol/L (96-109); Chol/HDL Ratio 2.26 Ratio; Globulin 2.9 g/dL (1.6-3.3); Glucose 114 mg/dL (70-110); LDL Cholesterol,Calculated 59.2 mg/dL (0.0-131.0); Potassium 4.9 mmol/L (3.5-5.5); Sodium 144 mmol/L (135-145); Total Bilirubin 0.3 mg/dL (0.3-1.2); Total Protein 7.3 g/dL (6.2-8.2); VLDL Calculation 18.18 mg/dL (5.00-40.00)
== END | disposition home or self-care (01) ==
LOC: LABWHC1 12:15
PROVIDERS: ATTEND Internal Medicine Interventional Cardiology
DX: I42.8 Other cardiomyopathies (principal); E78.2 Mixed hyperlipidemia
CPT/HCPCS: 36415; 80053; 80061; 83880

== ENCOUNTER → 2024-06-05 | Outpatient (CLI) | payer OTHER ==
[2024-06-05 15:18] LABS: BUN/Creat Ratio 21.45 Ratio (12.00-20.00); Blood Urea Nitrogen 42.9 mg/dL (9.0-27.0); Calcium 9.4 mg/dL (8.7-10.3); Carbon Dioxide 22.5 mmol/L (21.6-31.8); Chloride 110 mmol/L (96-109); Glucose 120 mg/dL (70-110); Potassium 5.4 mmol/L (3.5-5.5); Sodium 147 mmol/L (135-145)
== END | disposition home or self-care (01) ==
LOC: LABWHC1 11:35
PROVIDERS: ATTEND Internal Medicine Clinical Cardiac Electrophysiology
DX: N18.9 Chronic kidney disease, unspecified (principal)
CPT/HCPCS: 36415; 80048

== ENCOUNTER → 2024-08-03 | Outpatient (CLI) | payer OTHER ==
[2024-08-03 16:53] LABS: BUN/Creat Ratio 22.07 Ratio (12.00-20.00); Blood Urea Nitrogen 30.9 mg/dL (9.0-27.0); Calcium 9.2 mg/dL (8.7-10.3); Carbon Dioxide 21.9 mmol/L (21.6-31.8); Chloride 106 mmol/L (96-109); Glucose 109 mg/dL (70-110); Potassium 4.7 mmol/L (3.5-5.5); Sodium 142 mmol/L (135-145)
== END | disposition home or self-care (01) ==
LOC: LABWHC1 11:54
PROVIDERS: ATTEND Nurse Practitioner Adult Health
DX: N18.9 Chronic kidney disease, unspecified (principal)
CPT/HCPCS: 36415; 80048

== ENCOUNTER 2024-08-28 12:42 | Day surgery (SDC) | payer OTHER ==
[2024-08-28] MEDS ORDERED: LIDOCAINE 1% (10MG/ML) FOR IV START INTRADERMA PRN (13:43)
[2024-08-28 14:06] VITALS: TEMP 97.5
[2024-08-28 14:06] LABS: Glucose,Whole Blood 107 mg/dL (70-110)
[2024-08-28] MEDS: LACTATED RINGERS 1,000 ML IV SCH (14:06)
[2024-08-28] MEDS: IV FLUID CONTINUATION 1,000 ML IV ONE (14:06)
[2024-08-28] MEDS ORDERED: PROPOFOL 10 MG/ML 20 ML VIAL IV ONE (14:40)
[2024-08-28] MEDS ORDERED: LIDOCAINE 2% (PF) 20 MG/ML 5 ML VIAL ONE (14:40)
--- NOTE | 2024-08-28 14:59 | P.PCN ---
Date of Procedure: 08/28/24 Procedure(s) Performed: BRIEF HISTORY: Patient is a 73-year-old pleasant male scheduled for an elective colonoscopy as a part of screening for history of anal cancer diagnosed 5 years ago. He is s/p radiation and chemotherapy and last colonoscopy was 3 years ago that was normal PROCEDURE PERFORMED: Colonoscopy. PREOPERATIVE DIAGNOSIS: Screening for history of anal cancer. IV sedation per Anesthesia. PROCEDURE: After informed consent was obtained, the patient, was brought into the endoscopy unit. IV sedation was administered by Anesthesia under continuous monitoring. Digital rectal examination was normal. Initially the Olympus CF-160 flexible video colonoscope was then inserted in the rectum, gradually advanced into the cecum without any difficulty. Careful examination was performed as the scope was gradually being withdrawn. Ileocecal valve and the appendiceal orifice were visualized and appeared normal. Prep was excellent. Mucosa of the cecum, ascending colon, transverse colon, descending colon, sigmoid colon, and rectum appeared normal. In the distal rectum there was scattered telangiectasias identified with no active bleeding. Scattered sigmoid diverticulosis seen. Retroflexion was performed in the rectum and no lesions were seen. The patient tolerated the procedure well. 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 RECOMMENDATIONS: Findings of this examination were discussed with the patient as well as his family. He was advised to have repeat screening colonoscopy in 5 years..
[2024-08-28 15:30] VITALS: BP 117/63; PULSE 93; RESP 16
== END 2024-08-28 15:36 | disposition home or self-care (01) ==
LOC: ORWHC2ENDO 12:42
PROVIDERS: ATTEND Internal Medicine Gastroenterology
DX: Z12.11 Encounter for screening for malignant neoplasm of colon (principal); K57.30 Diverticulosis of large intestine without perforation or abscess without bleeding; K62.7 Radiation proctitis; Z85.048 Personal history of other malignant neoplasm of rectum, rectosigmoid junction, and anus; Z92.21 Personal history of antineoplastic chemotherapy; Z92.3 Personal history of irradiation
CPT/HCPCS: 45378; J2704; J2003